=== PATIENT | male | born 1990 | race Caucasian/White ===

== ENCOUNTER 2023-08-26 09:00 | Outpatient (RCR) | payer OTHER, SELFPAY ==
--- NOTE | 2023-04-18 17:20 | PT.OIE ---
Current Diagnoses Pain in unspecified knee (04/18/23) Visit Care Team Role Provider Type THADDEUS Garcia Attending Provider Non-Staff Family Provider Primary Care Provider Referring Provider Specialty: Nursing Address: [facility], Fax: Email: Physical Therapy Initial Evaluation PT-OP-A Visit Information Start: 04/17/23 18:16 Freq: Status: Active Protocol: Document 04/18/23 08:14 NM (Rec: 04/18/23 09:44 NM [id number]) Out-Patient Physical Therapy Visit Information Visit Information Visit Type Initial Evaluation Visit Note 12 visits after eval Visit Start Time 08:15 Visit Stop Time 09:00 Visit Number 1 Evaluation Information Evaluation Date 04/18/23 PT-OP-B Current Condition Start: 04/17/23 18:16 Freq: Status: Active Protocol: Document 04/18/23 08:14 NM (Rec: 04/18/23 09:44 NM [id number]) Current Condition History of Current Condition Onset Date 2 years Current Complaints knee pain History of Current Condition Pt presents with B knee pain. Pt also has B wrist pain, R hip, and low back pain; reports pain not consistent. Pt doesn't have a specific known onset or mechanism of injury for knee pain, but believes that he was performing strenous workouts in the past which likely contributed (e.g. heavy weight lifting including squats, deadlift). Reports has not improved over time. Currently, limiting activity due to discomfort. No reports of instability, locking, clicking . No hx of knee injuries, surgeries. No hx hip, ankle, or back injuries. Family hx of RA (mother, onset 40's); no known inflammatory disease. Pain does not feel like it's moving around in knee. Reports that he is able to push through pain without difficulty, but states that it's annoying. Prior Treatments and Tests No imaging, previous PT Prior Functional Status Baseline Function- ADL's Independent Baseline Function- Mobility Independent Baseline Function- Recreation/Hobbies Exercise/weight lifting 5x/wk (combo leg, arm, back days), running as exercise prn Current Functional Impairments (Reported) Functional Limitations- Recreation/ currently limiting physical Hobbies activity unless necessary for work PT-OP-C Subjective Start: 04/17/23 18:16 Freq: Status: Active Protocol: Document 04/18/23 08:14 NM (Rec: 04/18/23 09:44 NM [id number]) OP-PT Subjective Patient Comments Patient Comments see hx above knee Patient Questionnaires Lower Extremity Functional Scale LEFS Score 80 OP-PT Pain Assessment Location R knee Pain Location Details superior, inferior patella Intensity 3 Scale Used Numeric (0 - 10) Description Aching,Dull Frequency Intermittent Variations/Patterns occurs at rest, during exercise Pain Aggravating Factors Activity,Lifting Other Pain Aggravating Factors Movement; lifting (all LE exercise- knee extensions, kiswahili squats), run Pain Alleviating Factors Cold Other Pain Alleviating Factors stinging nettle tea L knee Pain Location Details superior, inferior to patella, medial knee near patella Intensity 3 Scale Used Numeric (0 - 10) Description Aching,Dull,With Movement Frequency Intermittent Variations/Patterns occurs at rest, during exercise Pain Aggravating Factors Activity,Lifting Other Pain Aggravating Factors Movement; lifting (all LE exercise- knee extensions, kiswahili squats), run Pain Alleviating Factors Cold Other Pain Alleviating Factors stinging nettle tea PT-OP-D Balance Start: 04/17/23 18:16 Freq: Status: Active Protocol: Document 04/18/23 08:14 NM (Rec: 04/18/23 09:44 NM [id number]) Balance Tests Single Limb Standing Single Limb- Right 10 sec, increased sway, no pain Single Limb- Left 10 sec, increased sway, no pain Tandem Tandem Standing 5 sec EC, 20 sec EO before LOB PT-OP-E Functional Tests Start: 04/17/23 18:16 Freq: Status: Active Protocol: Document 04/18/23 08:14 NM (Rec: 04/18/23 09:44 NM [id number]) Functional Tests Squat Test Score 10 Comments up and down pain, valgus, dec DF, Single Leg Squat Test Score 1 ea Comment deep pistol; valgus B, dec DF Other Eccentric step down Name of Test 4 step Comment B knee valgus, pronation, trendelenburg Hop Name of Test double leg hop; single leg hop Score pain with landing double hop; single leg hop pain with ascend/landing Comment lands with valgus on all attempts, pronation at ankle, hip drop PT-OP-F Manual Assessment Start: 04/17/23 18:16 Freq: Status: Active Protocol: Document 04/18/23 08:14 NM (Rec: 04/18/23 09:44 NM [id number]) Manual Assessments Soft Tissue Assessment Soft Tissue Mobility Assessment Decreased hamstring length bilaterally; not formally measured Joint Mobility Assessment Joint Mobility Assessment No B knee instability, no pain with tibial IR/ER. Decreased B hip AROM and PROM. Slight lateral patellar tracking with short and long sitting knee ext, decreased superior translation in sitting. B knee crepitus with repeated knee flex/ext PT-OP-G Mobility & Gait Start: 04/17/23 18:16 Freq: Status: Active Protocol: Document 04/18/23 08:14 NM (Rec: 04/18/23 09:44 NM [id number]) OP Gait Assessment Gait Gait Assistance Required: Independent Distance (Feet) 200 Assistive Devices Assistive Device None Comments Gait Comments Narrow stance. Increased pronation with gait, B foot ER in stance and during swing. Early toe off. Stair Climbing Evaluation Evaluation Level of Assist On Stairs Independent Devices Stair Climbing Assistive Devices None Technique/Endurance Stair Climbing Direction Ascend and Descend Stair Climbing Technique Step Over Step Number of Steps Climbed 4 Stair Climbing Set # Repetitions (reps) 1 Comments Stair Climbing Comments Anterior knee pain with descent, knee valgus and foot pronation bilaterally PT-OP-J Posture/Palpation/Skin Start: 04/17/23 18:16 Freq: Status: Active Protocol: Document 04/18/23 08:14 NM (Rec: 04/18/23 09:44 NM [id number]) Posture Evaluation Position Standing Evaluation View posterior, lateral Head/C-Spine Posture Forward Head T-Spine Posture Increased Kyphosis L-Spine Posture Increased Lordosis Shoulder Posture (L) Rounded,(R) Rounded Scapula Posture (L) Protracted,(R) Protracted Arm Posture (L) Internally Rotated,(R) Internally Rotated Pelvis Posture Anteriorly Tilted Weight Distribution Balanced Hip Posture (L) Externally Rotated,(R) Externally Rotated Knee Posture (L) Genu Valgus,(R) Genu Valgus Patellar Posture (L) Superior,(R) Superior,(L) Laterally Tilted,(R) Laterally Tilted Ankle/Foot Posture (L) Pronated,(R) Pronated Palpation Assessment Location R knee Palpation Location patella, fibula, joint line, tibia, medial and lateral condyles Palpation Findings Tenderness Palpation Details Tenderness along superomedial patella, worse after resisted extension; minimally tender to palpation. No other tenderness noted along patella , joint lines, tibia, femoral condyles. hips not tender to palpation L knee Palpation Location patella, fibula, joint line, tibia, medial and lateral condyles Palpation Findings Tenderness Palpation Details Tenderness along superomedial patella, worse after resisted extension; minimally tender to palpation. No other tenderness noted along patella , joint lines, tibia, femoral condyles. hips not tender to palpation Skin Assessment Other Assessments Skin Assessment Comments No swelling noted in B knees PT-OP-K Range of Motion Start: 04/17/23 18:16 Freq: Status: Active Protocol: Document 04/18/23 08:14 NM (Rec: 04/18/23 09:44 NM [id number]) Hip Goniometric Range of Motion Hip right Flexion w/Knee Flexed 115 Extension 10 Abduction 20 Internal Rotation 17 External Rotation 30 Comments Pain with AROM hip IR Left Flexion w/Knee Flexed 115 Extension 10 Abduction 20 Internal Rotation 15 External Rotation 30 Hip ROM Limitations Hip ROM Limitations Soft Tissue Tightness Comments hip internal rotation Knee Goniometric Range of Motion Knee Right Flexion Active (degrees) 145 Flexion Passive (degrees) 147 Extension Active (degrees) 0 Hyper-Extension Active 4 Comments No pain with active flex/ext translation Left Flexion Active (degrees) 140 Flexion Passive (degrees) 145 Extension Active (degrees) 0 Hyper-Extension Active 5 Comments No pain with active flex/ext translation Ankle and Foot Goniometric Range of Motion Ankle and Foot Right Testing Position Sitting Dorsiflexion with Knee Flexed 10 Plantarflexion 40 Left Testing Position Sitting Dorsiflexion with Knee Flexed 10 Plantarflexion 50 PT-OP-L Special Tests Start: 04/17/23 18:16 Freq: Status: Active Protocol: Document 04/18/23 08:14 NM (Rec: 04/18/23 09:44 NM [id number]) Special Tests Hip Special Tests scour Test Results - Comments bilaterally Labrum Test Results - Comments anterior and posterior labral tests; bilaterally SITA Test Results - Comments decreased mobility but not painful; bilaterally FADIR Test Results - Comments bilaterally Knee Special Tests Patellar Grind Test Test Results + Marlin Test Test Results - Comments bilaterally Posterior Sag Test Results - Comments bilaterally Posterior Draw Test Results - Comments bilaterally George Test Results - Comments bilaterally Anterior Draw Test Results - Comments bilaterally Varus Test Results - Comments 0 and 30 deg; bilaterally Valgus Test Results - Comments 0 and 30 deg; bilaterally PT-OP-M Strength Start: 04/17/23 18:16 Freq: Status: Active Protocol: Document 04/18/23 08:14 NM (Rec: 04/18/23 09:44 NM [id number]) Hip Strength Hip Manual Muscle Testing Right Flexion (L2) 4- Good- Extension (S1) 4- Good- Abduction 4- Good- Adduction 4 Good External Rotation 4 Good Internal Rotation 4 Good Left Flexion (L2) 4- Good- Extension (S1) 4- Good- Abduction 4- Good- Adduction 4 Good External Rotation 4 Good Internal Rotation 4 Good Knee Strength Knee Manual Muscle Testing Right Flexion (S2) 4+ Good+ Extension (L3) 4+ Good+ Comments Pain with resisted extension Left Flexion (S2) 4+ Good+ Extension (L3) 4+ Good+ Comments Pain with resisted extension Ankle/Foot Strength Ankle and Foot Manual Muscle Testing Right Dorsiflexion (L4) 4+ Good+ Plantarflexion (S1) 4+ Good+ Comments Plantarflexion not tested with heel raises Left Dorsiflexion (L4) 4+ Good+ Plantarflexion (S1) 4+ Good+ Comments Plantarflexion not tested with heel raises PT-OP-Q Treatments Start: 04/17/23 18:16 Freq: Status: Active Protocol: Document 04/18/23 08:14 NM (Rec: 04/18/23 09:44 NM [id number]) Self-Care/Home Management Treatment Education Patient Education Body Mechanics,Joint Protection,Pain Management, Posture,Safety Other Education 8 minutes: Educated on modalities (e.g. ice or heat) for pain relief. Educated on exam findings, POC, attendance policy. PT and pt discussed body mechanics during lifting, squatting, stairs, gait. Pt demonstrating increased knee valgus. Recommended activity modifications to current workouts. Due to family hx of inflammatory disease and pt reports of jumping pain between joints, PT and pt discussed recommendation for additional blood work and work up from PCP to check inflammatory markers. PT-OP-T Assessment and Plan Start: 04/17/23 18:16 Freq: Status: Active Protocol: Document 04/18/23 08:14 NM (Rec: 04/18/23 09:44 NM [id number]) Physical Therapy Assessment Rehab Potential Rehabilitation Potential Good Evaluation Complexity Number of Personal Factors/Comorbidities 1-2 Number of Body Systems Impaired 1-2 Clinical Presentation at Evaluation Stable Impairments Impairments Activity Tolerance,Balance, Coordination,Functional Activities,Functional Mobility ,Gait,Integument,Pain,Posture, ROM,Sensation,Soft Tissue Mobility,Strength Goals Four Impairment strength Impairment B hip flex, ext, abd 4-/5 MMT Short Term Goal (STG) Pt will increase B hip flex, ext, and abd MMT to at least 4 /5 in order to demonstrate improved strength required for squats, stairs, and other functional activities STG Duration 5 weeks [facility] Goal (LTG) Pt will increase B hip flex, ext, and abd MMT to at least 4 +/5 in order to demonstrate improved strength required for squats, stairs, and other functional activities LTG Duration 10 weeks Three Impairment HEP Impairment not performing HEP or daily exercise program Short Term Goal (STG) Pt will report compliance with HEP at least 3x/wk in order to demonstrate return to activity and to maximize gains made during PT sessions STG Duration 5 weeks [facility] Goal (LTG) Pt will report at least 50% return to prior level of workouts 3x/wk in order to demonstrate return to activity , improved pain management, and maintenance program for independent exercise. LTG Duration 10 weeks Two Impairment function Impairment 10 B squats painful with excess knee valgus and pronation Short Term Goal (STG) Pt will perform at least 10 bilateral squats without pain or compensation in order to demonstrate improved quad control and glute activation for functional activities. STG Duration 5 weeks [facility] Goal (LTG) Pt will be able to perform at least 10 single leg squats without pain or compensation in order to demonstrate improved quad control and glute activation for functional activities. 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 male presenting with bilateral knee pain with insidious onset beginning approximately 2 years ago. Pt is in the [employer] and has active lifestyle, although currently has been limiting activity due to pain. Pt has history of heavy weight lifting and believes that this contributes to his pain. He is able to participate in all work and ADLs/IADLs without limitation, but reports increased knee pain with activity. Pt's pain is primarily in the anterior knee near patellar tendon, quad tendon, and near superomedial patella. Pain is worse with resisted knee extension, stairs, running, squatting, and jumping. Pt demos excessive bilateral knee valgus, contralateral hip drop, and increased foot pronation with all activities. Has increased translation of tibia over foot in addition to excessive trunk flexion during squats and demonstrates signs of hypermobility. Pt is functionally strong, but has limitations in B hip and knee MMT scores, particularly hip flexion, extension, and abduction. Pt reports most pain with resisted extension, particularly if loaded. He also has lateral patellar tracking and decreased superior translation of patella during knee AROM. Negative for B knee ligament instability tests. Positive for patellar grind test. Pt's symptoms are consistent with PFPS with quad tendon irritation as well; will refer back for imaging or additional work up depending on pt progression. Recommend additional screening for inflammatory markers due to pt family hx and reports of increasing incidents of pain at other joints throughout body without VELIA. PT educated pt on exam findings, POC, attendance policy; pt verbalizes understanding. Pt would benefit from skilled PT for body mechanics retraining, progressive BEL strengthening , and education regarding activity in order to return to PLOF. Physical Therapy Plan Frequency and Duration Frequency of Treatment 1-2x/wk Duration of treatment (weeks) 10 Plan of Care Start Date 04/18/23 Plan of Care End Date 06/28/23 Therapeutic Interventions Therapeutic Interventions Balance Training,Coordination Training,Gait Training,Home Exercise Program,Joint Mobilizations,Manual Therapy, Neuromuscular Re-education, Orthotic/Prosthetic Management ,Patient/Caregiver Education, Self-Care/Home Management,Soft Tissue Mobilization,Taping, Therapeutic Activities, Therapeutic Exercises Modalities Biofeedback,Cold Pack/Ice Massage,Electric Stimulation, Hot Packs,Traction- Mechanical ,Ultrasound,Vasopneumatic Devices Next Visit Focus/Plan Next Note Type Treatment Note Next Visit Plan quad isometrics, hip strengthening, body mechanics training
--- NOTE | 2023-04-22 16:33 | PT.OTN ---
Current Diagnoses Pain in unspecified knee (04/22/23) Other abnormalities of gait and mobility (04/22/23) Weakness (04/22/23) Physical Therapy Treatment Note PT-OP-A Visit Information Start: 04/17/23 18:16 Freq: Status: Active Protocol: Document 04/22/23 09:05 NM (Rec: 04/22/23 09:47 NM [id number]) Out-Patient Physical Therapy Visit Information Visit Information Visit Type Treatment Note Visit Start Time 09:05 Visit Stop Time 09:45 Visit Number 04/09 Evaluation Information Evaluation Date 04/18/23 PT-OP-B Current Condition Start: 04/17/23 18:16 Freq: Status: Active Protocol: Document 04/18/23 08:14 NM (Rec: 04/18/23 09:44 NM [id number]) Current Condition History of Current Condition Onset Date 2 years Current Complaints knee pain History of Current Condition Pt presents with B knee pain. Pt also has B wrist pain, R hip, and low back pain; reports pain not consistent. Pt doesn't have a specific known onset or mechanism of injury for knee pain, but believes that he was performing strenous workouts in the past which likely contributed (e.g. heavy weight lifting including squats, deadlift). Reports has not improved over time. Currently, limiting activity due to discomfort. No reports of instability, locking, clicking . No hx of knee injuries, surgeries. No hx hip, ankle, or back injuries. Family hx of RA (mother, onset 40's); no known inflammatory disease. Pain does not feel like it's moving around in knee. Reports that he is able to push through pain without difficulty, but states that it's annoying. Prior Treatments and Tests No imaging, previous PT Prior Functional Status Baseline Function- ADL's Independent Baseline Function- Mobility Independent Baseline Function- Recreation/Hobbies Exercise/weight lifting 5x/wk (combo leg, arm, back days), running as exercise prn Current Functional Impairments (Reported) Functional Limitations- Recreation/ currently limiting physical Hobbies activity unless necessary for work PT-OP-C Subjective Start: 04/17/23 18:16 Freq: Status: Active Protocol: Document 04/22/23 09:05 NM (Rec: 04/22/23 09:47 NM [id number]) OP-PT Subjective Patient Comments Patient Comments Pt report no change since IE. He states he is continuing to limit his activity due to pain . He is building a barn, reports no knee pain with that activity. PT-OP-D Balance Start: 04/17/23 18:16 Freq: Status: Active Protocol: Document 04/18/23 08:14 NM (Rec: 04/18/23 09:44 NM [id number]) Balance Tests Single Limb Standing Single Limb- Right 10 sec, increased sway, no pain Single Limb- Left 10 sec, increased sway, no pain Tandem Tandem Standing 5 sec EC, 20 sec EO before LOB PT-OP-E Functional Tests Start: 04/17/23 18:16 Freq: Status: Active Protocol: Document 04/18/23 08:14 NM (Rec: 04/18/23 09:44 NM [id number]) Functional Tests Squat Test Score 10 Comments up and down pain, valgus, dec DF, Single Leg Squat Test Score 1 ea Comment deep pistol; valgus B, dec DF Other Eccentric step down Name of Test 4 step Comment B knee valgus, pronation, trendelenburg Hop Name of Test double leg hop; single leg hop Score pain with landing double hop; single leg hop pain with ascend/landing Comment lands with valgus on all attempts, pronation at ankle, hip drop PT-OP-F Manual Assessment Start: 04/17/23 18:16 Freq: Status: Active Protocol: Document 04/18/23 08:14 NM (Rec: 04/18/23 09:44 NM [id number]) Manual Assessments Soft Tissue Assessment Soft Tissue Mobility Assessment Decreased hamstring length bilaterally; not formally measured Joint Mobility Assessment Joint Mobility Assessment No B knee instability, no pain with tibial IR/ER. Decreased B hip AROM and PROM. Slight lateral patellar tracking with short and long sitting knee ext, decreased superior translation in sitting. B knee crepitus with repeated knee flex/ext PT-OP-G Mobility & Gait Start: 04/17/23 18:16 Freq: Status: Active Protocol: Document 04/18/23 08:14 NM (Rec: 04/18/23 09:44 NM [id number]) OP Gait Assessment Gait Gait Assistance Required: Independent Distance (Feet) 200 Assistive Devices Assistive Device None Comments Gait Comments Narrow stance. Increased pronation with gait, B foot ER in stance and during swing. Early toe off. Stair Climbing Evaluation Evaluation Level of Assist On Stairs Independent Devices Stair Climbing Assistive Devices None Technique/Endurance Stair Climbing Direction Ascend and Descend Stair Climbing Technique Step Over Step Number of Steps Climbed 4 Stair Climbing Set # Repetitions (reps) 1 Comments Stair Climbing Comments Anterior knee pain with descent, knee valgus and foot pronation bilaterally PT-OP-J Posture/Palpation/Skin Start: 04/17/23 18:16 Freq: Status: Active Protocol: Document 04/18/23 08:14 NM (Rec: 04/18/23 09:44 NM [id number]) Posture Evaluation Position Standing Evaluation View posterior, lateral Head/C-Spine Posture Forward Head T-Spine Posture Increased Kyphosis L-Spine Posture Increased Lordosis Shoulder Posture (L) Rounded,(R) Rounded Scapula Posture (L) Protracted,(R) Protracted Arm Posture (L) Internally Rotated,(R) Internally Rotated Pelvis Posture Anteriorly Tilted Weight Distribution Balanced Hip Posture (L) Externally Rotated,(R) Externally Rotated Knee Posture (L) Genu Valgus,(R) Genu Valgus Patellar Posture (L) Superior,(R) Superior,(L) Laterally Tilted,(R) Laterally Tilted Ankle/Foot Posture (L) Pronated,(R) Pronated Palpation Assessment Location R knee Palpation Location patella, fibula, joint line, tibia, medial and lateral condyles Palpation Findings Tenderness Palpation Details Tenderness along superomedial patella, worse after resisted extension; minimally tender to palpation. No other tenderness noted along patella , joint lines, tibia, femoral condyles. hips not tender to palpation L knee Palpation Location patella, fibula, joint line, tibia, medial and lateral condyles Palpation Findings Tenderness Palpation Details Tenderness along superomedial patella, worse after resisted extension; minimally tender to palpation. No other tenderness noted along patella , joint lines, tibia, femoral condyles. hips not tender to palpation Skin Assessment Other Assessments Skin Assessment Comments No swelling noted in B knees PT-OP-K Range of Motion Start: 04/17/23 18:16 Freq: Status: Active Protocol: Document 04/18/23 08:14 NM (Rec: 04/18/23 09:44 NM [id number]) Hip Goniometric Range of Motion Hip right Flexion w/Knee Flexed 115 Extension 10 Abduction 20 Internal Rotation 17 External Rotation 30 Comments Pain with AROM hip IR Left Flexion w/Knee Flexed 115 Extension 10 Abduction 20 Internal Rotation 15 External Rotation 30 Hip ROM Limitations Hip ROM Limitations Soft Tissue Tightness Comments hip internal rotation Knee Goniometric Range of Motion Knee Right Flexion Active (degrees) 145 Flexion Passive (degrees) 147 Extension Active (degrees) 0 Hyper-Extension Active 4 Comments No pain with active flex/ext translation Left Flexion Active (degrees) 140 Flexion Passive (degrees) 145 Extension Active (degrees) 0 Hyper-Extension Active 5 Comments No pain with active flex/ext translation Ankle and Foot Goniometric Range of Motion Ankle and Foot Right Testing Position Sitting Dorsiflexion with Knee Flexed 10 Plantarflexion 40 Left Testing Position Sitting Dorsiflexion with Knee Flexed 10 Plantarflexion 50 PT-OP-L Special Tests Start: 04/17/23 18:16 Freq: Status: Active Protocol: Document 04/18/23 08:14 NM (Rec: 04/18/23 09:44 NM [id number]) Special Tests Hip Special Tests scour Test Results - Comments bilaterally Labrum Test Results - Comments anterior and posterior labral tests; bilaterally SITA Test Results - Comments decreased mobility but not painful; bilaterally FADIR Test Results - Comments bilaterally Knee Special Tests Patellar Grind Test Test Results + Marlin Test Test Results - Comments bilaterally Posterior Sag Test Results - Comments bilaterally Posterior Draw Test Results - Comments bilaterally George Test Results - Comments bilaterally Anterior Draw Test Results - Comments bilaterally Varus Test Results - Comments 0 and 30 deg; bilaterally Valgus Test Results - Comments 0 and 30 deg; bilaterally PT-OP-M Strength Start: 04/17/23 18:16 Freq: Status: Active Protocol: Document 04/18/23 08:14 NM (Rec: 04/18/23 09:44 NM [id number]) Hip Strength Hip Manual Muscle Testing Right Flexion (L2) 4- Good- Extension (S1) 4- Good- Abduction 4- Good- Adduction 4 Good External Rotation 4 Good Internal Rotation 4 Good Left Flexion (L2) 4- Good- Extension (S1) 4- Good- Abduction 4- Good- Adduction 4 Good External Rotation 4 Good Internal Rotation 4 Good Knee Strength Knee Manual Muscle Testing Right Flexion (S2) 4+ Good+ Extension (L3) 4+ Good+ Comments Pain with resisted extension Left Flexion (S2) 4+ Good+ Extension (L3) 4+ Good+ Comments Pain with resisted extension Ankle/Foot Strength Ankle and Foot Manual Muscle Testing Right Dorsiflexion (L4) 4+ Good+ Plantarflexion (S1) 4+ Good+ Comments Plantarflexion not tested with heel raises Left Dorsiflexion (L4) 4+ Good+ Plantarflexion (S1) 4+ Good+ Comments Plantarflexion not tested with heel raises PT-OP-Q Treatments Start: 04/17/23 18:16 Freq: Status: Active Protocol: Document 04/22/23 09:05 NM (Rec: 04/22/23 09:47 NM [id number]) Cardio Equipment Bicycle (Upright) Duration (Minutes) 4 Resistance 4 Seat Position 5 Other reports feels muscles but states not knee pain Therapeutic Exercises Supine Exercises single leg bridge Supine Exercise Name added to [facility] (progressed from B bridge) Side bilateral Resistance AROM Equipment Used WB on heels (toes elevated) Reps/Minutes 2x8 Comments reports no knee pain; cued level pelvis Standing Exercises wall squats Standing Exercise Name trialed Side bilateral Resistance lvl 3 tb around thighs Equipment Used wall, more glute activation, limit knees over toes Reps/Minutes 3x45, depth btwn 60-90 deg Comments cued pain free depth, no >90 deg; glute activation, no knee >toe standing clams Standing Exercise Name added to [facility] Side bilateral Resistance lvl 3 tb around thighs Equipment Used foot on wall, isometric, slight squat on stance LE Reps/Minutes 2x30 ea Comments cued for form, hip hinge; reports no knee pain side steps Standing Exercise Name added to HEP Side bilateral Resistance lvl 3 tb around toes Equipment Used squat position for increased glute activation Reps/Minutes 2x20 ft Comments cued neutral toes, foot clearance, no knee valgus dorsiflexion mobilization Side bilateral Resistance AROM Equipment Used 16 step; PT mobilizing at talus Reps/Minutes 5x5 Comments cued heel on step, not flex knee to point of pain; no pain reported Therapeutic Activity Therapeutic Activity hip hinge Name for body mechanics training Reps/Minutes 2x5 ea Comments In standing in front of mirror for verbal cues. Prior to side steps/squats. Chair behind pt, knee slight flexion but not moving into squat. Demos improved form with reps Squats Name for body mechanics training, 60 deg knee flexion, lvl 3 band around thighs Reps/Minutes 3x5 Comments To mesh chair with foam on top , with mirror in front of pt for visual cues. PT verbally cueing pt for weight shift toward center of foot rather than on heel, hip hinge toward chair for increased glute activation, equal WB due to tendency to rotate at hips with increased depth. Band added around thighs to limit B knee valgus Manual Therapy Treatment Joint Mobilizations L knee Joint patellar Direction Med/lat, Sup/inf, med tilts Grade II Body Position Supine Reps/Duration 1x20 ea Comments For improved patellar mobility , pain reduction. Demos prn crepitus with mobilization but reports not painful. Monitored for pain, none reported. Decreased gliding superiorly, medial tilts. Tendency for slight lateral tracking R knee Joint patellar Direction med/lat, sup/inf, med tilts Grade II Body Position Supine Reps/Duration 1x20 ea Comments For improved patellar mobility , pain reduction. Demos prn crepitus with mobilization but reports not painful. Monitored for pain, none reported. Decreased gliding superiorly, medial tilts. Tendency for slight lateral tracking Self-Care/Home Management Treatment Education Patient Education Body Mechanics,Home Exercise Program,Joint Protection,Pain Management Other Education Educated on body mechanics to limit knee over toe for pain reduction now, emphasize increased glute activation with hip hinge/squat, limit squat depth >90 deg due to pain; modalities for pain management prn. HEP: standing clam, side steps with band at foot, wall squat with band, single leg bridge. Bike for cardio at home/work, modify activity for no running at this time PT-OP-T Assessment and Plan Start: 04/17/23 18:16 Freq: Status: Active Protocol: Document 04/22/23 09:05 NM (Rec: 04/22/23 09:47 NM [id number]) Physical Therapy Assessment Goals Four Impairment strength Impairment B hip flex, ext, abd 4-/5 MMT Short Term Goal (STG) Pt will increase B hip flex, ext, and abd MMT to at least 4 /5 in order to demonstrate improved strength required for squats, stairs, and other functional activities STG Duration 5 weeks [employer] Goal (LTG) Pt will increase B hip flex, ext, and abd MMT to at least 4 +/5 in order to demonstrate improved strength required for squats, stairs, and other functional activities LTG Duration 10 weeks Three Impairment HEP Impairment not performing HEP or daily exercise program Short Term Goal (STG) Pt will report compliance with HEP at least 3x/wk in order to demonstrate return to activity and to maximize gains made during PT sessions STG Duration 5 weeks [employer] Goal (LTG) Pt will report at least 50% return to prior level of workouts 3x/wk in order to demonstrate return to activity , improved pain management, and maintenance program for independent exercise. LTG Duration 10 weeks Two Impairment function Impairment 10 B squats painful with excess knee valgus and pronation Short Term Goal (STG) Pt will perform at least 10 bilateral squats without pain or compensation in order to demonstrate improved quad control and glute activation for functional activities. STG Duration 5 weeks Skilled Nursing Goal (LTG) Pt will be able to perform at least 10 single leg squats without pain or compensation in order to demonstrate improved quad control and glute activation for functional activities. LTG Duration 10 weeks One Impairment function Short Term Goal (STG) Pt will perform at least 10 eccentric step downs without compensation and reports of <3 /10 B knee pain in order to demonstrate improved hip strength and quad control STG Duration 5 weeks [employer] Goal (LTG) Pt will be able to perform at least 12 stairs without reports of increased pain in order to demonstrate improved hip strength and quad control LTG Duration 10 weeks Assessment Summary Assessment Pt tolerated treatment well without increased B knee pain. Initiated glute and hip abduction strengthening. Pt challenged with standing clam isometrics, but with good squat form and activity tolerance during side steps. PT cued pt for form, hip hinge and theraband at ankle to increase glute activation and limit quad activity. Limited knee flexion AROM during squat to >90 deg to limit possible knee pain, improve mechanics. Trialed standing dorsiflexion mobilization as part of squat retraining, improve ankle mobility. Initiated body mechanics training to offload knee during squat, increase glute activation during exercise. Pt challenged with bilateral squats to chair due to tendency for knee valgus. PT verbally cued pt, used mirror for increased feedback which improved pt form. Will continue to address in future sessions. During manual treatment, trialed grade II patellar mobilizations for pain reduction. Pt with crepitus of B knees but reports not painful with mobilization; demos decreased patellar mobility superiorly and with medial tilts. Pt would benefit from progressive hip abductor/glute strengthening, midrange quad isometrics, and body mechanics training in order to return to PLOF, decrease pain symptoms with activity. Physical Therapy Plan Frequency and Duration Frequency of Treatment 1-2x/wk Duration of treatment (weeks) 10 Plan of Care Start Date 04/18/23 Plan of Care End Date 06/28/23 Therapeutic Interventions Therapeutic Interventions Balance Training,Coordination Training,Gait Training,Home Exercise Program,Joint Mobilizations,Manual Therapy, Neuromuscular Re-education, Orthotic/Prosthetic Management ,Patient/Caregiver Education, Self-Care/Home Management,Soft Tissue Mobilization,Taping, Therapeutic Activities, Therapeutic Exercises Modalities Biofeedback,Cold Pack/Ice Massage,Electric Stimulation, Hot Packs,Traction- Mechanical ,Ultrasound,Vasopneumatic Devices Next Visit Focus/Plan Next Note Type Treatment Note Next Visit Plan LAQ/quad isometrics in midrange (progress as tolerated)- should be pain free. Progress hip abd/glute strengthening (trial SL hip abd if not do well with steps/ clams). Roll out TFL/glute ( ITB) and strengthen. Progress squat with good mechanics and eventually progress to leg press. quad isometrics, hip strengthening, body mechanics training Manual prn: STM, patellar mobilizations
--- NOTE | 2023-04-25 09:40 | PT.OTN ---
Current Diagnoses Pain in unspecified knee (04/25/23) Other abnormalities of gait and mobility (04/25/23) Weakness (04/25/23) Physical Therapy Treatment Note PT-OP-A Visit Information Start: 04/17/23 18:16 Freq: Status: Active Protocol: Document 04/25/23 08:56 SP (Rec: 04/25/23 09:48 SP [id number]) Out-Patient Physical Therapy Visit Information Visit Information Visit Type Treatment Note Visit Start Time 08:58 Visit Stop Time 09:40 Visit Number 3 Number of TEAM [employer] Visits 1 Evaluation Information Evaluation Date 04/18/23 PT-OP-B Current Condition Start: 04/17/23 18:16 Freq: Status: Active Protocol: Document 04/18/23 08:14 NM (Rec: 04/18/23 09:44 NM [id number]) Current Condition History of Current Condition Onset Date 2 years Current Complaints knee pain History of Current Condition Pt presents with B knee pain. Pt also has B wrist pain, R hip, and low back pain; reports pain not consistent. Pt doesn't have a specific known onset or mechanism of injury for knee pain, but believes that he was performing strenous workouts in the past which likely contributed (e.g. heavy weight lifting including squats, deadlift). Reports has not improved over time. Currently, limiting activity due to discomfort. No reports of instability, locking, clicking . No hx of knee injuries, surgeries. No hx hip, ankle, or back injuries. Family hx of RA (mother, onset 40's); no known inflammatory disease. Pain does not feel like it's moving around in knee. Reports that he is able to push through pain without difficulty, but states that it's annoying. Prior Treatments and Tests No imaging, previous PT Prior Functional Status Baseline Function- ADL's Independent Baseline Function- Mobility Independent Baseline Function- Recreation/Hobbies Exercise/weight lifting 5x/wk (combo leg, arm, back days), running as exercise prn Current Functional Impairments (Reported) Functional Limitations- Recreation/ currently limiting physical Hobbies activity unless necessary for work PT-OP-C Subjective Start: 04/17/23 18:16 Freq: Status: Active Protocol: Document 04/25/23 08:56 SP (Rec: 04/25/23 09:48 SP [id number]) OP-PT Subjective Patient Comments Patient Comments Pt reports still having 3/10 pain lateral R knee and throughout last tx but not so bad prevents him from do needed tasks. PT-OP-D Balance Start: 04/17/23 18:16 Freq: Status: Active Protocol: Document 04/18/23 08:14 NM (Rec: 04/18/23 09:44 NM [id number]) Balance Tests Single Limb Standing Single Limb- Right 10 sec, increased sway, no pain Single Limb- Left 10 sec, increased sway, no pain Tandem Tandem Standing 5 sec EC, 20 sec EO before LOB PT-OP-E Functional Tests Start: 04/17/23 18:16 Freq: Status: Active Protocol: Document 04/18/23 08:14 NM (Rec: 04/18/23 09:44 NM [id number]) Functional Tests Squat Test Score 10 Comments up and down pain, valgus, dec DF, Single Leg Squat Test Score 1 ea Comment deep pistol; valgus B, dec DF Other Eccentric step down Name of Test 4 step Comment B knee valgus, pronation, trendelenburg Hop Name of Test double leg hop; single leg hop Score pain with landing double hop; single leg hop pain with ascend/landing Comment lands with valgus on all attempts, pronation at ankle, hip drop PT-OP-F Manual Assessment Start: 04/17/23 18:16 Freq: Status: Active Protocol: Document 04/18/23 08:14 NM (Rec: 04/18/23 09:44 NM [id number]) Manual Assessments Soft Tissue Assessment Soft Tissue Mobility Assessment Decreased hamstring length bilaterally; not formally measured Joint Mobility Assessment Joint Mobility Assessment No B knee instability, no pain with tibial IR/ER. Decreased B hip AROM and PROM. Slight lateral patellar tracking with short and long sitting knee ext, decreased superior translation in sitting. B knee crepitus with repeated knee flex/ext PT-OP-G Mobility & Gait Start: 04/17/23 18:16 Freq: Status: Active Protocol: Document 04/18/23 08:14 NM (Rec: 04/18/23 09:44 NM [id number]) OP Gait Assessment Gait Gait Assistance Required: Independent Distance (Feet) 200 Assistive Devices Assistive Device None Comments Gait Comments Narrow stance. Increased pronation with gait, B foot ER in stance and during swing. Early toe off. Stair Climbing Evaluation Evaluation Level of Assist On Stairs Independent Devices Stair Climbing Assistive Devices None Technique/Endurance Stair Climbing Direction Ascend and Descend Stair Climbing Technique Step Over Step Number of Steps Climbed 4 Stair Climbing Set # Repetitions (reps) 1 Comments Stair Climbing Comments Anterior knee pain with descent, knee valgus and foot pronation bilaterally PT-OP-J Posture/Palpation/Skin Start: 04/17/23 18:16 Freq: Status: Active Protocol: Document 04/18/23 08:14 NM (Rec: 04/18/23 09:44 NM [id number]) Posture Evaluation Position Standing Evaluation View posterior, lateral Head/C-Spine Posture Forward Head T-Spine Posture Increased Kyphosis L-Spine Posture Increased Lordosis Shoulder Posture (L) Rounded,(R) Rounded Scapula Posture (L) Protracted,(R) Protracted Arm Posture (L) Internally Rotated,(R) Internally Rotated Pelvis Posture Anteriorly Tilted Weight Distribution Balanced Hip Posture (L) Externally Rotated,(R) Externally Rotated Knee Posture (L) Genu Valgus,(R) Genu Valgus Patellar Posture (L) Superior,(R) Superior,(L) Laterally Tilted,(R) Laterally Tilted Ankle/Foot Posture (L) Pronated,(R) Pronated Palpation Assessment Location R knee Palpation Location patella, fibula, joint line, tibia, medial and lateral condyles Palpation Findings Tenderness Palpation Details Tenderness along superomedial patella, worse after resisted extension; minimally tender to palpation. No other tenderness noted along patella , joint lines, tibia, femoral condyles. hips not tender to palpation L knee Palpation Location patella, fibula, joint line, tibia, medial and lateral condyles Palpation Findings Tenderness Palpation Details Tenderness along superomedial patella, worse after resisted extension; minimally tender to palpation. No other tenderness noted along patella , joint lines, tibia, femoral condyles. hips not tender to palpation Skin Assessment Other Assessments Skin Assessment Comments No swelling noted in B knees PT-OP-K Range of Motion Start: 04/17/23 18:16 Freq: Status: Active Protocol: Document 04/18/23 08:14 NM (Rec: 04/18/23 09:44 NM [id number]) Hip Goniometric Range of Motion Hip right Flexion w/Knee Flexed 115 Extension 10 Abduction 20 Internal Rotation 17 External Rotation 30 Comments Pain with AROM hip IR Left Flexion w/Knee Flexed 115 Extension 10 Abduction 20 Internal Rotation 15 External Rotation 30 Hip ROM Limitations Hip ROM Limitations Soft Tissue Tightness Comments hip internal rotation Knee Goniometric Range of Motion Knee Right Flexion Active (degrees) 145 Flexion Passive (degrees) 147 Extension Active (degrees) 0 Hyper-Extension Active 4 Comments No pain with active flex/ext translation Left Flexion Active (degrees) 140 Flexion Passive (degrees) 145 Extension Active (degrees) 0 Hyper-Extension Active 5 Comments No pain with active flex/ext translation Ankle and Foot Goniometric Range of Motion Ankle and Foot Right Testing Position Sitting Dorsiflexion with Knee Flexed 10 Plantarflexion 40 Left Testing Position Sitting Dorsiflexion with Knee Flexed 10 Plantarflexion 50 PT-OP-L Special Tests Start: 04/17/23 18:16 Freq: Status: Active Protocol: Document 04/18/23 08:14 NM (Rec: 04/18/23 09:44 NM [id number]) Special Tests Hip Special Tests scour Test Results - Comments bilaterally Labrum Test Results - Comments anterior and posterior labral tests; bilaterally SITA Test Results - Comments decreased mobility but not painful; bilaterally FADIR Test Results - Comments bilaterally Knee Special Tests Patellar Grind Test Test Results + Marlin Test Test Results - Comments bilaterally Posterior Sag Test Results - Comments bilaterally Posterior Draw Test Results - Comments bilaterally George Test Results - Comments bilaterally Anterior Draw Test Results - Comments bilaterally Varus Test Results - Comments 0 and 30 deg; bilaterally Valgus Test Results - Comments 0 and 30 deg; bilaterally PT-OP-M Strength Start: 04/17/23 18:16 Freq: Status: Active Protocol: Document 04/18/23 08:14 NM (Rec: 04/18/23 09:44 NM [id number]) Hip Strength Hip Manual Muscle Testing Right Flexion (L2) 4- Good- Extension (S1) 4- Good- Abduction 4- Good- Adduction 4 Good External Rotation 4 Good Internal Rotation 4 Good Left Flexion (L2) 4- Good- Extension (S1) 4- Good- Abduction 4- Good- Adduction 4 Good External Rotation 4 Good Internal Rotation 4 Good Knee Strength Knee Manual Muscle Testing Right Flexion (S2) 4+ Good+ Extension (L3) 4+ Good+ Comments Pain with resisted extension Left Flexion (S2) 4+ Good+ Extension (L3) 4+ Good+ Comments Pain with resisted extension Ankle/Foot Strength Ankle and Foot Manual Muscle Testing Right Dorsiflexion (L4) 4+ Good+ Plantarflexion (S1) 4+ Good+ Comments Plantarflexion not tested with heel raises Left Dorsiflexion (L4) 4+ Good+ Plantarflexion (S1) 4+ Good+ Comments Plantarflexion not tested with heel raises PT-OP-Q Treatments Start: 04/17/23 18:16 Freq: Status: Active Protocol: Document 04/25/23 08:56 SP (Rec: 04/25/23 09:48 SP [id number]) Cardio Equipment Bicycle (Upright) Duration (Minutes) 4 Resistance 4 Seat Position 5 Other reports feels muscles but states not knee pain Therapeutic Exercises Supine Exercises single leg bridge Supine Exercise Name reviewed HEP Side bilateral Resistance AROM Equipment Used WB on heels (toes elevated) Reps/Minutes 2x15 Comments reports no knee pain; improved pelvis level Sitting Exercises LAQ Sitting Exercise Name isometric: add next tx Standing Exercises SL RDL Standing Exercise Name add future stationary lunges Standing Exercise Name trialed- recheck for HEP next tx Side bilateral Equipment Used used mirror for self mechanics and form Reps/Minutes x15 each LE Comments cued PHILIP and ankle SL sliders Standing Exercise Name trialed- recheck for HEP next tx Side bilateral Resistance AROM (add TB if able/tolerate) Equipment Used slider Reps/Minutes 4 directions x5 sets Comments cued stance LE with/behind knee, slower pacing can come back from wall squats Standing Exercise Name added to HEP Side bilateral Resistance lvl 3 tb around thighs Equipment Used wall, more glute activation, limit knees over toes Reps/Minutes 45, 53, 60, depth btwn 60- 90 deg Comments cued pain free depth, no >90 deg; glute activation, no knee >toe standing clams Standing Exercise Name reviewed HEP Side bilateral Resistance lvl 3 tb around thighs Equipment Used foot on wall, isometric, slight squat on stance LE Reps/Minutes 2x30 ea Comments cued for form, hip hinge; reports no knee pain side steps Standing Exercise Name reviewed HEP: lateral, fwd/bwd Side bilateral Resistance lvl 3 tb at ankles Equipment Used squat position for increased glute activation Reps/Minutes 2x30 ft each direction Comments cued neutral toes, little bigger than normal stepping dorsiflexion mobilization Side bilateral Resistance AROM Equipment Used 16>8 step; G TB anterior ankle/under opp foot arch-self mob Reps/Minutes 5x5 Comments cued heel on step, not flex knee to point of pain; no pain reported Other Exercises stretching Other Exercise Name add next tx: ITB, quad, HS, Pirif, TFL, hip flexor Self STMs Other Exercise Name Next add: quad, HS, ITB, add, calf Side right Equipment Used ball, rolling pin, foam roller Comments discussed not performed Therapeutic Activity Therapeutic Activity Squats Name for body mechanics training, 60 deg knee flexion, lvl 3 band around thighs Reps/Minutes 3x5 Comments cued wt shift L midline, air squat. PT-OP-T Assessment and Plan Start: 04/17/23 18:16 Freq: Status: Active Protocol: Document 04/25/23 08:56 SP (Rec: 04/25/23 09:48 SP [id number]) Physical Therapy Assessment Goals Four Impairment strength Impairment B hip flex, ext, abd 4-/5 MMT Short Term Goal (STG) Pt will increase B hip flex, ext, and abd MMT to at least 4 /5 in order to demonstrate improved strength required for squats, stairs, and other functional activities STG Duration 5 weeks Long-Term Goal (LTG) Pt will increase B hip flex, ext, and abd MMT to at least 4 +/5 in order to demonstrate improved strength required for squats, stairs, and other functional activities LTG Duration 10 weeks Three Impairment HEP Impairment not performing HEP or daily exercise program Short Term Goal (STG) Pt will report compliance with HEP at least 3x/wk in order to demonstrate return to activity and to maximize gains made during PT sessions STG Duration 5 weeks [employer] Goal (LTG) Pt will report at least 50% return to prior level of workouts 3x/wk in order to demonstrate return to activity , improved pain management, and maintenance program for independent exercise. LTG Duration 10 weeks Two Impairment function Impairment 10 B squats painful with excess knee valgus and pronation Short Term Goal (STG) Pt will perform at least 10 bilateral squats without pain or compensation in order to demonstrate improved quad control and glute activation for functional activities. STG Duration 5 weeks Long-Term Goal (LTG) Pt will be able to perform at least 10 single leg squats without pain or compensation in order to demonstrate improved quad control and glute activation for functional activities. LTG Duration 10 weeks One Impairment function Short Term Goal (STG) Pt will perform at least 10 eccentric step downs without compensation and reports of <3 /10 B knee pain in order to demonstrate improved hip strength and quad control STG Duration 5 weeks [employer] Estate [employer] Goal (LTG) Pt will be able to perform at least 12 stairs without reports of increased pain in order to demonstrate improved hip strength and quad control LTG Duration 10 weeks Assessment Summary Assessment Pt tolerated tx well. No reports of pain throughout tx. Tolerated increase distance/ reps stand ex. Good glut and hip abd engagement tiring. Cues as needed for knee/ankle alignment. Good self ankle mob with TB support this tx for carryover home if needed. no adverse to progress SL activities, check response next tx for allowance progression SL. Physical Therapy Plan Frequency and Duration Frequency of Treatment 1-2x/wk Duration of treatment (weeks) 10 Plan of Care Start Date 04/18/23 Plan of Care End Date 06/28/23 Therapeutic Interventions Therapeutic Interventions Balance Training,Coordination Training,Gait Training,Home Exercise Program,Joint Mobilizations,Manual Therapy, Neuromuscular Re-education, Orthotic/Prosthetic Management ,Patient/Caregiver Education, Self-Care/Home Management,Soft Tissue Mobilization,Taping, Therapeutic Activities, Therapeutic Exercises Modalities Biofeedback,Cold Pack/Ice Massage,Electric Stimulation, Hot Packs,Traction- Mechanical ,Ultrasound,Vasopneumatic Devices Next Visit Focus/Plan Next Note Type Treatment Note Next Visit Plan Next tx: LAQ/quad isometrics in midrange (progress as tolerated)- should be pain free. progress RDL if able. Progress hip abd/glute strengthening (trial SL hip abd if not do well with steps/ clams). Roll out TFL/glute ( ITB) and strengthen. Progress squat with good mechanics and eventually progress to leg press. quad isometrics, hip strengthening, body mechanics training Manual prn: STM, patellar mobilizations
--- NOTE | 2023-05-01 12:30 | PT.OTN ---
Current Diagnoses Pain in unspecified knee (05/01/23) Other abnormalities of gait and mobility (05/01/23) Weakness (05/01/23) Physical Therapy Treatment Note PT-OP-A Visit Information Start: 04/17/23 18:16 Freq: Status: Active Protocol: Document 05/01/23 08:01 AB (Rec: 05/01/23 09:28 AB [id number]) Out-Patient Physical Therapy Visit Information Visit Information Visit Type Treatment Note Visit Note Visit [email or web address] Access Code: [email or web address] Visit Start Time 08:27 Visit Stop Time 08:59 Visit Number 06/07 Number of DISPLAY SPECIALIST Visits 2 Evaluation Information Evaluation Date 04/18/23 PT-OP-B Current Condition Start: 04/17/23 18:16 Freq: Status: Active Protocol: Document 04/18/23 08:14 NM (Rec: 04/18/23 09:44 NM [id number]) Current Condition History of Current Condition Onset Date 2 years Current Complaints knee pain History of Current Condition Pt presents with B knee pain. Pt also has B wrist pain, R hip, and low back pain; reports pain not consistent. Pt doesn't have a specific known onset or mechanism of injury for knee pain, but believes that he was performing strenous workouts in the past which likely contributed (e.g. heavy weight lifting including squats, deadlift). Reports has not improved over time. Currently, limiting activity due to discomfort. No reports of instability, locking, clicking . No hx of knee injuries, surgeries. No hx hip, ankle, or back injuries. Family hx of RA (mother, onset 40's); no known inflammatory disease. Pain does not feel like it's moving around in knee. Reports that he is able to push through pain without difficulty, but states that it's annoying. Prior Treatments and Tests No imaging, previous PT Prior Functional Status Baseline Function- ADL's Independent Baseline Function- Mobility Independent Baseline Function- Recreation/Hobbies Exercise/weight lifting 5x/wk (combo leg, arm, back days), running as exercise prn Current Functional Impairments (Reported) Functional Limitations- Recreation/ currently limiting physical Hobbies activity unless necessary for work PT-OP-C Subjective Start: 04/17/23 18:16 Freq: Status: Active Protocol: Document 05/01/23 08:01 AB (Rec: 05/01/23 09:28 AB [id number]) OP-PT Subjective Patient Comments Patient Comments Patient reports the knees are the same, reports able to perform the exercise 4X a week . PT-OP-D Balance Start: 04/17/23 18:16 Freq: Status: Active Protocol: Document 04/18/23 08:14 NM (Rec: 04/18/23 09:44 NM [id number]) Balance Tests Single Limb Standing Single Limb- Right 10 sec, increased sway, no pain Single Limb- Left 10 sec, increased sway, no pain Tandem Tandem Standing 5 sec EC, 20 sec EO before LOB PT-OP-E Functional Tests Start: 04/17/23 18:16 Freq: Status: Active Protocol: Document 04/18/23 08:14 NM (Rec: 04/18/23 09:44 NM [id number]) Functional Tests Squat Test Score 10 Comments up and down pain, valgus, dec DF, Single Leg Squat Test Score 1 ea Comment deep pistol; valgus B, dec DF Other Eccentric step down Name of Test 4 step Comment B knee valgus, pronation, trendelenburg Hop Name of Test double leg hop; single leg hop Score pain with landing double hop; single leg hop pain with ascend/landing Comment lands with valgus on all attempts, pronation at ankle, hip drop PT-OP-F Manual Assessment Start: 04/17/23 18:16 Freq: Status: Active Protocol: Document 04/18/23 08:14 NM (Rec: 04/18/23 09:44 NM [id number]) Manual Assessments Soft Tissue Assessment Soft Tissue Mobility Assessment Decreased hamstring length bilaterally; not formally measured Joint Mobility Assessment Joint Mobility Assessment No B knee instability, no pain with tibial IR/ER. Decreased B hip AROM and PROM. Slight lateral patellar tracking with short and long sitting knee ext, decreased superior translation in sitting. B knee crepitus with repeated knee flex/ext PT-OP-G Mobility & Gait Start: 04/17/23 18:16 Freq: Status: Active Protocol: Document 04/18/23 08:14 NM (Rec: 04/18/23 09:44 NM [id number]) OP Gait Assessment Gait Gait Assistance Required: Independent Distance (Feet) 200 Assistive Devices Assistive Device None Comments Gait Comments Narrow stance. Increased pronation with gait, B foot ER in stance and during swing. Early toe off. Stair Climbing Evaluation Evaluation Level of Assist On Stairs Independent Devices Stair Climbing Assistive Devices None Technique/Endurance Stair Climbing Direction Ascend and Descend Stair Climbing Technique Step Over Step Number of Steps Climbed 4 Stair Climbing Set # Repetitions (reps) 1 Comments Stair Climbing Comments Anterior knee pain with descent, knee valgus and foot pronation bilaterally PT-OP-J Posture/Palpation/Skin Start: 04/17/23 18:16 Freq: Status: Active Protocol: Document 04/18/23 08:14 NM (Rec: 04/18/23 09:44 NM [id number]) Posture Evaluation Position Standing Evaluation View posterior, lateral Head/C-Spine Posture Forward Head T-Spine Posture Increased Kyphosis L-Spine Posture Increased Lordosis Shoulder Posture (L) Rounded,(R) Rounded Scapula Posture (L) Protracted,(R) Protracted Arm Posture (L) Internally Rotated,(R) Internally Rotated Pelvis Posture Anteriorly Tilted Weight Distribution Balanced Hip Posture (L) Externally Rotated,(R) Externally Rotated Knee Posture (L) Genu Valgus,(R) Genu Valgus Patellar Posture (L) Superior,(R) Superior,(L) Laterally Tilted,(R) Laterally Tilted Ankle/Foot Posture (L) Pronated,(R) Pronated Palpation Assessment Location R knee Palpation Location patella, fibula, joint line, tibia, medial and lateral condyles Palpation Findings Tenderness Palpation Details Tenderness along superomedial patella, worse after resisted extension; minimally tender to palpation. No other tenderness noted along patella , joint lines, tibia, femoral condyles. hips not tender to palpation L knee Palpation Location patella, fibula, joint line, tibia, medial and lateral condyles Palpation Findings Tenderness Palpation Details Tenderness along superomedial patella, worse after resisted extension; minimally tender to palpation. No other tenderness noted along patella , joint lines, tibia, femoral condyles. hips not tender to palpation Skin Assessment Other Assessments Skin Assessment Comments No swelling noted in B knees PT-OP-K Range of Motion Start: 04/17/23 18:16 Freq: Status: Active Protocol: Document 04/18/23 08:14 NM (Rec: 04/18/23 09:44 NM [id number]) Hip Goniometric Range of Motion Hip right Flexion w/Knee Flexed 115 Extension 10 Abduction 20 Internal Rotation 17 External Rotation 30 Comments Pain with AROM hip IR Left Flexion w/Knee Flexed 115 Extension 10 Abduction 20 Internal Rotation 15 External Rotation 30 Hip ROM Limitations Hip ROM Limitations Soft Tissue Tightness Comments hip internal rotation Knee Goniometric Range of Motion Knee Right Flexion Active (degrees) 145 Flexion Passive (degrees) 147 Extension Active (degrees) 0 Hyper-Extension Active 4 Comments No pain with active flex/ext translation Left Flexion Active (degrees) 140 Flexion Passive (degrees) 145 Extension Active (degrees) 0 Hyper-Extension Active 5 Comments No pain with active flex/ext translation Ankle and Foot Goniometric Range of Motion Ankle and Foot Right Testing Position Sitting Dorsiflexion with Knee Flexed 10 Plantarflexion 40 Left Testing Position Sitting Dorsiflexion with Knee Flexed 10 Plantarflexion 50 PT-OP-L Special Tests Start: 04/17/23 18:16 Freq: Status: Active Protocol: Document 04/18/23 08:14 NM (Rec: 04/18/23 09:44 NM [id number]) Special Tests Hip Special Tests scour Test Results - Comments bilaterally Labrum Test Results - Comments anterior and posterior labral tests; bilaterally SITA Test Results - Comments decreased mobility but not painful; bilaterally FADIR Test Results - Comments bilaterally Knee Special Tests Patellar Grind Test Test Results + Marlin Test Test Results - Comments bilaterally Posterior Sag Test Results - Comments bilaterally Posterior Draw Test Results - Comments bilaterally George Test Results - Comments bilaterally Anterior Draw Test Results - Comments bilaterally Varus Test Results - Comments 0 and 30 deg; bilaterally Valgus Test Results - Comments 0 and 30 deg; bilaterally PT-OP-M Strength Start: 04/17/23 18:16 Freq: Status: Active Protocol: Document 04/18/23 08:14 NM (Rec: 04/18/23 09:44 NM [id number]) Hip Strength Hip Manual Muscle Testing Right Flexion (L2) 4- Good- Extension (S1) 4- Good- Abduction 4- Good- Adduction 4 Good External Rotation 4 Good Internal Rotation 4 Good Left Flexion (L2) 4- Good- Extension (S1) 4- Good- Abduction 4- Good- Adduction 4 Good External Rotation 4 Good Internal Rotation 4 Good Knee Strength Knee Manual Muscle Testing Right Flexion (S2) 4+ Good+ Extension (L3) 4+ Good+ Comments Pain with resisted extension Left Flexion (S2) 4+ Good+ Extension (L3) 4+ Good+ Comments Pain with resisted extension Ankle/Foot Strength Ankle and Foot Manual Muscle Testing Right Dorsiflexion (L4) 4+ Good+ Plantarflexion (S1) 4+ Good+ Comments Plantarflexion not tested with heel raises Left Dorsiflexion (L4) 4+ Good+ Plantarflexion (S1) 4+ Good+ Comments Plantarflexion not tested with heel raises PT-OP-Q Treatments Start: 04/17/23 18:16 Freq: Status: Active Protocol: Document 05/01/23 08:01 AB (Rec: 05/01/23 09:28 AB [id number]) Therapeutic Exercises Sidelying Exercises hip abuction Side bilateral Equipment Used teal level 2 band on second set Reps/Minutes 2X15 Sitting Exercises seated hip abduction with band Equipment Used light green level 3 band Reps/Minutes one minute hold X 1 AROM DF Side bilateral Reps/Minutes one minute post calf stretches Comments Verbal cues Standing Exercises calf stretches on step Side bilateral Reps/Minutes 60 seconds with knees straight 60 seconds with knees bent standing clams Standing Exercise Name reviewed HEP Side bilateral Resistance lvl 3 tb around thighs Equipment Used foot on wall, isometric, slight squat on stance LE Reps/Minutes X10 each LE Comments cued for form, reports no knee pain Therapeutic Activity Therapeutic Activity descending and ascending stairs Name reciprocal pattern without rails Reps/Minutes 4 steps X 2 post training X 4 steps to assess Comments Verbal and visual cues for descending stairs with a less quad dominant pattern Manual Therapy Treatment Soft Tissue Mobilization peripatellar area bilateral knees Mobilization Type Cross-Friction,Rolling Intensity/Depth Moderate Body Position Hooklying Comments Monitored for pain Joint Mobilizations L knee Joint patellar Direction Med/lat, Sup/inf, CW CCW Grade III Body Position Supine Reps/Duration 1x15 ea Comments Bob for pain R knee Joint patellar Direction med/lat, sup/inf, CW and CCW Grade III Body Position Supine Reps/Duration 1x15 ea Comments Bob for pain PT-OP-T Assessment and Plan Start: 04/17/23 18:16 Freq: Status: Active Protocol: Document 05/01/23 08:01 AB (Rec: 05/01/23 09:28 AB [id number]) Physical Therapy Assessment Goals Four Impairment strength Impairment B hip flex, ext, abd 4-/5 MMT Short Term Goal (STG) Pt will increase B hip flex, ext, and abd MMT to at least 4 /5 in order to demonstrate improved strength required for squats, stairs, and other functional activities STG Duration 5 weeks Bilingual Medical Assistant Goal (LTG) Pt will increase B hip flex, ext, and abd MMT to at least 4 +/5 in order to demonstrate improved strength required for squats, stairs, and other functional activities LTG Duration 10 weeks Three Impairment HEP Impairment not performing HEP or daily exercise program Short Term Goal (STG) Pt will report compliance with HEP at least 3x/wk in order to demonstrate return to activity and to maximize gains made during PT sessions STG Duration 5 weeks [facility] Goal (LTG) Pt will report at least 50% return to prior level of workouts 3x/wk in order to demonstrate return to activity , improved pain management, and maintenance program for independent exercise. LTG Duration 10 weeks Two Impairment function Impairment 10 B squats painful with excess knee valgus and pronation Short Term Goal (STG) Pt will perform at least 10 bilateral squats without pain or compensation in order to demonstrate improved quad control and glute activation for functional activities. STG Duration 5 weeks Bilingual Medical Assistant Goal (LTG) Pt will be able to perform at least 10 single leg squats without pain or compensation in order to demonstrate improved quad control and glute activation for functional activities. LTG Duration 10 weeks One Impairment function Short Term Goal (STG) Pt will perform at least 10 eccentric step downs without compensation and reports of <3 /10 B knee pain in order to demonstrate improved hip strength and quad control STG Duration 5 weeks [facility] Goal (LTG) Pt will be able to perform at least 12 stairs without reports of increased pain in order to demonstrate improved hip strength and quad control LTG Duration 10 weeks Assessment Summary Assessment Michael was able to descend stairs using a reciprocal pattern without rails with a less quad dominant pattern and reports of decreased knee pain. Physical Therapy Plan Frequency and Duration Frequency of Treatment 1-2x/wk Duration of treatment (weeks) 10 Plan of Care Start Date 04/18/23 Plan of Care End Date 06/28/23 Next Visit Focus/Plan Next Note Type Treatment Note Next Visit Plan Next tx: LAQ/quad isometrics in midrange (progress as tolerated)- should be pain free. progress RDL if able. Progress hip abd/glute strengthening (trial SL hip abd if not do well with steps/ clams). Roll out TFL/glute ( ITB) and strengthen. Progress squat with good mechanics and eventually progress to leg press. quad isometrics, hip strengthening, body mechanics training Manual prn: STM, patellar mobilizations, Possibly taping if cleared by PT.
--- NOTE | 2023-05-03 11:56 | PT.OTN ---
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 Pt also has B wrist pain, R hip, and low back pain; reports pain not consistent. Pt doesn't have a specific known onset or mechanism of injury for knee pain, but believes that he was performing strenous workouts in the past which likely contributed (e.g. heavy weight lifting including squats, deadlift). Reports has not improved over time. Currently, limiting activity due to discomfort. No reports of instability, locking, clicking . No hx of knee injuries, surgeries. No hx hip, ankle, or back injuries. Family hx of RA (mother, onset 40's); no known inflammatory disease. Pain does not feel like it's moving around in knee. Reports that he is able to push through pain without difficulty, but states that it's annoying. Prior Treatments and Tests No imaging, previous PT Prior Functional Status Baseline Function- ADL's Independent Baseline Function- Mobility Independent Baseline Function- Recreation/Hobbies Exercise/weight lifting 5x/wk (combo leg, arm, back days), running as exercise prn Current Functional Impairments (Reported) Functional Limitations- Recreation/ currently limiting physical Hobbies activity unless necessary for work PT-OP-C Subjective Start: 04/17/23 18:16 Freq: Status: Active Protocol: Document 05/03/23 08:02 AB (Rec: 05/03/23 09:01 AB [id number]) OP-PT Subjective Patient Comments Patient Comments Patient reports knees are hurting a little more, unable to ascertain cause. PT-OP-D Balance Start: 04/17/23 18:16 Freq: Status: Active Protocol: Document 04/18/23 08:14 NM (Rec: 04/18/23 09:44 NM [id number]) Balance Tests Single Limb Standing Single Limb- Right 10 sec, increased sway, no pain Single Limb- Left 10 sec, increased sway, no pain Tandem Tandem Standing 5 sec EC, 20 sec EO before LOB PT-OP-E Functional Tests Start: 04/17/23 18:16 Freq: Status: Active Protocol: Document 04/18/23 08:14 NM (Rec: 04/18/23 09:44 NM [id number]) Functional Tests Squat Test Score 10 Comments up and down pain, valgus, dec DF, Single Leg Squat Test Score 1 ea Comment deep pistol; valgus B, dec DF Other Eccentric step down Name of Test 4 step Comment B knee valgus, pronation, trendelenburg Hop Name of Test double leg hop; single leg hop Score pain with landing double hop; single leg hop pain with ascend/landing Comment lands with valgus on all attempts, pronation at ankle, hip drop PT-OP-F Manual Assessment Start: 04/17/23 18:16 Freq: Status: Active Protocol: Document 04/18/23 08:14 NM (Rec: 04/18/23 09:44 NM [id number]) Manual Assessments Soft Tissue Assessment Soft Tissue Mobility Assessment Decreased hamstring length bilaterally; not formally measured Joint Mobility Assessment Joint Mobility Assessment No B knee instability, no pain with tibial IR/ER. Decreased B hip AROM and PROM. Slight lateral patellar tracking with short and long sitting knee ext, decreased superior translation in sitting. B knee crepitus with repeated knee flex/ext PT-OP-G Mobility & Gait Start: 04/17/23 18:16 Freq: Status: Active Protocol: Document 04/18/23 08:14 NM (Rec: 04/18/23 09:44 NM [id number]) OP Gait Assessment Gait Gait Assistance Required: Independent Distance (Feet) 200 Assistive Devices Assistive Device None Comments Gait Comments Narrow stance. Increased pronation with gait, B foot ER in stance and during swing. Early toe off. Stair Climbing Evaluation Evaluation Level of Assist On Stairs Independent Devices Stair Climbing Assistive Devices None Technique/Endurance Stair Climbing Direction Ascend and Descend Stair Climbing Technique Step Over Step Number of Steps Climbed 4 Stair Climbing Set # Repetitions (reps) 1 Comments Stair Climbing Comments Anterior knee pain with descent, knee valgus and foot pronation bilaterally PT-OP-J Posture/Palpation/Skin Start: 04/17/23 18:16 Freq: Status: Active Protocol: Document 04/18/23 08:14 NM (Rec: 04/18/23 09:44 NM [id number]) Posture Evaluation Position Standing Evaluation View posterior, lateral Head/C-Spine Posture Forward Head T-Spine Posture Increased Kyphosis L-Spine Posture Increased Lordosis Shoulder Posture (L) Rounded,(R) Rounded Scapula Posture (L) Protracted,(R) Protracted Arm Posture (L) Internally Rotated,(R) Internally Rotated Pelvis Posture Anteriorly Tilted Weight Distribution Balanced Hip Posture (L) Externally Rotated,(R) Externally Rotated Knee Posture (L) Genu Valgus,(R) Genu Valgus Patellar Posture (L) Superior,(R) Superior,(L) Laterally Tilted,(R) Laterally Tilted Ankle/Foot Posture (L) Pronated,(R) Pronated Palpation Assessment Location R knee Palpation Location patella, fibula, joint line, tibia, medial and lateral condyles Palpation Findings Tenderness Palpation Details Tenderness along superomedial patella, worse after resisted extension; minimally tender to palpation. No other tenderness noted along patella , joint lines, tibia, femoral condyles. hips not tender to palpation L knee Palpation Location patella, fibula, joint line, tibia, medial and lateral condyles Palpation Findings Tenderness Palpation Details Tenderness along superomedial patella, worse after resisted extension; minimally tender to palpation. No other tenderness noted along patella , joint lines, tibia, femoral condyles. hips not tender to palpation Skin Assessment Other Assessments Skin Assessment Comments No swelling noted in B knees PT-OP-K Range of Motion Start: 04/17/23 18:16 Freq: Status: Active Protocol: Document 04/18/23 08:14 NM (Rec: 04/18/23 09:44 NM [id number]) Hip Goniometric Range of Motion Hip right Flexion w/Knee Flexed 115 Extension 10 Abduction 20 Internal Rotation 17 External Rotation 30 Comments Pain with AROM hip IR Left Flexion w/Knee Flexed 115 Extension 10 Abduction 20 Internal Rotation 15 External Rotation 30 Hip ROM Limitations Hip ROM Limitations Soft Tissue Tightness Comments hip internal rotation Knee Goniometric Range of Motion Knee Right Flexion Active (degrees) 145 Flexion Passive (degrees) 147 Extension Active (degrees) 0 Hyper-Extension Active 4 Comments No pain with active flex/ext translation Left Flexion Active (degrees) 140 Flexion Passive (degrees) 145 Extension Active (degrees) 0 Hyper-Extension Active 5 Comments No pain with active flex/ext translation Ankle and Foot Goniometric Range of Motion Ankle and Foot Right Testing Position Sitting Dorsiflexion with Knee Flexed 10 Plantarflexion 40 Left Testing Position Sitting Dorsiflexion with Knee Flexed 10 Plantarflexion 50 PT-OP-L Special Tests Start: 04/17/23 18:16 Freq: Status: Active Protocol: Document 04/18/23 08:14 NM (Rec: 04/18/23 09:44 NM [id number]) Special Tests Hip Special Tests scour Test Results - Comments bilaterally Labrum Test Results - Comments anterior and posterior labral tests; bilaterally SITA Test Results - Comments decreased mobility but not painful; bilaterally FADIR Test Results - Comments bilaterally Knee Special Tests Patellar Grind Test Test Results + Marlin Test Test Results - Comments bilaterally Posterior Sag Test Results - Comments bilaterally Posterior Draw Test Results - Comments bilaterally George Test Results - Comments bilaterally Anterior Draw Test Results - Comments bilaterally Varus Test Results - Comments 0 and 30 deg; bilaterally Valgus Test Results - Comments 0 and 30 deg; bilaterally PT-OP-M Strength Start: 04/17/23 18:16 Freq: Status: Active Protocol: Document 04/18/23 08:14 NM (Rec: 04/18/23 09:44 NM [id number]) Hip Strength Hip Manual Muscle Testing Right Flexion (L2) 4- Good- Extension (S1) 4- Good- Abduction 4- Good- Adduction 4 Good External Rotation 4 Good Internal Rotation 4 Good Left Flexion (L2) 4- Good- Extension (S1) 4- Good- Abduction 4- Good- Adduction 4 Good External Rotation 4 Good Internal Rotation 4 Good Knee Strength Knee Manual Muscle Testing Right Flexion (S2) 4+ Good+ Extension (L3) 4+ Good+ Comments Pain with resisted extension Left Flexion (S2) 4+ Good+ Extension (L3) 4+ Good+ Comments Pain with resisted extension Ankle/Foot Strength Ankle and Foot Manual Muscle Testing Right Dorsiflexion (L4) 4+ Good+ Plantarflexion (S1) 4+ Good+ Comments Plantarflexion not tested with heel raises Left Dorsiflexion (L4) 4+ Good+ Plantarflexion (S1) 4+ Good+ Comments Plantarflexion not tested with heel raises PT-OP-Q Treatments Start: 04/17/23 18:16 Freq: Status: Active Protocol: Document 05/03/23 08:02 AB (Rec: 05/03/23 09:01 [id number]) Therapeutic Exercises Standing Exercises glute med isometric Standing Exercise Name standing at wall Reps/Minutes one minute X 1 each LE Comments verbal and visual cues calf stretches on step Side bilateral Reps/Minutes 60 sec bent and 60 sec straight X 2 SL RDL Side bilateral Reps/Minutes x10 Comments verbal and visual cues wall squats Resistance lvl 3 tb around thighs Reps/Minutes 2/x one minute then X10 without hold ball behind back Comments cued pain free depth, no >90 deg; glute activation, no knee >toe Manual Therapy Treatment Soft Tissue Mobilization peripatellar area bilateral knees Mobilization Type Cross-Friction,Rolling Intensity/Depth Moderate Body Position Hooklying Comments Monitored for pain Joint Mobilizations L knee Joint patellar Direction Med/lat, Sup/inf, CW CCW Grade III Body Position Supine Reps/Duration 1x15 ea Comments Bob for pain R knee Joint patellar Direction med/lat, sup/inf, CW and CCW Grade III Body Position Supine Reps/Duration 1x15 ea Comments Bob for pain Taping bilateral knees Body Location Leukotape and cover roll Treatment Focus Unload fat pat, and increase tracking medially Type of Tape Lekotape and cover roll Skin Inspection WNL Comments Reports less knee pain ascending and descending stairs post taping. Patient ed to remove tape in 3-5 days or immediately if skin irritation occurs. PT-OP-T Assessment and Plan Start: 04/17/23 18:16 Freq: Status: Active Protocol: Document 05/03/23 08:02 AB (Rec: 05/03/23 09:01 [id number]) Physical Therapy Assessment Goals Four Impairment strength Impairment B hip flex, ext, abd 4-/5 MMT Short Term Goal (STG) Pt will increase B hip flex, ext, and abd MMT to at least 4 /5 in order to demonstrate improved strength required for squats, stairs, and other functional activities STG Duration 5 weeks Account Developer Goal (LTG) Pt will increase B hip flex, ext, and abd MMT to at least 4 +/5 in order to demonstrate improved strength required for squats, stairs, and other functional activities LTG Duration 10 weeks Three Impairment HEP Impairment not performing HEP or daily exercise program Short Term Goal (STG) Pt will report compliance with HEP at least 3x/wk in order to demonstrate return to activity and to maximize gains made during PT sessions STG Duration 5 weeks Care Home Goal (LTG) Pt will report at least 50% return to prior level of workouts 3x/wk in order to demonstrate return to activity , improved pain management, and maintenance program for independent exercise. LTG Duration 10 weeks Two Impairment function Impairment 10 B squats painful with excess knee valgus and pronation Short Term Goal (STG) Pt will perform at least 10 bilateral squats without pain or compensation in order to demonstrate improved quad control and glute activation for functional activities. STG Duration 5 weeks Account Developer Goal (LTG) Pt will be able to perform at least 10 single leg squats without pain or compensation in order to demonstrate improved quad control and glute activation for functional activities. LTG Duration 10 weeks One Impairment function Short Term Goal (STG) Pt will perform at least 10 eccentric step downs without compensation and reports of <3 /10 B knee pain in order to demonstrate improved hip strength and quad control STG Duration 5 weeks Account Developer Goal (LTG) Pt will be able to perform at least 12 stairs without reports of increased pain in order to demonstrate improved hip strength and quad control LTG Duration 10 weeks Assessment Summary Assessment Michael reports an increase in soreness end of session bilateral knees. Physical Therapy Plan Frequency and Duration Frequency of Treatment 1-2x/wk Duration of treatment (weeks) 10 Plan of Care Start Date 04/18/23 Plan of Care End Date 06/28/23 Next Visit Focus/Plan Next Note Type Treatment Note Next Visit Plan wall squats with ball vs squat with band to HEP, lift and SL lift review.Next tx: LAQ/quad isometrics in midrange (progress as tolerated)- should be pain free. Progress hip abd/glute strengthening/assess sparkle to standing glute med isomet ( trial SL hip abd if not do well with steps/clams). Roll out TFL/glute (ITB) and strengthen. Progress squat with good mechanics and eventually progress to leg press. quad isometrics, hip strengthening, body mechanics training/ lift vs single leg deady lift and lunge Manual prn: STM, patellar mobilizations,
--- NOTE | 2023-05-20 15:57 | PT.OTN ---
Current Diagnoses Pain in unspecified knee (05/20/23) Other abnormalities of gait and mobility (05/20/23) Weakness (05/20/23) Physical Therapy Treatment Note PT-OP-A Visit Information Start: 04/17/23 18:16 Freq: Status: Active Protocol: Document 05/20/23 12:48 AB (Rec: 05/20/23 15:56 AB [id number]) Out-Patient Physical Therapy Visit Information Visit Information Visit Type Treatment Note Visit Note Access Code: [email or web address] Visit Start Time 13:54 Visit Stop Time 14:30 Visit Number 6/ Number of PELLETIZER Visits 4 Evaluation Information Evaluation Date 04/18/23 PT-OP-B Current Condition Start: 04/17/23 18:16 Freq: Status: Active Protocol: Document 04/18/23 08:14 NM (Rec: 04/18/23 09:44 NM [id number]) Current Condition History of Current Condition Onset Date 2 years Current Complaints knee pain History of Current Condition Pt presents with B knee pain. Pt also has B wrist pain, R hip, and low back pain; reports pain not consistent. Pt doesn't have a specific known onset or mechanism of injury for knee pain, but believes that he was performing strenous workouts in the past which likely contributed (e.g. heavy weight lifting including squats, deadlift). Reports has not improved over time. Currently, limiting activity due to discomfort. No reports of instability, locking, clicking . No hx of knee injuries, surgeries. No hx hip, ankle, or back injuries. Family hx of RA (mother, onset 40's); no known inflammatory disease. Pain does not feel like it's moving around in knee. Reports that he is able to push through pain without difficulty, but states that it's annoying. Prior Treatments and Tests No imaging, previous PT Prior Functional Status Baseline Function- ADL's Independent Baseline Function- Mobility Independent Baseline Function- Recreation/Hobbies Exercise/weight lifting 5x/wk (combo leg, arm, back days), running as exercise prn Current Functional Impairments (Reported) Functional Limitations- Recreation/ currently limiting physical Hobbies activity unless necessary for work PT-OP-C Subjective Start: 04/17/23 18:16 Freq: Status: Active Protocol: Document 05/20/23 12:48 AB (Rec: 05/20/23 15:56 AB [id number]) OP-PT Subjective Patient Comments Patient Comments Patient reports the tape helped, but the pulling on hair increased pain when trying to sleep and he had to pull it off. Patient reports the knee is the same. Patient reports he did the exercises good first week then got sick, has been back to exercises 2 day. PT-OP-D Balance Start: 04/17/23 18:16 Freq: Status: Active Protocol: Document 04/18/23 08:14 NM (Rec: 04/18/23 09:44 NM [id number]) Balance Tests Single Limb Standing Single Limb- Right 10 sec, increased sway, no pain Single Limb- Left 10 sec, increased sway, no pain Tandem Tandem Standing 5 sec EC, 20 sec EO before LOB PT-OP-E Functional Tests Start: 04/17/23 18:16 Freq: Status: Active Protocol: Document 04/18/23 08:14 NM (Rec: 04/18/23 09:44 NM [id number]) Functional Tests Squat Test Score 10 Comments up and down pain, valgus, dec DF, Single Leg Squat Test Score 1 ea Comment deep pistol; valgus B, dec DF Other Eccentric step down Name of Test 4 step Comment B knee valgus, pronation, trendelenburg Hop Name of Test double leg hop; single leg hop Score pain with landing double hop; single leg hop pain with ascend/landing Comment lands with valgus on all attempts, pronation at ankle, hip drop PT-OP-F Manual Assessment Start: 04/17/23 18:16 Freq: Status: Active Protocol: Document 04/18/23 08:14 NM (Rec: 04/18/23 09:44 NM [id number]) Manual Assessments Soft Tissue Assessment Soft Tissue Mobility Assessment Decreased hamstring length bilaterally; not formally measured Joint Mobility Assessment Joint Mobility Assessment No B knee instability, no pain with tibial IR/ER. Decreased B hip AROM and PROM. Slight lateral patellar tracking with short and long sitting knee ext, decreased superior translation in sitting. B knee crepitus with repeated knee flex/ext PT-OP-G Mobility & Gait Start: 04/17/23 18:16 Freq: Status: Active Protocol: Document 04/18/23 08:14 NM (Rec: 04/18/23 09:44 NM [id number]) OP Gait Assessment Gait Gait Assistance Required: Independent Distance (Feet) 200 Assistive Devices Assistive Device None Comments Gait Comments Narrow stance. Increased pronation with gait, B foot ER in stance and during swing. Early toe off. Stair Climbing Evaluation Evaluation Level of Assist On Stairs Independent Devices Stair Climbing Assistive Devices None Technique/Endurance Stair Climbing Direction Ascend and Descend Stair Climbing Technique Step Over Step Number of Steps Climbed 4 Stair Climbing Set # Repetitions (reps) 1 Comments Stair Climbing Comments Anterior knee pain with descent, knee valgus and foot pronation bilaterally PT-OP-J Posture/Palpation/Skin Start: 04/17/23 18:16 Freq: Status: Active Protocol: Document 04/18/23 08:14 NM (Rec: 04/18/23 09:44 NM [id number]) Posture Evaluation Position Standing Evaluation View posterior, lateral Head/C-Spine Posture Forward Head T-Spine Posture Increased Kyphosis L-Spine Posture Increased Lordosis Shoulder Posture (L) Rounded,(R) Rounded Scapula Posture (L) Protracted,(R) Protracted Arm Posture (L) Internally Rotated,(R) Internally Rotated Pelvis Posture Anteriorly Tilted Weight Distribution Balanced Hip Posture (L) Externally Rotated,(R) Externally Rotated Knee Posture (L) Genu Valgus,(R) Genu Valgus Patellar Posture (L) Superior,(R) Superior,(L) Laterally Tilted,(R) Laterally Tilted Ankle/Foot Posture (L) Pronated,(R) Pronated Palpation Assessment Location R knee Palpation Location patella, fibula, joint line, tibia, medial and lateral condyles Palpation Findings Tenderness Palpation Details Tenderness along superomedial patella, worse after resisted extension; minimally tender to palpation. No other tenderness noted along patella , joint lines, tibia, femoral condyles. hips not tender to palpation L knee Palpation Location patella, fibula, joint line, tibia, medial and lateral condyles Palpation Findings Tenderness Palpation Details Tenderness along superomedial patella, worse after resisted extension; minimally tender to palpation. No other tenderness noted along patella , joint lines, tibia, femoral condyles. hips not tender to palpation Skin Assessment Other Assessments Skin Assessment Comments No swelling noted in B knees PT-OP-K Range of Motion Start: 04/17/23 18:16 Freq: Status: Active Protocol: Document 04/18/23 08:14 NM (Rec: 04/18/23 09:44 NM [id number]) Hip Goniometric Range of Motion Hip right Flexion w/Knee Flexed 115 Extension 10 Abduction 20 Internal Rotation 17 External Rotation 30 Comments Pain with AROM hip IR Left Flexion w/Knee Flexed 115 Extension 10 Abduction 20 Internal Rotation 15 External Rotation 30 Hip ROM Limitations Hip ROM Limitations Soft Tissue Tightness Comments hip internal rotation Knee Goniometric Range of Motion Knee Right Flexion Active (degrees) 145 Flexion Passive (degrees) 147 Extension Active (degrees) 0 Hyper-Extension Active 4 Comments No pain with active flex/ext translation Left Flexion Active (degrees) 140 Flexion Passive (degrees) 145 Extension Active (degrees) 0 Hyper-Extension Active 5 Comments No pain with active flex/ext translation Ankle and Foot Goniometric Range of Motion Ankle and Foot Right Testing Position Sitting Dorsiflexion with Knee Flexed 10 Plantarflexion 40 Left Testing Position Sitting Dorsiflexion with Knee Flexed 10 Plantarflexion 50 PT-OP-L Special Tests Start: 04/17/23 18:16 Freq: Status: Active Protocol: Document 04/18/23 08:14 NM (Rec: 04/18/23 09:44 NM [id number]) Special Tests Hip Special Tests scour Test Results - Comments bilaterally Labrum Test Results - Comments anterior and posterior labral tests; bilaterally SITA Test Results - Comments decreased mobility but not painful; bilaterally FADIR Test Results - Comments bilaterally Knee Special Tests Patellar Grind Test Test Results + Marlin Test Test Results - Comments bilaterally Posterior Sag Test Results - Comments bilaterally Posterior Draw Test Results - Comments bilaterally George Test Results - Comments bilaterally Anterior Draw Test Results - Comments bilaterally Varus Test Results - Comments 0 and 30 deg; bilaterally Valgus Test Results - Comments 0 and 30 deg; bilaterally PT-OP-M Strength Start: 04/17/23 18:16 Freq: Status: Active Protocol: Document 04/18/23 08:14 NM (Rec: 04/18/23 09:44 NM [id number]) Hip Strength Hip Manual Muscle Testing Right Flexion (L2) 4- Good- Extension (S1) 4- Good- Abduction 4- Good- Adduction 4 Good External Rotation 4 Good Internal Rotation 4 Good Left Flexion (L2) 4- Good- Extension (S1) 4- Good- Abduction 4- Good- Adduction 4 Good External Rotation 4 Good Internal Rotation 4 Good Knee Strength Knee Manual Muscle Testing Right Flexion (S2) 4+ Good+ Extension (L3) 4+ Good+ Comments Pain with resisted extension Left Flexion (S2) 4+ Good+ Extension (L3) 4+ Good+ Comments Pain with resisted extension Ankle/Foot Strength Ankle and Foot Manual Muscle Testing Right Dorsiflexion (L4) 4+ Good+ Plantarflexion (S1) 4+ Good+ Comments Plantarflexion not tested with heel raises Left Dorsiflexion (L4) 4+ Good+ Plantarflexion (S1) 4+ Good+ Comments Plantarflexion not tested with heel raises PT-OP-Q Treatments Start: 04/17/23 18:16 Freq: Status: Active Protocol: Document 05/20/23 12:48 AB (Rec: 05/20/23 15:56 AB [id number]) Therapeutic Exercises Standing Exercises lunge Reps/Minutes 5X5 Comments Verbal and visual cues for hip hinge, monitored for pain lift Standing Exercise Name without weight with weight with band Equipment Used X10 with lev 3 band under feet , X10 without weight X 10 with 10 lb Comments Initiated to floor, but then limited to 12inch from floor for reps/for form single leg lift Standing Exercise Name to chair height and to floor Reps/Minutes X15 to chair w/o weight X 10 with 5 lb to chair and to floor glute med isometric Standing Exercise Name standing at wall Reps/Minutes one minute X 1 each LE Comments verbal and visual cues Manual Therapy Treatment Soft Tissue Mobilization peripatellar area bilateral knees Body Location peripatellar and quad bilateral knees Mobilization Type Cross-Friction,Rolling Intensity/Depth Moderate Body Position Hooklying Comments Monitored for pain Joint Mobilizations L knee Joint patellar Direction Med/lat, Sup/inf, CW CCW Grade III Body Position Supine Reps/Duration 1x8 ea Comments Bob for pain R knee Joint patellar Direction med/lat, sup/inf, CW and CCW Grade III Body Position Supine Reps/Duration 1x8 ea Comments Bob for pain PT-OP-T Assessment and Plan Start: 04/17/23 18:16 Freq: Status: Active Protocol: Document 05/20/23 12:48 AB (Rec: 05/20/23 15:56 AB [id number]) Physical Therapy Assessment Goals Four Impairment strength Impairment B hip flex, ext, abd 4-/5 MMT Short Term Goal (STG) Pt will increase B hip flex, ext, and abd MMT to at least 4 /5 in order to demonstrate improved strength required for squats, stairs, and other functional activities STG Duration 5 weeks Blunger Goal (LTG) Pt will increase B hip flex, ext, and abd MMT to at least 4 +/5 in order to demonstrate improved strength required for squats, stairs, and other functional activities LTG Duration 10 weeks Three Impairment HEP Impairment not performing HEP or daily exercise program Short Term Goal (STG) Pt will report compliance with HEP at least 3x/wk in order to demonstrate return to activity and to maximize gains made during PT sessions STG Duration 5 weeks Blunger Goal (LTG) Pt will report at least 50% return to prior level of workouts 3x/wk in order to demonstrate return to activity , improved pain management, and maintenance program for independent exercise. LTG Duration 10 weeks Two Impairment function Impairment 10 B squats painful with excess knee valgus and pronation Short Term Goal (STG) Pt will perform at least 10 bilateral squats without pain or compensation in order to demonstrate improved quad control and glute activation for functional activities. STG Duration 5 weeks Mcfp Goal (LTG) Pt will be able to perform at least 10 single leg squats without pain or compensation in order to demonstrate improved quad control and glute activation for functional activities. LTG Duration 10 weeks One Impairment function Short Term Goal (STG) Pt will perform at least 10 eccentric step downs without compensation and reports of <3 /10 B knee pain in order to demonstrate improved hip strength and quad control STG Duration 5 weeks Blunger Goal (LTG) Pt will be able to perform at least 12 stairs without reports of increased pain in order to demonstrate improved hip strength and quad control LTG Duration 10 weeks Assessment Summary Assessment Michael reports no increased pain with lunges and was able to perform lunges, with good hip hinge and lift with good hip hinge to ~12 inches from the floor. Functional mobility continues to be limited by pain, and patient will benefit from progression of strengthening exercises. Session limited due to patient arriving late Physical Therapy Plan Frequency and Duration Frequency of Treatment 1-2x/wk Duration of treatment (weeks) 10 Plan of Care Start Date 04/18/23 Plan of Care End Date 06/28/23 Next Visit Focus/Plan Next Note Type Treatment Note Next Visit Plan wall squats with ball vs squat with band to HEP, Next tx: LAQ/quad isometrics in midrange (progress as tolerated)- should be pain free. Progress hip abd/glute strengthening/(trial/review SL hip abd if not do well with steps/clams). Roll out TFL/ glute (ITB) and strengthen. Progress squat with good mechanics and eventually progress to leg press. Possibly trial of mini step up 2 or 4 inch step without pain , quad isometrics, hip strengthening, Manual prn: STM, patellar mobilizations,
--- NOTE | 2023-05-22 11:15 | PT.OTN ---
Current Diagnoses Pain in unspecified knee (05/22/23) Other abnormalities of gait and mobility (05/22/23) Weakness (05/22/23) Physical Therapy Treatment Note PT-OP-A Visit Information Start: 04/17/23 18:16 Freq: Status: Active Protocol: Document 05/22/23 08:18 NM (Rec: 05/22/23 09:05 NM [id number]) Out-Patient Physical Therapy Visit Information Visit Information Visit Type Progress Note Visit Start Time 08:18 Visit Stop Time 09:00 Visit Number 7 PT-OP-B Current Condition Start: 04/17/23 18:16 Freq: Status: Active Protocol: Document 04/18/23 08:14 NM (Rec: 04/18/23 09:44 NM [id number]) Current Condition History of Current Condition Onset Date 2 years Current Complaints knee pain History of Current Condition Pt presents with B knee pain. Pt also has B wrist pain, R hip, and low back pain; reports pain not consistent. Pt doesn't have a specific known onset or mechanism of injury for knee pain, but believes that he was performing strenous workouts in the past which likely contributed (e.g. heavy weight lifting including squats, deadlift). Reports has not improved over time. Currently, limiting activity due to discomfort. No reports of instability, locking, clicking . No hx of knee injuries, surgeries. No hx hip, ankle, or back injuries. Family hx of RA (mother, onset 40's); no known inflammatory disease. Pain does not feel like it's moving around in knee. Reports that he is able to push through pain without difficulty, but states that it's annoying. Prior Treatments and Tests No imaging, previous PT Prior Functional Status Baseline Function- ADL's Independent Baseline Function- Mobility Independent Baseline Function- Recreation/Hobbies Exercise/weight lifting 5x/wk (combo leg, arm, back days), running as exercise prn Current Functional Impairments (Reported) Functional Limitations- Recreation/ currently limiting physical Hobbies activity unless necessary for work PT-OP-C Subjective Start: 04/17/23 18:16 Freq: Status: Active Protocol: Document 05/22/23 08:18 NM (Rec: 05/22/23 09:05 NM [id number]) OP-PT Subjective Patient Comments Patient Comments Pt reports no change in pain symptoms, 2/10 in B knees. He states that he continues to have pain squats, stairs. No pain with walking or standing. PT-OP-D Balance Start: 04/17/23 18:16 Freq: Status: Active Protocol: Document 04/18/23 08:14 NM (Rec: 04/18/23 09:44 NM [id number]) Balance Tests Single Limb Standing Single Limb- Right 10 sec, increased sway, no pain Single Limb- Left 10 sec, increased sway, no pain Tandem Tandem Standing 5 sec EC, 20 sec EO before LOB PT-OP-E Functional Tests Start: 04/17/23 18:16 Freq: Status: Active Protocol: Document 04/18/23 08:14 NM (Rec: 04/18/23 09:44 NM [id number]) Functional Tests Squat Test Score 10 Comments up and down pain, valgus, dec DF, Single Leg Squat Test Score 1 ea Comment deep pistol; valgus B, dec DF Other Eccentric step down Name of Test 4 step Comment B knee valgus, pronation, trendelenburg Hop Name of Test double leg hop; single leg hop Score pain with landing double hop; single leg hop pain with ascend/landing Comment lands with valgus on all attempts, pronation at ankle, hip drop PT-OP-F Manual Assessment Start: 04/17/23 18:16 Freq: Status: Active Protocol: Document 04/18/23 08:14 NM (Rec: 04/18/23 09:44 NM [id number]) Manual Assessments Soft Tissue Assessment Soft Tissue Mobility Assessment Decreased hamstring length bilaterally; not formally measured Joint Mobility Assessment Joint Mobility Assessment No B knee instability, no pain with tibial IR/ER. Decreased B hip AROM and PROM. Slight lateral patellar tracking with short and long sitting knee ext, decreased superior translation in sitting. B knee crepitus with repeated knee flex/ext PT-OP-G Mobility & Gait Start: 04/17/23 18:16 Freq: Status: Active Protocol: Document 04/18/23 08:14 NM (Rec: 04/18/23 09:44 NM [id number]) OP Gait Assessment Gait Gait Assistance Required: Independent Distance (Feet) 200 Assistive Devices Assistive Device None Comments Gait Comments Narrow stance. Increased pronation with gait, B foot ER in stance and during swing. Early toe off. Stair Climbing Evaluation Evaluation Level of Assist On Stairs Independent Devices Stair Climbing Assistive Devices None Technique/Endurance Stair Climbing Direction Ascend and Descend Stair Climbing Technique Step Over Step Number of Steps Climbed 4 Stair Climbing Set # Repetitions (reps) 1 Comments Stair Climbing Comments Anterior knee pain with descent, knee valgus and foot pronation bilaterally PT-OP-J Posture/Palpation/Skin Start: 04/17/23 18:16 Freq: Status: Active Protocol: Document 04/18/23 08:14 NM (Rec: 04/18/23 09:44 NM [id number]) Posture Evaluation Position Standing Evaluation View posterior, lateral Head/C-Spine Posture Forward Head T-Spine Posture Increased Kyphosis L-Spine Posture Increased Lordosis Shoulder Posture (L) Rounded,(R) Rounded Scapula Posture (L) Protracted,(R) Protracted Arm Posture (L) Internally Rotated,(R) Internally Rotated Pelvis Posture Anteriorly Tilted Weight Distribution Balanced Hip Posture (L) Externally Rotated,(R) Externally Rotated Knee Posture (L) Genu Valgus,(R) Genu Valgus Patellar Posture (L) Superior,(R) Superior,(L) Laterally Tilted,(R) Laterally Tilted Ankle/Foot Posture (L) Pronated,(R) Pronated Palpation Assessment Location R knee Palpation Location patella, fibula, joint line, tibia, medial and lateral condyles Palpation Findings Tenderness Palpation Details Tenderness along superomedial patella, worse after resisted extension; minimally tender to palpation. No other tenderness noted along patella , joint lines, tibia, femoral condyles. hips not tender to palpation L knee Palpation Location patella, fibula, joint line, tibia, medial and lateral condyles Palpation Findings Tenderness Palpation Details Tenderness along superomedial patella, worse after resisted extension; minimally tender to palpation. No other tenderness noted along patella , joint lines, tibia, femoral condyles. hips not tender to palpation Skin Assessment Other Assessments Skin Assessment Comments No swelling noted in B knees PT-OP-K Range of Motion Start: 04/17/23 18:16 Freq: Status: Active Protocol: Document 05/22/23 08:18 NM (Rec: 05/22/23 09:05 NM [id number]) Knee Goniometric Range of Motion Knee Right Flexion Active (degrees) 145 Flexion Passive (degrees) 147 Extension Active (degrees) 0 Hyper-Extension Active 4 Comments No pain with active flex/ext translation Left Flexion Active (degrees) 140 Flexion Passive (degrees) 145 Extension Active (degrees) 0 Hyper-Extension Active 5 Comments No pain with active flex/ext translation PT-OP-L Special Tests Start: 04/17/23 18:16 Freq: Status: Active Protocol: Document 04/18/23 08:14 NM (Rec: 04/18/23 09:44 NM [id number]) Special Tests Hip Special Tests scour Test Results - Comments bilaterally Labrum Test Results - Comments anterior and posterior labral tests; bilaterally SITA Test Results - Comments decreased mobility but not painful; bilaterally FADIR Test Results - Comments bilaterally Knee Special Tests Patellar Grind Test Test Results + Marlin Test Test Results - Comments bilaterally Posterior Sag Test Results - Comments bilaterally Posterior Draw Test Results - Comments bilaterally George Test Results - Comments bilaterally Anterior Draw Test Results - Comments bilaterally Varus Test Results - Comments 0 and 30 deg; bilaterally Valgus Test Results - Comments 0 and 30 deg; bilaterally PT-OP-M Strength Start: 04/17/23 18:16 Freq: Status: Active Protocol: Document 05/22/23 08:18 NM (Rec: 05/22/23 09:05 NM [id number]) Hip Strength Hip Manual Muscle Testing Right Flexion (L2) 4- Good- Extension (S1) 4- Good- Abduction 4- Good- Adduction 4 Good External Rotation 4 Good Internal Rotation 4 Good Comments 05/22/23: 4/5 hip flex, 4+/5 for ext/abd Left Flexion (L2) 4- Good- Extension (S1) 4- Good- Abduction 4- Good- Adduction 4 Good External Rotation 4 Good Internal Rotation 4 Good Comments 05/22/23: 4/5 hip flex/abd, 4+/ 5 ext Knee Strength Knee Manual Muscle Testing Right Flexion (S2) 4+ Good+ Extension (L3) 4+ Good+ Comments Pain with resisted extension 05/22/23: 4+/5 MMT, no pain Left Flexion (S2) 4+ Good+ Extension (L3) 4+ Good+ Comments Pain with resisted extension 05/22/23: no pain, 4+/5 PT-OP-Q Treatments Start: 04/17/23 18:16 Freq: Status: Active Protocol: Document 05/22/23 08:18 NM (Rec: 05/22/23 09:05 NM [id number]) Therapeutic Exercises Standing Exercises hip 3 way Standing Exercise Name flex/abd/ext Side bilateral Resistance lvl 3 tb around ankles Reps/Minutes 1x5 ea Comments cued hip hinge glute med isometric Standing Exercise Name standing at wall Reps/Minutes 1x30 ea Comments cued hip hinge for greater glute activation wall squats Standing Exercise Name squats to plinth Side bilateral Reps/Minutes 1x5, 1x10 Comments cued hip hinge, knees remain over ankle dorsiflexion mobilization Side bilateral Resistance AROM Equipment Used 2nd step Reps/Minutes 10x5 Comments pain free Manual Therapy Treatment Taping bilateral knees Body Location Leukotape and cover roll Treatment Focus Unload fat pat, and increase tracking medially Type of Tape Lekotape and cover roll Skin Inspection WNL Comments Reports less knee pain with eccentric step down post taping. Patient ed to remove tape in 3-5 days or immediately if skin irritation occurs. Self-Care/Home Management Treatment Education Patient Education Body Mechanics,Home Exercise Program,Joint Protection,Pain Management Other Education HEP: hip 3 way 5 minutes: Educated on PFPS with model, importance of using glutes to offload knees to limit pain during exercise. PT-OP-T Assessment and Plan Start: 04/17/23 18:16 Freq: Status: Active Protocol: Document 05/22/23 08:18 NM (Rec: 05/22/23 09:05 NM [id number]) Physical Therapy Assessment Goals Four Impairment strength Impairment B hip flex, ext, abd 4-/5 MMT Short Term Goal (STG) Pt will increase B hip flex, ext, and abd MMT to at least 4 /5 in order to demonstrate improved strength required for squats, stairs, and other functional activities 05/22/23: STG Duration 5 weeks [facility] Goal (LTG) Pt will increase B hip flex, ext, and abd MMT to at least 4 +/5 in order to demonstrate improved strength required for squats, stairs, and other functional activities LTG Duration 10 weeks Three Impairment HEP Impairment not performing HEP or daily exercise program Short Term Goal (STG) Pt will report compliance with HEP at least 3x/wk in order to demonstrate return to activity and to maximize gains made during PT sessions 05/22/23: 4-5x/wk STG Duration 5 weeks [facility] Goal (LTG) Pt will report at least 50% return to prior level of workouts 3x/wk in order to demonstrate return to activity , improved pain management, and maintenance program for independent exercise. LTG Duration 10 weeks Two Impairment function Impairment 10 B squats painful with excess knee valgus and pronation Short Term Goal (STG) Pt will perform at least 10 bilateral squats without pain or compensation in order to demonstrate improved quad control and glute activation for functional activities. 05/22/23: 10 bilateral squats w /o pain or compensation using hip hinge STG Duration 5 weeks [facility] [employer] Goal (LTG) Pt will be able to perform at least 10 single leg squats without pain or compensation in order to demonstrate improved quad control and glute activation for functional activities. LTG Duration 10 weeks One Impairment function Short Term Goal (STG) Pt will perform at least 10 eccentric step downs without compensation and reports of <3 /10 B knee pain in order to demonstrate improved hip strength and quad control 05/22/23: able to perform 10 step downs eccentric from 6 step with pain 1/10 L knee, 2/ 10 R knee before taping, 1/10 R knee with taping and 0/10 L knee with taping STG Duration 5 weeks [facility] Goal (LTG) Pt will be able to perform at least 12 stairs without reports of increased pain in order to demonstrate improved hip strength and quad control LTG Duration 10 weeks Progress Towards Goals Progress Towards Goals Progressing Toward Goals Assessment Summary Assessment Pt continues to require cueing for hip hinge to promote increased glute activation rather than peforming activities with quad dominant pattern. Trialed eccentric step downs from both 4 and 6 steps. Demos improved knee stability without valgus, but exhibits glute med weakness with opposite hip drop. Pt has decreased pain symptoms in anterior knee with squats and eccentric steps downs post taping and when cued for greater hip hinge and level pelvis to maximize glutes. Improved depth with squat, less anterior knee movement with cueing to maintain PHILIP at midfoot. Pt has been seen x6 visits since IE in March 2023 for B knee pain. Although pt reports no change in pain symptoms since IE, he does report that he is able to perform ADLs/IADLs and exercise with less difficulty. Pt demos improvements in body mechanics during squats, stairs, and gait; he no longer demonstrates valgus compensation, but he continues to demo a quad dominant pattern resulting in anterior knee pain. Pt would benefit from skilled PT in order to decrease pain symptoms, improve activity tolerance, and for further body mechanics training for return to independent exercise. Physical Therapy Plan Frequency and Duration Frequency of Treatment 1-2x/wk Duration of treatment (weeks) 10 Plan of Care Start Date 04/18/23 Plan of Care End Date 06/28/23 Therapeutic Interventions Therapeutic Interventions Balance Training,Coordination Training,Gait Training,Home Exercise Program,Joint Mobilizations,Manual Therapy, Neuromuscular Re-education, Orthotic/Prosthetic Management ,Patient/Caregiver Education, Self-Care/Home Management,Soft Tissue Mobilization,Taping, Therapeutic Activities, Therapeutic Exercises Modalities Biofeedback,Cold Pack/Ice Massage,Electric Stimulation, Hot Packs,Traction- Mechanical ,Ultrasound,Vasopneumatic Devices Next Visit Focus/Plan Next Note Type Treatment Note Next Visit Plan Next session: lateral touch downs, hip 3 way, eccentric step downs, tape prn, address glutes wall squats with ball vs squat with band to HEP, Next tx: LAQ/quad isometrics in midrange (progress as tolerated)- should be pain free. Progress hip abd/glute strengthening/(trial/review SL hip abd if not do well with steps/clams). Roll out TFL/ glute (ITB) and strengthen. Progress squat with good mechanics and eventually progress to leg press. Possibly trial of mini step up 2 or 4 inch step without pain , quad isometrics, hip strengthening, Manual prn: STM, patellar mobilizations,
--- NOTE | 2023-06-03 12:44 | PT.OTN ---
Current Diagnoses Pain in unspecified knee (06/03/23) Other abnormalities of gait and mobility (06/03/23) Weakness (06/03/23) Physical Therapy Treatment Note PT-OP-A Visit Information Start: 04/17/23 18:16 Freq: Status: Active Protocol: Document 06/03/23 08:17 NM (Rec: 06/03/23 09:00 NM [id number]) Out-Patient Physical Therapy Visit Information Visit Information Visit Type Treatment Note Visit Start Time 08:17 Visit Stop Time 09:00 Visit Number 8 PT-OP-B Current Condition Start: 04/17/23 18:16 Freq: Status: Active Protocol: Document 04/18/23 08:14 NM (Rec: 04/18/23 09:44 NM [id number]) Current Condition History of Current Condition Onset Date 2 years Current Complaints knee pain History of Current Condition Pt presents with B knee pain. Pt also has B wrist pain, R hip, and low back pain; reports pain not consistent. Pt doesn't have a specific known onset or mechanism of injury for knee pain, but believes that he was performing strenous workouts in the past which likely contributed (e.g. heavy weight lifting including squats, deadlift). Reports has not improved over time. Currently, limiting activity due to discomfort. No reports of instability, locking, clicking . No hx of knee injuries, surgeries. No hx hip, ankle, or back injuries. Family hx of RA (mother, onset 40's); no known inflammatory disease. Pain does not feel like it's moving around in knee. Reports that he is able to push through pain without difficulty, but states that it's annoying. Prior Treatments and Tests No imaging, previous PT Prior Functional Status Baseline Function- ADL's Independent Baseline Function- Mobility Independent Baseline Function- Recreation/Hobbies Exercise/weight lifting 5x/wk (combo leg, arm, back days), running as exercise prn Current Functional Impairments (Reported) Functional Limitations- Recreation/ currently limiting physical Hobbies activity unless necessary for work PT-OP-C Subjective Start: 04/17/23 18:16 Freq: Status: Active Protocol: Document 06/03/23 08:17 NM (Rec: 06/03/23 09:00 NM [id number]) OP-PT Subjective Patient Comments Patient Comments Pt reports that pain levels have improved overall. Currently 2/10 B knees with activity, none at rest. 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 PT-OP-D Balance Start: 04/17/23 18:16 Freq: Status: Active Protocol: Document 04/18/23 08:14 NM (Rec: 04/18/23 09:44 NM [id number]) Balance Tests Single Limb Standing Single Limb- Right 10 sec, increased sway, no pain Single Limb- Left 10 sec, increased sway, no pain Tandem Tandem Standing 5 sec EC, 20 sec EO before LOB PT-OP-E Functional Tests Start: 04/17/23 18:16 Freq: Status: Active Protocol: Document 04/18/23 08:14 NM (Rec: 04/18/23 09:44 NM [id number]) Functional Tests Squat Test Score 10 Comments up and down pain, valgus, dec DF, Single Leg Squat Test Score 1 ea Comment deep pistol; valgus B, dec DF Other Eccentric step down Name of Test 4 step Comment B knee valgus, pronation, trendelenburg Hop Name of Test double leg hop; single leg hop Score pain with landing double hop; single leg hop pain with ascend/landing Comment lands with valgus on all attempts, pronation at ankle, hip drop PT-OP-F Manual Assessment Start: 04/17/23 18:16 Freq: Status: Active Protocol: Document 04/18/23 08:14 NM (Rec: 04/18/23 09:44 NM [id number]) Manual Assessments Soft Tissue Assessment Soft Tissue Mobility Assessment Decreased hamstring length bilaterally; not formally measured Joint Mobility Assessment Joint Mobility Assessment No B knee instability, no pain with tibial IR/ER. Decreased B hip AROM and PROM. Slight lateral patellar tracking with short and long sitting knee ext, decreased superior translation in sitting. B knee crepitus with repeated knee flex/ext PT-OP-G Mobility & Gait Start: 04/17/23 18:16 Freq: Status: Active Protocol: Document 04/18/23 08:14 NM (Rec: 04/18/23 09:44 NM [id number]) OP Gait Assessment Gait Gait Assistance Required: Independent Distance (Feet) 200 Assistive Devices Assistive Device None Comments Gait Comments Narrow stance. Increased pronation with gait, B foot ER in stance and during swing. Early toe off. Stair Climbing Evaluation Evaluation Level of Assist On Stairs Independent Devices Stair Climbing Assistive Devices None Technique/Endurance Stair Climbing Direction Ascend and Descend Stair Climbing Technique Step Over Step Number of Steps Climbed 4 Stair Climbing Set # Repetitions (reps) 1 Comments Stair Climbing Comments Anterior knee pain with descent, knee valgus and foot pronation bilaterally PT-OP-J Posture/Palpation/Skin Start: 04/17/23 18:16 Freq: Status: Active Protocol: Document 04/18/23 08:14 NM (Rec: 04/18/23 09:44 NM [id number]) Posture Evaluation Position Standing Evaluation View posterior, lateral Head/C-Spine Posture Forward Head T-Spine Posture Increased Kyphosis L-Spine Posture Increased Lordosis Shoulder Posture (L) Rounded,(R) Rounded Scapula Posture (L) Protracted,(R) Protracted Arm Posture (L) Internally Rotated,(R) Internally Rotated Pelvis Posture Anteriorly Tilted Weight Distribution Balanced Hip Posture (L) Externally Rotated,(R) Externally Rotated Knee Posture (L) Genu Valgus,(R) Genu Valgus Patellar Posture (L) Superior,(R) Superior,(L) Laterally Tilted,(R) Laterally Tilted Ankle/Foot Posture (L) Pronated,(R) Pronated Palpation Assessment Location R knee Palpation Location patella, fibula, joint line, tibia, medial and lateral condyles Palpation Findings Tenderness Palpation Details Tenderness along superomedial patella, worse after resisted extension; minimally tender to palpation. No other tenderness noted along patella , joint lines, tibia, femoral condyles. hips not tender to palpation L knee Palpation Location patella, fibula, joint line, tibia, medial and lateral condyles Palpation Findings Tenderness Palpation Details Tenderness along superomedial patella, worse after resisted extension; minimally tender to palpation. No other tenderness noted along patella , joint lines, tibia, femoral condyles. hips not tender to palpation Skin Assessment Other Assessments Skin Assessment Comments No swelling noted in B knees PT-OP-K Range of Motion Start: 04/17/23 18:16 Freq: Status: Active Protocol: Document 05/22/23 08:18 NM (Rec: 05/22/23 09:05 NM [id number]) Knee Goniometric Range of Motion Knee Right Flexion Active (degrees) 145 Flexion Passive (degrees) 147 Extension Active (degrees) 0 Hyper-Extension Active 4 Comments No pain with active flex/ext translation Left Flexion Active (degrees) 140 Flexion Passive (degrees) 145 Extension Active (degrees) 0 Hyper-Extension Active 5 Comments No pain with active flex/ext translation PT-OP-L Special Tests Start: 04/17/23 18:16 Freq: Status: Active Protocol: Document 04/18/23 08:14 NM (Rec: 04/18/23 09:44 NM [id number]) Special Tests Hip Special Tests scour Test Results - Comments bilaterally Labrum Test Results - Comments anterior and posterior labral tests; bilaterally SITA Test Results - Comments decreased mobility but not painful; bilaterally FADIR Test Results - Comments bilaterally Knee Special Tests Patellar Grind Test Test Results + Marlin Test Test Results - Comments bilaterally Posterior Sag Test Results - Comments bilaterally Posterior Draw Test Results - Comments bilaterally George Test Results - Comments bilaterally Anterior Draw Test Results - Comments bilaterally Varus Test Results - Comments 0 and 30 deg; bilaterally Valgus Test Results - Comments 0 and 30 deg; bilaterally PT-OP-M Strength Start: 04/17/23 18:16 Freq: Status: Active Protocol: Document 05/22/23 08:18 NM (Rec: 05/22/23 09:05 NM [id number]) Hip Strength Hip Manual Muscle Testing Right Flexion (L2) 4- Good- Extension (S1) 4- Good- Abduction 4- Good- Adduction 4 Good External Rotation 4 Good Internal Rotation 4 Good Comments 05/22/23: 4/5 hip flex, 4+/5 for ext/abd Left Flexion (L2) 4- Good- Extension (S1) 4- Good- Abduction 4- Good- Adduction 4 Good External Rotation 4 Good Internal Rotation 4 Good Comments 05/22/23: 4/5 hip flex/abd, 4+/ 5 ext Knee Strength Knee Manual Muscle Testing Right Flexion (S2) 4+ Good+ Extension (L3) 4+ Good+ Comments Pain with resisted extension 05/22/23: 4+/5 MMT, no pain Left Flexion (S2) 4+ Good+ Extension (L3) 4+ Good+ Comments Pain with resisted extension 05/22/23: no pain, 4+/5 PT-OP-Q Treatments Start: 04/17/23 18:16 Freq: Status: Active Protocol: Document 06/03/23 08:17 NM (Rec: 06/03/23 09:00 NM [id number]) Therapeutic Exercises Standing Exercises eccentric step down Side bilateral Equipment Used 4 step Reps/Minutes 1x8 ea Comments demos crepitus; cued level pelvis, no knee valgus lateral touch down Standing Exercise Name 4 step Side bilateral Equipment Used demos crepitus, reports non- painful Reps/Minutes 2x10 Comments for glute med; cued hip hinge, minimize knee over toe, level pelvis squats Standing Exercise Name goblet Side bilateral Resistance 10# db Reps/Minutes 2x15 Comments pain free; cued limit depth if pain occurs, hip 3 way Standing Exercise Name flex/abd/ext Side bilateral Resistance lvl 3 tb around ankles Reps/Minutes 2x8 ea Comments improved hip hinge, pain free single leg lift Standing Exercise Name to 12 step Side bilateral Resistance 8# db in opp hand Reps/Minutes 2x15 Comments cued hip hinge, pain free on knees Other Exercises stretching Other Exercise Name HS (bottoms up), hip flexor Side bilateral Equipment Used HS stretch to 8 box, mat on floor Reps/Minutes 1. 2x20 breath holds, 2. 1x60 Comments pain free, cued for ppt during hip flexor stretch Manual Therapy Treatment Soft Tissue Mobilization peripatellar area bilateral knees Body Location peripatellar, HS, quad bilateral knees, B LCL/MCL Mobilization Type Cross-Friction,Instrument Assisted,Rolling Intensity/Depth Moderate Body Position Hooklying Comments Monitored for pain. Increased HS tightness, no tenderness. Performed prior to stretching Joint Mobilizations L knee Joint patellar Direction Med/lat, Sup/inf, CW CCW Grade III Body Position Supine Reps/Duration 1x15 ea Comments Monitored for pain, improved patellar mobility and no crepitus R knee Joint patellar Direction med/lat, sup/inf, CW and CCW Grade III Body Position Supine Reps/Duration 1x15 ea Comments Monitored for pain, Improved patellar mobility and no crepitus Self-Care/Home Management Treatment Education Patient Education Home Exercise Program Other Education HEP: single leg RDL, goblet squat PT-OP-T Assessment and Plan Start: 04/17/23 18:16 Freq: Status: Active Protocol: Document 06/03/23 08:17 NM (Rec: 06/03/23 09:00 NM [id number]) Physical Therapy Assessment Goals Four Impairment strength Impairment B hip flex, ext, abd 4-/5 MMT Short Term Goal (STG) Pt will increase B hip flex, ext, and abd MMT to at least 4 /5 in order to demonstrate improved strength required for squats, stairs, and other functional activities 05/22/23: STG Duration 5 weeks [facility] Goal (LTG) Pt will increase B hip flex, ext, and abd MMT to at least 4 +/5 in order to demonstrate improved strength required for squats, stairs, and other functional activities LTG Duration 10 weeks Three Impairment HEP Impairment not performing HEP or daily exercise program Short Term Goal (STG) Pt will report compliance with HEP at least 3x/wk in order to demonstrate return to activity and to maximize gains made during PT sessions 05/22/23: 4-5x/wk STG Duration 5 weeks [facility] Goal (LTG) Pt will report at least 50% return to prior level of workouts 3x/wk in order to demonstrate return to activity , improved pain management, and maintenance program for independent exercise. LTG Duration 10 weeks Two Impairment function Impairment 10 B squats painful with excess knee valgus and pronation Short Term Goal (STG) Pt will perform at least 10 bilateral squats without pain or compensation in order to demonstrate improved quad control and glute activation for functional activities. 05/22/23: 10 bilateral squats w /o pain or compensation using hip hinge STG Duration 5 weeks [facility] Goal (LTG) Pt will be able to perform at least 10 single leg squats without pain or compensation in order to demonstrate improved quad control and glute activation for functional activities. LTG Duration 10 weeks One Impairment function Short Term Goal (STG) Pt will perform at least 10 eccentric step downs without compensation and reports of <3 /10 B knee pain in order to demonstrate improved hip strength and quad control 05/22/23: able to perform 10 step downs eccentric from 6 step with pain 1/10 L knee, 2/ 10 R knee before taping, 1/10 R knee with taping and 0/10 L knee with taping STG Duration 5 weeks [facility] Goal (LTG) Pt will be able to perform at least 12 stairs without reports of increased pain in order to demonstrate improved hip strength and quad control LTG Duration 10 weeks Assessment Summary Assessment Pt presents with improvement in pain symptoms prior to session and during activity; however still 2/10 bilaterally post session. Continued with glute strengthening to create stability and hips/knees. Initiated lateral step down for increased glute medius activation. Pt cued for level pelvis and hip hinge. Demos greater stability of L knee than R knee with single leg activities. Trialed eccentric step downs from 4 step; pt demos non-painful crepitus, cued for slower squat to promote improved knee mechanics. Pt able to perform goblet squats without knee pain or discomfort at increased depth with good hip hinge. PT reminded pt to follow up with PCP regarding auth as will be expiring soon. Pt would benefit from skilled PT for B hip/knee strengthening and stabilization training in order to reduce pain symptoms and improve activity tolerance . Physical Therapy Plan Frequency and Duration Frequency of Treatment 1-2x/wk Duration of treatment (weeks) 10 Plan of Care Start Date 04/18/23 Plan of Care End Date 06/28/23 Therapeutic Interventions Therapeutic Interventions Balance Training,Coordination Training,Gait Training,Home Exercise Program,Joint Mobilizations,Manual Therapy, Neuromuscular Re-education, Orthotic/Prosthetic Management ,Patient/Caregiver Education, Self-Care/Home Management,Soft Tissue Mobilization,Taping, Therapeutic Activities, Therapeutic Exercises Modalities Biofeedback,Cold Pack/Ice Massage,Electric Stimulation, Hot Packs,Traction- Mechanical ,Ultrasound,Vasopneumatic Devices Next Visit Focus/Plan Next Note Type Treatment Note Next Visit Plan Next session: review lateral touch down 6, trial leg press , bosu squat vs split squat, eccentric step down 4 with slower form, tape prn Remind about auth wall squats with ball vs squat with band to HEP, Next tx: LAQ/quad isometrics in midrange (progress as tolerated)- should be pain free. Progress hip abd/glute strengthening/(trial/review SL hip abd if not do well with steps/clams). Roll out TFL/ glute (ITB) and strengthen. Progress squat with good mechanics and eventually progress to leg press. Possibly trial of mini step up 2 or 4 inch step without pain , quad isometrics, hip strengthening, Manual prn: STM, patellar mobilizations,
--- NOTE | 2023-06-06 09:01 | PT.OTN ---
Current Diagnoses Pain in unspecified knee (06/06/23) Other abnormalities of gait and mobility (06/06/23) Weakness (06/06/23) Physical Therapy Treatment Note PT-OP-A Visit Information Start: 04/17/23 18:16 Freq: Status: Active Protocol: Document 06/06/23 08:16 NM (Rec: 06/06/23 09:01 NM [id number]) Out-Patient Physical Therapy Visit Information Visit Information Visit Type Treatment Note Visit Start Time 08:16 Visit Stop Time 09:00 Visit Number 9 PT-OP-B Current Condition Start: 04/17/23 18:16 Freq: Status: Active Protocol: Document 04/18/23 08:14 NM (Rec: 04/18/23 09:44 NM [id number]) Current Condition History of Current Condition Onset Date 2 years Current Complaints knee pain History of Current Condition Pt presents with B knee pain. Pt also has B wrist pain, R hip, and low back pain; reports pain not consistent. Pt doesn't have a specific known onset or mechanism of injury for knee pain, but believes that he was performing strenous workouts in the past which likely contributed (e.g. heavy weight lifting including squats, deadlift). Reports has not improved over time. Currently, limiting activity due to discomfort. No reports of instability, locking, clicking . No hx of knee injuries, surgeries. No hx hip, ankle, or back injuries. Family hx of RA (mother, onset 40's); no known inflammatory disease. Pain does not feel like it's moving around in knee. Reports that he is able to push through pain without difficulty, but states that it's annoying. Prior Treatments and Tests No imaging, previous PT Prior Functional Status Baseline Function- ADL's Independent Baseline Function- Mobility Independent Baseline Function- Recreation/Hobbies Exercise/weight lifting 5x/wk (combo leg, arm, back days), running as exercise prn Current Functional Impairments (Reported) Functional Limitations- Recreation/ currently limiting physical Hobbies activity unless necessary for work PT-OP-C Subjective Start: 04/17/23 18:16 Freq: Status: Active Protocol: Document 06/06/23 08:16 NM (Rec: 06/06/23 09:01 NM [id number]) OP-PT Subjective Patient Comments Patient Comments Pt reports that he was sore after last session (hips), reports no pain with walking. Pain with stairs, running, hiking 2/10 anterior knee PT-OP-D Balance Start: 04/17/23 18:16 Freq: Status: Active Protocol: Document 04/18/23 08:14 NM (Rec: 04/18/23 09:44 NM [id number]) Balance Tests Single Limb Standing Single Limb- Right 10 sec, increased sway, no pain Single Limb- Left 10 sec, increased sway, no pain Tandem Tandem Standing 5 sec EC, 20 sec EO before LOB PT-OP-E Functional Tests Start: 04/17/23 18:16 Freq: Status: Active Protocol: Document 04/18/23 08:14 NM (Rec: 04/18/23 09:44 NM [id number]) Functional Tests Squat Test Score 10 Comments up and down pain, valgus, dec DF, Single Leg Squat Test Score 1 ea Comment deep pistol; valgus B, dec DF Other Eccentric step down Name of Test 4 step Comment B knee valgus, pronation, trendelenburg Hop Name of Test double leg hop; single leg hop Score pain with landing double hop; single leg hop pain with ascend/landing Comment lands with valgus on all attempts, pronation at ankle, hip drop PT-OP-F Manual Assessment Start: 04/17/23 18:16 Freq: Status: Active Protocol: Document 04/18/23 08:14 NM (Rec: 04/18/23 09:44 NM [id number]) Manual Assessments Soft Tissue Assessment Soft Tissue Mobility Assessment Decreased hamstring length bilaterally; not formally measured Joint Mobility Assessment Joint Mobility Assessment No B knee instability, no pain with tibial IR/ER. Decreased B hip AROM and PROM. Slight lateral patellar tracking with short and long sitting knee ext, decreased superior translation in sitting. B knee crepitus with repeated knee flex/ext PT-OP-G Mobility & Gait Start: 04/17/23 18:16 Freq: Status: Active Protocol: Document 04/18/23 08:14 NM (Rec: 04/18/23 09:44 NM [id number]) OP Gait Assessment Gait Gait Assistance Required: Independent Distance (Feet) 200 Assistive Devices Assistive Device None Comments Gait Comments Narrow stance. Increased pronation with gait, B foot ER in stance and during swing. Early toe off. Stair Climbing Evaluation Evaluation Level of Assist On Stairs Independent Devices Stair Climbing Assistive Devices None Technique/Endurance Stair Climbing Direction Ascend and Descend Stair Climbing Technique Step Over Step Number of Steps Climbed 4 Stair Climbing Set # Repetitions (reps) 1 Comments Stair Climbing Comments Anterior knee pain with descent, knee valgus and foot pronation bilaterally PT-OP-J Posture/Palpation/Skin Start: 04/17/23 18:16 Freq: Status: Active Protocol: Document 04/18/23 08:14 NM (Rec: 04/18/23 09:44 NM [id number]) Posture Evaluation Position Standing Evaluation View posterior, lateral Head/C-Spine Posture Forward Head T-Spine Posture Increased Kyphosis L-Spine Posture Increased Lordosis Shoulder Posture (L) Rounded,(R) Rounded Scapula Posture (L) Protracted,(R) Protracted Arm Posture (L) Internally Rotated,(R) Internally Rotated Pelvis Posture Anteriorly Tilted Weight Distribution Balanced Hip Posture (L) Externally Rotated,(R) Externally Rotated Knee Posture (L) Genu Valgus,(R) Genu Valgus Patellar Posture (L) Superior,(R) Superior,(L) Laterally Tilted,(R) Laterally Tilted Ankle/Foot Posture (L) Pronated,(R) Pronated Palpation Assessment Location R knee Palpation Location patella, fibula, joint line, tibia, medial and lateral condyles Palpation Findings Tenderness Palpation Details Tenderness along superomedial patella, worse after resisted extension; minimally tender to palpation. No other tenderness noted along patella , joint lines, tibia, femoral condyles. hips not tender to palpation L knee Palpation Location patella, fibula, joint line, tibia, medial and lateral condyles Palpation Findings Tenderness Palpation Details Tenderness along superomedial patella, worse after resisted extension; minimally tender to palpation. No other tenderness noted along patella , joint lines, tibia, femoral condyles. hips not tender to palpation Skin Assessment Other Assessments Skin Assessment Comments No swelling noted in B knees PT-OP-K Range of Motion Start: 04/17/23 18:16 Freq: Status: Active Protocol: Document 05/22/23 08:18 NM (Rec: 05/22/23 09:05 NM [id number]) Knee Goniometric Range of Motion Knee Right Flexion Active (degrees) 145 Flexion Passive (degrees) 147 Extension Active (degrees) 0 Hyper-Extension Active 4 Comments No pain with active flex/ext translation Left Flexion Active (degrees) 140 Flexion Passive (degrees) 145 Extension Active (degrees) 0 Hyper-Extension Active 5 Comments No pain with active flex/ext translation PT-OP-L Special Tests Start: 04/17/23 18:16 Freq: Status: Active Protocol: Document 04/18/23 08:14 NM (Rec: 04/18/23 09:44 NM [id number]) Special Tests Hip Special Tests scour Test Results - Comments bilaterally Labrum Test Results - Comments anterior and posterior labral tests; bilaterally SITA Test Results - Comments decreased mobility but not painful; bilaterally FADIR Test Results - Comments bilaterally Knee Special Tests Patellar Grind Test Test Results + Marlin Test Test Results - Comments bilaterally Posterior Sag Test Results - Comments bilaterally Posterior Draw Test Results - Comments bilaterally George Test Results - Comments bilaterally Anterior Draw Test Results - Comments bilaterally Varus Test Results - Comments 0 and 30 deg; bilaterally Valgus Test Results - Comments 0 and 30 deg; bilaterally PT-OP-M Strength Start: 04/17/23 18:16 Freq: Status: Active Protocol: Document 05/22/23 08:18 NM (Rec: 05/22/23 09:05 NM [id number]) Hip Strength Hip Manual Muscle Testing Right Flexion (L2) 4- Good- Extension (S1) 4- Good- Abduction 4- Good- Adduction 4 Good External Rotation 4 Good Internal Rotation 4 Good Comments 05/22/23: 4/5 hip flex, 4+/5 for ext/abd Left Flexion (L2) 4- Good- Extension (S1) 4- Good- Abduction 4- Good- Adduction 4 Good External Rotation 4 Good Internal Rotation 4 Good Comments 05/22/23: 4/5 hip flex/abd, 4+/ 5 ext Knee Strength Knee Manual Muscle Testing Right Flexion (S2) 4+ Good+ Extension (L3) 4+ Good+ Comments Pain with resisted extension 05/22/23: 4+/5 MMT, no pain Left Flexion (S2) 4+ Good+ Extension (L3) 4+ Good+ Comments Pain with resisted extension 05/22/23: no pain, 4+/5 PT-OP-Q Treatments Start: 04/17/23 18:16 Freq: Status: Active Protocol: Document 06/06/23 08:16 NM (Rec: 06/06/23 09:01 NM [id number]) Therapeutic Exercises Standing Exercises lateral touch down Standing Exercise Name 4 step Side bilateral Equipment Used demos crepitus, reports non- painful Reps/Minutes 2x12 Comments for glute med; cued hip hinge, minimize knee over toe, level pelvis squats Standing Exercise Name trialed in PT: split squats Side bilateral Resistance AROM Reps/Minutes 3x10 Comments 0/10 pain, cued upright posture, no knee valgus single leg lift Standing Exercise Name to 12 step>8 step Side bilateral Resistance 8# db in opp hand> 10# db Reps/Minutes 2x15 Comments cued hip hinge, pain free on knees SL sliders Standing Exercise Name Y drill with sliders (12, 5, 7 o'clock) Side bilateral Resistance lvl 3 tb around ankles Reps/Minutes 1x12 Comments cued to maintain knee over midfoot Manual Therapy Treatment Soft Tissue Mobilization peripatellar area bilateral knees Body Location peripatellar, HS, quad Mobilization Type Cross-Friction,Instrument Assisted,Rolling Intensity/Depth Moderate Body Position prone,supine Comments cross friction of supra/ infrapatellar tendons/quad tendon. Increased quad tightness Joint Mobilizations L knee Joint patellar Direction Med/lat, Sup/inf, CW CCW Grade III Body Position Supine Reps/Duration 1x15 ea Comments Monitored for pain, improved patellar mobility and no crepitus R knee Joint patellar Direction med/lat, sup/inf, CW and CCW Grade III Body Position Supine Reps/Duration 1x15 ea Comments Monitored for pain, Improved patellar mobility and no crepitus Neuro Re-Education Treatment Balance Activities BOSU squat Details blue side up Surface unstable Reps/Duration 1x20 Comments pain free, easy single leg stance Details foam pad Reps/Duration 1x60 ea Comments TKE, pain free, demos increased ankle sway after 30 single leg ball toss Details performed bilaterally Surface stable Equipment trampoline, red ball Comments 1. fwd, 2x10 2. lateral, 2x10 Good knee stability, increased ankle sway on L side PT-OP-T Assessment and Plan Start: 04/17/23 18:16 Freq: Status: Active Protocol: Document 06/06/23 08:16 NM (Rec: 06/06/23 09:01 NM [id number]) Physical Therapy Assessment Goals Four Impairment strength Impairment B hip flex, ext, abd 4-/5 MMT Short Term Goal (STG) Pt will increase B hip flex, ext, and abd MMT to at least 4 /5 in order to demonstrate improved strength required for squats, stairs, and other functional activities 05/22/23: STG Duration 5 weeks MET [facility] Goal (LTG) Pt will increase B hip flex, ext, and abd MMT to at least 4 +/5 in order to demonstrate improved strength required for squats, stairs, and other functional activities LTG Duration 10 weeks Three Impairment HEP Impairment not performing HEP or daily exercise program Short Term Goal (STG) Pt will report compliance with HEP at least 3x/wk in order to demonstrate return to activity and to maximize gains made during PT sessions 05/22/23: 4-5x/wk STG Duration 5 weeks MET [facility] Goal (LTG) Pt will report at least 50% return to prior level of workouts 3x/wk in order to demonstrate return to activity , improved pain management, and maintenance program for independent exercise. LTG Duration 10 weeks Two Impairment function Impairment 10 B squats painful with excess knee valgus and pronation Short Term Goal (STG) Pt will perform at least 10 bilateral squats without pain or compensation in order to demonstrate improved quad control and glute activation for functional activities. 05/22/23: 10 bilateral squats w /o pain or compensation using hip hinge STG Duration 5 weeks MET [employer]er Goal (LTG) Pt will be able to perform at least 10 single leg squats without pain or compensation in order to demonstrate improved quad control and glute activation for functional activities. LTG Duration 10 weeks One Impairment function Short Term Goal (STG) Pt will perform at least 10 eccentric step downs without compensation and reports of <3 /10 B knee pain in order to demonstrate improved hip strength and quad control 05/22/23: able to perform 10 step downs eccentric from 6 step with pain 1/10 L knee, 2/ 10 R knee before taping, 1/10 R knee with taping and 0/10 L knee with taping STG Duration 5 weeks MET [employer] Goal (LTG) Pt will be able to perform at least 12 stairs without reports of increased pain in order to demonstrate improved hip strength and quad control LTG Duration 10 weeks Assessment Summary Assessment Continued with glute strengthening. PT has 1/10 pain with lateral step downs, but demos improvements in pelvic stability and glute strength. Initiated split squats and Y drill with a slider for quad/glute strengthening. Pt continues to have 1/10 B anterior knee pain, but reports no increase in symptoms during activities. PT provided verbal and tactile cues for pt to maintain knee centered over midfoot to prevent forward translation over toe and to limit knee valgus. Initiated more single leg stability activities to improve balance and challenge knee stability. Ankle stability more challenged on LLE. Pt would benefit from skilled PT for progressive BLE strengthening, body mechanics training, and single leg stability training in order to decrease pain symptoms, improve activity tolerance, and increase QOL. Physical Therapy Plan Frequency and Duration Frequency of Treatment 1-2x/wk Duration of treatment (weeks) 10 Plan of Care Start Date 04/18/23 Plan of Care End Date 06/28/23 Therapeutic Interventions Therapeutic Interventions Balance Training,Coordination Training,Gait Training,Home Exercise Program,Joint Mobilizations,Manual Therapy, Neuromuscular Re-education, Orthotic/Prosthetic Management ,Patient/Caregiver Education, Self-Care/Home Management,Soft Tissue Mobilization,Taping, Therapeutic Activities, Therapeutic Exercises Modalities Biofeedback,Cold Pack/Ice Massage,Electric Stimulation, Hot Packs,Traction- Mechanical ,Ultrasound,Vasopneumatic Devices Next Visit Focus/Plan Next Note Type Treatment Note Next Visit Plan Transition into single leg stability, cont glute strengthening; trial leg press Next session: review lateral touch down 6, trial leg press , bosu squat vs split squat, eccentric step down 4 with slower form, tape prn Remind about auth Next tx: LAQ/quad isometrics in midrange (progress as tolerated)- should be pain free. Progress hip abd/glute strengthening/(trial/review SL hip abd if not do well with steps/clams). Roll out TFL/ glute (ITB) and strengthen. Progress squat with good mechanics and eventually progress to leg press. Possibly trial of mini step up 2 or 4 inch step without pain , quad isometrics, hip strengthening, Manual prn: STM, patellar mobilizations, PN in 2 visits
--- NOTE | 2023-06-11 08:26 | PT-OP ANOTE ---
Pt cancelled yesterday via text on [facility] [employer]. [employer] called and left voicemessage inquiring reason for cancel and hoping to help with progression in tx mindful of attendance for support return to PL of activity. Reminded next appt and if need cancel to leave reasoning if can.
--- NOTE | 2023-06-13 12:51 | PT.OTN ---
Current Diagnoses Pain in unspecified knee (06/13/23) Other abnormalities of gait and mobility (06/13/23) Weakness (06/13/23) Physical Therapy Treatment Note PT-OP-A Visit Information Start: 04/17/23 18:16 Freq: Status: Active Protocol: Document 06/13/23 08:20 NM (Rec: 06/13/23 09:03 NM [id number]) Out-Patient Physical Therapy Visit Information Visit Information Visit Type Treatment Note Visit Start Time 08:20 Visit Stop Time 09:00 Visit Number 10 PT-OP-B Current Condition Start: 04/17/23 18:16 Freq: Status: Active Protocol: Document 04/18/23 08:14 NM (Rec: 04/18/23 09:44 NM [id number]) Current Condition History of Current Condition Onset Date 2 years Current Complaints knee pain History of Current Condition Pt presents with B knee pain. Pt also has B wrist pain, R hip, and low back pain; reports pain not consistent. Pt doesn't have a specific known onset or mechanism of injury for knee pain, but believes that he was performing strenous workouts in the past which likely contributed (e.g. heavy weight lifting including squats, deadlift). Reports has not improved over time. Currently, limiting activity due to discomfort. No reports of instability, locking, clicking . No hx of knee injuries, surgeries. No hx hip, ankle, or back injuries. Family hx of RA (mother, onset 40's); no known inflammatory disease. Pain does not feel like it's moving around in knee. Reports that he is able to push through pain without difficulty, but states that it's annoying. Prior Treatments and Tests No imaging, previous PT Prior Functional Status Baseline Function- ADL's Independent Baseline Function- Mobility Independent Baseline Function- Recreation/Hobbies Exercise/weight lifting 5x/wk (combo leg, arm, back days), running as exercise prn Current Functional Impairments (Reported) Functional Limitations- Recreation/ currently limiting physical Hobbies activity unless necessary for work PT-OP-C Subjective Start: 04/17/23 18:16 Freq: Status: Active Protocol: Document 06/13/23 08:20 NM (Rec: 06/13/23 09:03 NM [id number]) OP-PT Subjective Patient Comments Patient Comments Pt reports no change in symptoms. Pt reports he has not been compliant with HEP due to busy schedule PT-OP-D Balance Start: 04/17/23 18:16 Freq: Status: Active Protocol: Document 04/18/23 08:14 NM (Rec: 04/18/23 09:44 NM [id number]) Balance Tests Single Limb Standing Single Limb- Right 10 sec, increased sway, no pain Single Limb- Left 10 sec, increased sway, no pain Tandem Tandem Standing 5 sec EC, 20 sec EO before LOB PT-OP-E Functional Tests Start: 04/17/23 18:16 Freq: Status: Active Protocol: Document 04/18/23 08:14 NM (Rec: 04/18/23 09:44 NM [id number]) Functional Tests Squat Test Score 10 Comments up and down pain, valgus, dec DF, Single Leg Squat Test Score 1 ea Comment deep pistol; valgus B, dec DF Other Eccentric step down Name of Test 4 step Comment B knee valgus, pronation, trendelenburg Hop Name of Test double leg hop; single leg hop Score pain with landing double hop; single leg hop pain with ascend/landing Comment lands with valgus on all attempts, pronation at ankle, hip drop PT-OP-F Manual Assessment Start: 04/17/23 18:16 Freq: Status: Active Protocol: Document 04/18/23 08:14 NM (Rec: 04/18/23 09:44 NM [id number]) Manual Assessments Soft Tissue Assessment Soft Tissue Mobility Assessment Decreased hamstring length bilaterally; not formally measured Joint Mobility Assessment Joint Mobility Assessment No B knee instability, no pain with tibial IR/ER. Decreased B hip AROM and PROM. Slight lateral patellar tracking with short and long sitting knee ext, decreased superior translation in sitting. B knee crepitus with repeated knee flex/ext PT-OP-G Mobility & Gait Start: 04/17/23 18:16 Freq: Status: Active Protocol: Document 04/18/23 08:14 NM (Rec: 04/18/23 09:44 NM [id number]) OP Gait Assessment Gait Gait Assistance Required: Independent Distance (Feet) 200 Assistive Devices Assistive Device None Comments Gait Comments Narrow stance. Increased pronation with gait, B foot ER in stance and during swing. Early toe off. Stair Climbing Evaluation Evaluation Level of Assist On Stairs Independent Devices Stair Climbing Assistive Devices None Technique/Endurance Stair Climbing Direction Ascend and Descend Stair Climbing Technique Step Over Step Number of Steps Climbed 4 Stair Climbing Set # Repetitions (reps) 1 Comments Stair Climbing Comments Anterior knee pain with descent, knee valgus and foot pronation bilaterally PT-OP-J Posture/Palpation/Skin Start: 04/17/23 18:16 Freq: Status: Active Protocol: Document 04/18/23 08:14 NM (Rec: 04/18/23 09:44 NM [id number]) Posture Evaluation Position Standing Evaluation View posterior, lateral Head/C-Spine Posture Forward Head T-Spine Posture Increased Kyphosis L-Spine Posture Increased Lordosis Shoulder Posture (L) Rounded,(R) Rounded Scapula Posture (L) Protracted,(R) Protracted Arm Posture (L) Internally Rotated,(R) Internally Rotated Pelvis Posture Anteriorly Tilted Weight Distribution Balanced Hip Posture (L) Externally Rotated,(R) Externally Rotated Knee Posture (L) Genu Valgus,(R) Genu Valgus Patellar Posture (L) Superior,(R) Superior,(L) Laterally Tilted,(R) Laterally Tilted Ankle/Foot Posture (L) Pronated,(R) Pronated Palpation Assessment Location R knee Palpation Location patella, fibula, joint line, tibia, medial and lateral condyles Palpation Findings Tenderness Palpation Details Tenderness along superomedial patella, worse after resisted extension; minimally tender to palpation. No other tenderness noted along patella , joint lines, tibia, femoral condyles. hips not tender to palpation L knee Palpation Location patella, fibula, joint line, tibia, medial and lateral condyles Palpation Findings Tenderness Palpation Details Tenderness along superomedial patella, worse after resisted extension; minimally tender to palpation. No other tenderness noted along patella , joint lines, tibia, femoral condyles. hips not tender to palpation Skin Assessment Other Assessments Skin Assessment Comments No swelling noted in B knees PT-OP-K Range of Motion Start: 04/17/23 18:16 Freq: Status: Active Protocol: Document 05/22/23 08:18 NM (Rec: 05/22/23 09:05 NM [id number]) Knee Goniometric Range of Motion Knee Right Flexion Active (degrees) 145 Flexion Passive (degrees) 147 Extension Active (degrees) 0 Hyper-Extension Active 4 Comments No pain with active flex/ext translation Left Flexion Active (degrees) 140 Flexion Passive (degrees) 145 Extension Active (degrees) 0 Hyper-Extension Active 5 Comments No pain with active flex/ext translation PT-OP-L Special Tests Start: 04/17/23 18:16 Freq: Status: Active Protocol: Document 04/18/23 08:14 NM (Rec: 04/18/23 09:44 NM [id number]) Special Tests Hip Special Tests scour Test Results - Comments bilaterally Labrum Test Results - Comments anterior and posterior labral tests; bilaterally SITA Test Results - Comments decreased mobility but not painful; bilaterally FADIR Test Results - Comments bilaterally Knee Special Tests Patellar Grind Test Test Results + Marlin Test Test Results - Comments bilaterally Posterior Sag Test Results - Comments bilaterally Posterior Draw Test Results - Comments bilaterally George Test Results - Comments bilaterally Anterior Draw Test Results - Comments bilaterally Varus Test Results - Comments 0 and 30 deg; bilaterally Valgus Test Results - Comments 0 and 30 deg; bilaterally PT-OP-M Strength Start: 04/17/23 18:16 Freq: Status: Active Protocol: Document 05/22/23 08:18 NM (Rec: 05/22/23 09:05 NM [id number]) Hip Strength Hip Manual Muscle Testing Right Flexion (L2) 4- Good- Extension (S1) 4- Good- Abduction 4- Good- Adduction 4 Good External Rotation 4 Good Internal Rotation 4 Good Comments 05/22/23: 4/5 hip flex, 4+/5 for ext/abd Left Flexion (L2) 4- Good- Extension (S1) 4- Good- Abduction 4- Good- Adduction 4 Good External Rotation 4 Good Internal Rotation 4 Good Comments 05/22/23: 4/5 hip flex/abd, 4+/ 5 ext Knee Strength Knee Manual Muscle Testing Right Flexion (S2) 4+ Good+ Extension (L3) 4+ Good+ Comments Pain with resisted extension 05/22/23: 4+/5 MMT, no pain Left Flexion (S2) 4+ Good+ Extension (L3) 4+ Good+ Comments Pain with resisted extension 05/22/23: no pain, 4+/5 PT-OP-Q Treatments Start: 04/17/23 18:16 Freq: Status: Active Protocol: Document 06/13/23 08:20 NM (Rec: 06/13/23 09:03 NM [id number]) Gym Equipment Shuttle Recovery Unilateral squat Details pain free; cued knee align w/ ankle Resistance 100# (2 navy) Shuttle Recovery Platform Stable Reps/Time 2x10 B squat Details pain free after several reps; cued feet closer d/t knee valgus Resistance 100# (4 navy)>150# Shuttle Recovery Platform Stable Reps/Time 1x15, 1x15, 1x10 Therapeutic Exercises Standing Exercises lunge Standing Exercise Name lateral lunges Side bilateral Resistance lvl 3 band Equipment Used 2nd set w/ 10# tball Reps/Minutes 2x15 Comments cued more hip hinge, upright posture, knee behind toe; pain free Other Exercises stretching Other Exercise Name HS (bottoms up), hip flexor in 1/2 kneel Side bilateral Equipment Used HS stretch to 8 box, pillow under knee on floor Reps/Minutes 1. 2x30 breath holds, 2. 1x60 Comments pain free, cued for ppt during hip flexor stretch Manual Therapy Treatment Soft Tissue Mobilization peripatellar area bilateral knees Body Location peripatellar area, patellar tendon Mobilization Type Cross-Friction,Instrument Assisted,Rolling Intensity/Depth Moderate Body Position prone,supine Comments Cross friction of patellar tendons, slightly thickened L tendon compared to RLE. No pain or tenderness today Joint Mobilizations L knee Joint patellar Direction medial, sup/inf Grade III Body Position Supine Reps/Duration 1x15 ea Comments Monitored for pain, improved patellar mobility and no crepitus today R knee Joint patellar Direction medial, sup/inf Grade III Body Position Supine Reps/Duration 1x15 ea Comments Monitored for pain, Improved patellar mobility and no crepitus today Neuro Re-Education Treatment Balance Activities single leg RDL Details bilateral Surface foam paid Equipment 5# db in hand to 12 step Reps/Duration 2x12 Comments Pain free, improved stability with reps but challenged on R> L Increased ankle sway BOSU squat Details black side up Surface unstable Comments 1. stance, 1x60 2. squat, 1x10 3. pallof press w/ 5# db, 1x10 challenging, increased ankle sway, difficulty stabilizing but no LOB, pain free PT-OP-T Assessment and Plan Start: 04/17/23 18:16 Freq: Status: Active Protocol: Document 06/13/23 08:20 NM (Rec: 06/13/23 09:03 NM [id number]) Physical Therapy Assessment Goals Four Impairment strength Impairment B hip flex, ext, abd 4-/5 MMT Short Term Goal (STG) Pt will increase B hip flex, ext, and abd MMT to at least 4 /5 in order to demonstrate improved strength required for squats, stairs, and other functional activities 05/22/23: STG Duration 5 weeks [facility] Goal (LTG) Pt will increase B hip flex, ext, and abd MMT to at least 4 +/5 in order to demonstrate improved strength required for squats, stairs, and other functional activities LTG Duration 10 weeks Three Impairment HEP Impairment not performing HEP or daily exercise program Short Term Goal (STG) Pt will report compliance with HEP at least 3x/wk in order to demonstrate return to activity and to maximize gains made during PT sessions 05/22/23: 4-5x/wk STG Duration 5 weeks [facility] [employer] [employer] Goal (LTG) Pt will report at least 50% return to prior level of workouts 3x/wk in order to demonstrate return to activity , improved pain management, and maintenance program for independent exercise. LTG Duration 10 weeks Two Impairment function Impairment 10 B squats painful with excess knee valgus and pronation Short Term Goal (STG) Pt will perform at least 10 bilateral squats without pain or compensation in order to demonstrate improved quad control and glute activation for functional activities. 05/22/23: 10 bilateral squats w /o pain or compensation using hip hinge STG Duration 5 weeks [facility] Goal (LTG) Pt will be able to perform at least 10 single leg squats without pain or compensation in order to demonstrate improved quad control and glute activation for functional activities. LTG Duration 10 weeks One Impairment function Short Term Goal (STG) Pt will perform at least 10 eccentric step downs without compensation and reports of <3 /10 B knee pain in order to demonstrate improved hip strength and quad control 05/22/23: able to perform 10 step downs eccentric from 6 step with pain 1/10 L knee, 2/ 10 R knee before taping, 1/10 R knee with taping and 0/10 L knee with taping STG Duration 5 weeks [facility] Goal (LTG) Pt will be able to perform at least 12 stairs without reports of increased pain in order to demonstrate improved hip strength and quad control LTG Duration 10 weeks Assessment Summary Assessment Pt tolerated session well. He has improved B patellar mobility, less lateral tracking with quad setting during manual treatment, in addition to less tenderness of B patellar tendons. Initiated leg press to progressively load quads/glutes. Pt reports prn quad tendon discomfort, but states not painful. Trialed lateral lunges, pain free with cueing for more upright trunk posture and knee alignment behind toes. Challenged by dynamic balance activities, unstable surface with bosu. Pt demos increased ankle strategy, difficulty with maintaining stability w/o LOB. Pt would benefit from skilled PT for further single leg stability and progressive quad loading in order to improve activity tolerance and symptom management. Physical Therapy Plan Frequency and Duration Frequency of Treatment 1-2x/wk Duration of treatment (weeks) 10 Plan of Care Start Date 04/18/23 Plan of Care End Date 06/28/23 Therapeutic Interventions Therapeutic Interventions Balance Training,Coordination Training,Gait Training,Home Exercise Program,Joint Mobilizations,Manual Therapy, Neuromuscular Re-education, Orthotic/Prosthetic Management ,Patient/Caregiver Education, Self-Care/Home Management,Soft Tissue Mobilization,Taping, Therapeutic Activities, Therapeutic Exercises Modalities Biofeedback,Cold Pack/Ice Massage,Electric Stimulation, Hot Packs,Traction- Mechanical ,Ultrasound,Vasopneumatic Devices Next Visit Focus/Plan Next Note Type Progress Note Next Visit Plan 06/19: rear elevated bosu squat , leg press, slider Transition into single leg stability, cont glute strengthening; trial leg press Next session: review lateral touch down 6, trial leg press , bosu squat vs split squat, eccentric step down 4 with slower form, tape prn Remind about auth Next tx: LAQ/quad isometrics in midrange (progress as tolerated)- should be pain free. Progress hip abd/glute strengthening/(trial/review SL hip abd if not do well with steps/clams). Roll out TFL/ glute (ITB) and strengthen. Progress squat with good mechanics and eventually progress to leg press. Possibly trial of mini step up 2 or 4 inch step without pain , quad isometrics, hip strengthening, Manual prn: STM, patellar mobilizations, PN in 2 visits
--- NOTE | 2023-06-20 12:59 | PT.OTN ---
Current Diagnoses Pain in unspecified knee (06/20/23) Other abnormalities of gait and mobility (06/20/23) Weakness (06/20/23) Physical Therapy Treatment Note PT-OP-A Visit Information Start: 04/17/23 18:16 Freq: Status: Active Protocol: Document 06/20/23 08:20 NM (Rec: 06/20/23 09:05 NM [id number]) Out-Patient Physical Therapy Visit Information Visit Information Visit Type Progress Note Visit Start Time 08:20 Visit Stop Time 09:00 Visit Number 11 Evaluation Information Evaluation Date 04/18/23 PT-OP-B Current Condition Start: 04/17/23 18:16 Freq: Status: Active Protocol: Document 04/18/23 08:14 NM (Rec: 04/18/23 09:44 NM [id number]) Current Condition History of Current Condition Onset Date 2 years Current Complaints knee pain History of Current Condition Pt presents with B knee pain. Pt also has B wrist pain, R hip, and low back pain; reports pain not consistent. Pt doesn't have a specific known onset or mechanism of injury for knee pain, but believes that he was performing strenous workouts in the past which likely contributed (e.g. heavy weight lifting including squats, deadlift). Reports has not improved over time. Currently, limiting activity due to discomfort. No reports of instability, locking, clicking . No hx of knee injuries, surgeries. No hx hip, ankle, or back injuries. Family hx of RA (mother, onset 40's); no known inflammatory disease. Pain does not feel like it's moving around in knee. Reports that he is able to push through pain without difficulty, but states that it's annoying. Prior Treatments and Tests No imaging, previous PT Prior Functional Status Baseline Function- ADL's Independent Baseline Function- Mobility Independent Baseline Function- Recreation/Hobbies Exercise/weight lifting 5x/wk (combo leg, arm, back days), running as exercise prn Current Functional Impairments (Reported) Functional Limitations- Recreation/ currently limiting physical Hobbies activity unless necessary for work PT-OP-C Subjective Start: 04/17/23 18:16 Freq: Status: Active Protocol: Document 06/20/23 08:20 NM (Rec: 06/20/23 09:05 NM [id number]) OP-PT Subjective Patient Comments Patient Comments Pt reports that his knees feel more stable, less caving. He went hiking over weekend, states he could go hike most of way before feeling pain going up and down. He is still looking to get more stability in his B knees, reduce pain. He reports that his pain has improved by 30% in both knees. He continues to have pain with stairs, running, hiking, bending knees when working. PT-OP-D Balance Start: 04/17/23 18:16 Freq: Status: Active Protocol: Document 04/18/23 08:14 NM (Rec: 04/18/23 09:44 NM [id number]) Balance Tests Single Limb Standing Single Limb- Right 10 sec, increased sway, no pain Single Limb- Left 10 sec, increased sway, no pain Tandem Tandem Standing 5 sec EC, 20 sec EO before LOB PT-OP-E Functional Tests Start: 04/17/23 18:16 Freq: Status: Active Protocol: Document 04/18/23 08:14 NM (Rec: 04/18/23 09:44 NM [id number]) Functional Tests Squat Test Score 10 Comments up and down pain, valgus, dec DF, Single Leg Squat Test Score 1 ea Comment deep pistol; valgus B, dec DF Other Eccentric step down Name of Test 4 step Comment B knee valgus, pronation, trendelenburg Hop Name of Test double leg hop; single leg hop Score pain with landing double hop; single leg hop pain with ascend/landing Comment lands with valgus on all attempts, pronation at ankle, hip drop PT-OP-F Manual Assessment Start: 04/17/23 18:16 Freq: Status: Active Protocol: Document 04/18/23 08:14 NM (Rec: 04/18/23 09:44 NM [id number]) Manual Assessments Soft Tissue Assessment Soft Tissue Mobility Assessment Decreased hamstring length bilaterally; not formally measured Joint Mobility Assessment Joint Mobility Assessment No B knee instability, no pain with tibial IR/ER. Decreased B hip AROM and PROM. Slight lateral patellar tracking with short and long sitting knee ext, decreased superior translation in sitting. B knee crepitus with repeated knee flex/ext PT-OP-G Mobility & Gait Start: 04/17/23 18:16 Freq: Status: Active Protocol: Document 04/18/23 08:14 NM (Rec: 04/18/23 09:44 NM [id number]) OP Gait Assessment Gait Gait Assistance Required: Independent Distance (Feet) 200 Assistive Devices Assistive Device None Comments Gait Comments Narrow stance. Increased pronation with gait, B foot ER in stance and during swing. Early toe off. Stair Climbing Evaluation Evaluation Level of Assist On Stairs Independent Devices Stair Climbing Assistive Devices None Technique/Endurance Stair Climbing Direction Ascend and Descend Stair Climbing Technique Step Over Step Number of Steps Climbed 4 Stair Climbing Set # Repetitions (reps) 1 Comments Stair Climbing Comments Anterior knee pain with descent, knee valgus and foot pronation bilaterally PT-OP-J Posture/Palpation/Skin Start: 04/17/23 18:16 Freq: Status: Active Protocol: Document 04/18/23 08:14 NM (Rec: 04/18/23 09:44 NM [id number]) Posture Evaluation Position Standing Evaluation View posterior, lateral Head/C-Spine Posture Forward Head T-Spine Posture Increased Kyphosis L-Spine Posture Increased Lordosis Shoulder Posture (L) Rounded,(R) Rounded Scapula Posture (L) Protracted,(R) Protracted Arm Posture (L) Internally Rotated,(R) Internally Rotated Pelvis Posture Anteriorly Tilted Weight Distribution Balanced Hip Posture (L) Externally Rotated,(R) Externally Rotated Knee Posture (L) Genu Valgus,(R) Genu Valgus Patellar Posture (L) Superior,(R) Superior,(L) Laterally Tilted,(R) Laterally Tilted Ankle/Foot Posture (L) Pronated,(R) Pronated Palpation Assessment Location R knee Palpation Location patella, fibula, joint line, tibia, medial and lateral condyles Palpation Findings Tenderness Palpation Details Tenderness along superomedial patella, worse after resisted extension; minimally tender to palpation. No other tenderness noted along patella , joint lines, tibia, femoral condyles. hips not tender to palpation L knee Palpation Location patella, fibula, joint line, tibia, medial and lateral condyles Palpation Findings Tenderness Palpation Details Tenderness along superomedial patella, worse after resisted extension; minimally tender to palpation. No other tenderness noted along patella , joint lines, tibia, femoral condyles. hips not tender to palpation Skin Assessment Other Assessments Skin Assessment Comments No swelling noted in B knees PT-OP-K Range of Motion Start: 04/17/23 18:16 Freq: Status: Active Protocol: Document 06/20/23 08:20 NM (Rec: 06/20/23 09:05 NM [id number]) Knee Goniometric Range of Motion Knee Right Flexion Active (degrees) 145 Flexion Passive (degrees) 147 Extension Active (degrees) 0 Hyper-Extension Active 4 Comments No pain with active flex/ext translation Left Flexion Active (degrees) 140 Flexion Passive (degrees) 145 Extension Active (degrees) 0 Hyper-Extension Active 5 Comments No pain with active flex/ext translation PT-OP-L Special Tests Start: 04/17/23 18:16 Freq: Status: Active Protocol: Document 04/18/23 08:14 NM (Rec: 04/18/23 09:44 NM [id number]) Special Tests Hip Special Tests scour Test Results - Comments bilaterally Labrum Test Results - Comments anterior and posterior labral tests; bilaterally SITA Test Results - Comments decreased mobility but not painful; bilaterally FADIR Test Results - Comments bilaterally Knee Special Tests Patellar Grind Test Test Results + Marlin Test Test Results - Comments bilaterally Posterior Sag Test Results - Comments bilaterally Posterior Draw Test Results - Comments bilaterally George Test Results - Comments bilaterally Anterior Draw Test Results - Comments bilaterally Varus Test Results - Comments 0 and 30 deg; bilaterally Valgus Test Results - Comments 0 and 30 deg; bilaterally PT-OP-M Strength Start: 04/17/23 18:16 Freq: Status: Active Protocol: Document 06/20/23 08:20 NM (Rec: 06/20/23 09:05 NM [id number]) Hip Strength Hip Manual Muscle Testing Right Flexion (L2) 5 Normal Extension (S1) 4+ Good+ Abduction 4+ Good+ Adduction 5 Normal External Rotation 5 Normal Internal Rotation 5 Normal Comments IE: 4-/5 MMT flex/abd/ext, 4/5 for add/IR/ER 05/22/23: 4/5 hip flex, 4+/5 for ext/abd 06/20/23: 4+/5 for hip abd/ext, 5/5 for all others Left Flexion (L2) 5 Normal Extension (S1) 4+ Good+ Abduction 4+ Good+ Adduction 5 Normal External Rotation 5 Normal Internal Rotation 5 Normal Comments IE: 4-/5 flex/ext/abd, 4/5 for ER/IR/ADD 05/22/23: 4/5 hip flex/abd, 4+/ 5 ext 06/20/23: 4+/5 for hip abd/ext, 5/5 for all others Knee Strength Knee Manual Muscle Testing Right Flexion (S2) 4+ Good+ Extension (L3) 4+ Good+ Comments IE: 4+/5, Pain with resisted extension 05/22/23: 4+/5 MMT, no pain 06/20/23: 4+/5, no pain Left Flexion (S2) 4+ Good+ Extension (L3) 4+ Good+ Comments IE: 4+/5, Pain with resisted extension 05/22/23: no pain, 4+/5 06/20/23: 4+/5, no pain PT-OP-Q Treatments Start: 04/17/23 18:16 Freq: Status: Active Protocol: Document 06/20/23 08:20 NM (Rec: 06/20/23 09:05 NM [id number]) Therapeutic Exercises Standing Exercises single leg squat Standing Exercise Name 1. w/ 2 finger support on chair, 2. eccentric single leg chair taps Side bilateral Resistance 2. lvl 6 bands for eccentric UE support Equipment Used mesh chair Reps/Minutes 1. 1x10, 2. 2x8 to mesh chair (R more challenged) Comments mild R knee pain w/ ext on eccentrics, cued lvl hips, limit depth valgus eccentric step down Standing Exercise Name 1. 4 step down, 2. MAP stairs 6 step up/down for goal Side bilateral Resistance AROM Equipment Used no hand support Reps/Minutes 1. 2x8, 2. 1 set (14 stairs) w / pain 1/10 R knee Comments demo crepitus/grinding BLE, states 0.5/10 pain calf stretches on step Standing Exercise Name 1. Gastroc, 2. soleus Side bilateral Equipment Used staggered stance Reps/Minutes 1x60 ea Comments cued heel flat dorsiflexion mobilization Side bilateral Resistance AROM Equipment Used 24 step Reps/Minutes 10x5 Comments pain free, cued heel stays flat Neuro Re-Education Treatment Balance Activities BOSU squat Details black side up Surface unstable Comments 1. squat, 1x10 Cued ant weight shift, less PHILIP on heels, no knee valgus 2. ball toss in squat hold w/ chest pass, 2 minutes 3. ball toss w/ bounce pass in squat hold, 2 minutes Cued to maintain equal PHILIP, shift weight off heels for more anterior and even weight bearing Self-Care/Home Management Treatment Education Patient Education Home Exercise Program Other Education HEP: no handout issued because already on HEP, but verbally instructed pt to perform calf stretch more frequently during HEP PT-OP-T Assessment and Plan Start: 04/17/23 18:16 Freq: Status: Active Protocol: Document 06/20/23 08:20 NM (Rec: 06/20/23 09:05 NM [id number]) Physical Therapy Assessment Goals Four Impairment strength Impairment B hip flex, ext, abd 4-/5 MMT Short Term Goal (STG) Pt will increase B hip flex, ext, and abd MMT to at least 4 /5 in order to demonstrate improved strength required for squats, stairs, and other functional activities STG Duration 5 weeks [facility] Skilled Nursing Goal (LTG) Pt will increase B hip flex, ext, and abd MMT to at least 5 /5 in order to demonstrate improved strength required for squats, stairs, and other functional activities 06/20/23: MET: 4+/5 for hip abd /ext, 5/5 for hip flex/ER/IR LTG Duration 10 weeks MET, GOAL UPDATED Three Impairment HEP Impairment not performing HEP or daily exercise program Short Term Goal (STG) Pt will report compliance with HEP at least 3x/wk in order to demonstrate return to activity and to maximize gains made during PT sessions 05/22/23: 4-5x/wk STG Duration 5 weeks MET [facility] [employer] Tech Goal (LTG) Pt will report at least 50% return to prior level of workouts 3x/wk in order to demonstrate return to activity , improved pain management, and maintenance program for independent exercise. 06/20/23: working out 2x/wk, less than 50% but improved since IE LTG Duration 10 weeks PROGRESSING Two Impairment function Impairment 10 B squats painful with excess knee valgus and pronation Short Term Goal (STG) Pt will perform at least 10 bilateral squats without pain or compensation in order to demonstrate improved quad control and glute activation for functional activities. 05/22/23: 10 bilateral squats w /o pain or compensation using hip hinge STG Duration 5 weeks [facility] Nursing Goal (LTG) Pt will be able to perform at least 10 single leg squats without pain or compensation in order to demonstrate improved quad control and glute activation for functional activities. 06/20/23: able to perform 10 single leg squats with pain <1 /10, but demonstrates compensations with knee valgus melissa with increased depth, decreased ankle dorsiflexion, and excessive knee over toe with slight hip rotation (R side only) LTG Duration 10 weeks PROGRESSING, NOT MET One Impairment function Short Term Goal (STG) Pt will perform at least 10 eccentric step downs without compensation and reports of <3 /10 B knee pain in order to demonstrate improved hip strength and quad control 05/22/23: able to perform 10 step downs eccentric from 6 step with pain 1/10 L knee, 2/ 10 R knee before taping, 1/10 R knee with taping and 0/10 L knee with taping STG Duration 5 weeks MET Cat Scan Tech Goal (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 He reports R knee pain only with increased depth on single leg squats and mild anterior knee pain with eccentric step downs /descending stairs. Pt cued during step downs and stairs with tactile and verbal cues to maintain knee alignment behind toes, more weight toward heels. Pt limited by heel cord length, which contribute to excessive anterior knee translation. Continued with knee stabilty exercises on unstable surface. Pt requires moderate cues to shift PHILIP forward and to limit knee valgus while on unstable surface. Physical Therapy Plan Frequency and Duration Frequency of Treatment 1-2x/wk Duration of treatment (weeks) 12 Plan of Care Start Date 06/20/23 Plan of Care End Date 09/13/23 Therapeutic Interventions Therapeutic Interventions Balance Training,Coordination Training,Gait Training,Home Exercise Program,Joint Mobilizations,Manual Therapy, Neuromuscular Re-education, Orthotic/Prosthetic Management ,Patient/Caregiver Education, Self-Care/Home Management,Soft Tissue Mobilization,Taping, Therapeutic Activities, Therapeutic Exercises Modalities Biofeedback,Cold Pack/Ice Massage,Electric Stimulation, Hot Packs,Traction- Mechanical ,Ultrasound,Vasopneumatic Devices Next Visit Focus/Plan Next Note Type Treatment Note Next Visit Plan Next session: review 4-6 eccentrics step down, rear elevated bosu squat, leg press , slider, single leg on unstable surface Transition into single leg stability, cont glute strengthening; trial leg press Next session: review lateral touch down 6, trial leg press , bosu squat vs split squat, eccentric step down 4 with slower form, tape prn Remind about auth Next tx: LAQ/quad isometrics in midrange (progress as tolerated)- should be pain free. Progress hip abd/glute strengthening/(trial/review SL hip abd if not do well with steps/clams). Roll out TFL/ glute (ITB) and strengthen. Progress squat with good mechanics and eventually progress to leg press. Possibly trial of mini step up 2 or 4 inch step without pain , quad isometrics, hip strengthening, Manual prn: STM, patellar mobilizations, PN in 2 visits
--- NOTE | 2023-06-20 13:00 | PT.OPPOC ---
Physical, Occupational & Speech Therapy At [facility] Current Diagnoses Pain in unspecified knee (06/20/23) Other abnormalities of gait and mobility (06/20/23) Weakness (06/20/23) Visit Care Team Role Provider Type THADDEUS Garcia Attending Provider Non-Staff Family Provider Primary Care Provider Referring Provider Specialty: Nursing Address: [facility], Email: Plan Of Care PT-OP-T Assessment and Plan Start: 04/17/23 18:16 Freq: Status: Active Protocol: Document 06/20/23 08:20 NM (Rec: 06/20/23 09:05 NM [id number]) Physical Therapy Assessment Goals Four Impairment strength Impairment B hip flex, ext, abd 4-/5 MMT Short Term Goal (STG) Pt will increase B hip flex, ext, and abd MMT to at least 4 /5 in order to demonstrate improved strength required for squats, stairs, and other functional activities STG Duration 5 weeks MET Nursing Home Goal (LTG) Pt will increase B hip flex, ext, and abd MMT to at least 5 /5 in order to demonstrate improved strength required for squats, stairs, and other functional activities 06/20/23: MET: 4+/5 for hip abd /ext, 5/5 for hip flex/ER/IR LTG Duration 10 weeks MET, GOAL UPDATED Three Impairment HEP Impairment not performing HEP or daily exercise program Short Term Goal (STG) Pt will report compliance with HEP at least 3x/wk in order to demonstrate return to activity and to maximize gains made during PT sessions 05/22/23: 4-5x/wk STG Duration 5 weeks MET Nursing Home Goal (LTG) Pt will report at least 50% return to prior level of workouts 3x/wk in order to demonstrate return to activity , improved pain management, and maintenance program for independent exercise. 06/20/23: working out 2x/wk, less than 50% but improved since IE LTG Duration 10 weeks PROGRESSING Two Impairment function Impairment 10 B squats painful with excess knee valgus and pronation Short Term Goal (STG) Pt will perform at least 10 bilateral squats without pain or compensation in order to demonstrate improved quad control and glute activation for functional activities. 05/22/23: 10 bilateral squats w /o pain or compensation using hip hinge STG Duration 5 weeks MET Nursing Home Goal (LTG) Pt will be able to perform at least 10 single leg squats without pain or compensation in order to demonstrate improved quad control and glute activation for functional activities. 06/20/23: able to perform 10 single leg squats with pain <1 /10, but demonstrates compensations with knee valgus melissa with increased depth, decreased ankle dorsiflexion, and excessive knee over toe with slight hip rotation (R side only) LTG Duration 10 weeks PROGRESSING, NOT MET One Impairment function Short Term Goal (STG) Pt will perform at least 10 eccentric step downs without compensation and reports of <3 /10 B knee pain in order to demonstrate improved hip strength and quad control 05/22/23: able to perform 10 step downs eccentric from 6 step with pain 1/10 L knee, 2/ 10 R knee before taping, 1/10 R knee with taping and 0/10 L knee with taping STG Duration 5 weeks [facility] Nursing Home Goal (LTG) Pt will be able to perform at least 12 stairs without reports of increased pain in order to demonstrate improved hip strength and quad control 06/20/23: 14 stairs with 1/10 R knee pain; demos decreased hip strength, ankle mobility, no valgus; 4 eccentric step down LTG Duration 10 weeks PROGRESSING, NOT MET Assessment Summary Assessment Pt has been seen x10 times since beginning PT in March 2023. He reports 30% improvement in symptoms, but continues to have pain with hiking, stairs, and knee flexion. Pt reports less knee pain bilaterally. Pt would benefit from skilled PT for BLE strengthening, stabilization, and to improve pain symptoms through activity modification and body mechanics training. He is progressing toward goals; he continues to demonstrate compensations indicating decreased ankle mobility/hip strength with squats. He has full B knee motion. Hip and knee strength during testing has improved but is still decreased in extension and abduction. Pt has crepitus and frequent grinding with squats and knee flexion. He has been minimally compliant with HEP, but is very active. Due to continued knee pain with functional activities and compensations during stairs/ squats, pt would benefit from skilled PT in order to improve activity tolerance and symptom management. Physical Therapy Plan Frequency and Duration Frequency of Treatment 1-2x/wk Duration of treatment (weeks) 12 Plan of Care Start Date 06/20/23 Plan of Care End Date 09/13/23 Therapeutic Interventions Therapeutic Interventions Balance Training,Coordination Training,Gait Training,Home Exercise Program,Joint Mobilizations,Manual Therapy, Neuromuscular Re-education, Orthotic/Prosthetic Management ,Patient/Caregiver Education, Self-Care/Home Management,Soft Tissue Mobilization,Taping, Therapeutic Activities, Therapeutic Exercises Modalities Biofeedback,Cold Pack/Ice Massage,Electric Stimulation, Hot Packs,Traction- Mechanical ,Ultrasound,Vasopneumatic Devices Next Visit Focus/Plan Next Note Type Treatment Note Next Visit Plan Next session: review 4-6 eccentrics step down, rear elevated bosu squat, leg press , slider, single leg on unstable surface Transition into single leg stability, cont glute strengthening; trial leg press Next session: review lateral touch down 6, trial leg press , bosu squat vs split squat, eccentric step down 4 with slower form, tape prn Remind about auth Next tx: LAQ/quad isometrics in midrange (progress as tolerated)- should be pain free. Progress hip abd/glute strengthening/(trial/review SL hip abd if not do well with steps/clams). Roll out TFL/ glute (ITB) and strengthen. Progress squat with good mechanics and eventually progress to leg press. Possibly trial of mini step up 2 or 4 inch step without pain , quad isometrics, hip strengthening, Manual prn: STM, patellar mobilizations, Plan of Care Dates Plan of Care Start Date 06/20/23 Plan of Care End Date 09/13/23 Electronically Signed by: Emily Shen, PT 06/20/23 1300 If you are in agreement with this Plan of Care, please return a signed and dated copy. I have reviewed this Plan of Care and certify that the skilled therapy services above are required to meet the patient?s needs. Physician Signature Date Printed Name and Credentials Clinical Instructor Signature Printed Name and Credentials
--- NOTE | 2023-07-12 12:07 | PT.OTN ---
Current Diagnoses Pain in unspecified knee (07/12/23) Other abnormalities of gait and mobility (07/12/23) Weakness (07/12/23) Physical Therapy Treatment Note PT-OP-A Visit Information Start: 04/17/23 18:16 Freq: Status: Active Protocol: Document 07/12/23 11:19 NM (Rec: 07/12/23 12:06 NM [id number]) Out-Patient Physical Therapy Visit Information Visit Information Visit Type Treatment Note Visit Start Time 11:19 Visit Stop Time 12:00 Visit Number 13 PT-OP-B Current Condition Start: 04/17/23 18:16 Freq: Status: Active Protocol: Document 04/18/23 08:14 NM (Rec: 04/18/23 09:44 NM [id number]) Current Condition History of Current Condition Onset Date 2 years Current Complaints knee pain History of Current Condition Pt presents with B knee pain. Pt also has B wrist pain, R hip, and low back pain; reports pain not consistent. Pt doesn't have a specific known onset or mechanism of injury for knee pain, but believes that he was performing strenous workouts in the past which likely contributed (e.g. heavy weight lifting including squats, deadlift). Reports has not improved over time. Currently, limiting activity due to discomfort. No reports of instability, locking, clicking . No hx of knee injuries, surgeries. No hx hip, ankle, or back injuries. Family hx of RA (mother, onset 40's); no known inflammatory disease. Pain does not feel like it's moving around in knee. Reports that he is able to push through pain without difficulty, but states that it's annoying. Prior Treatments and Tests No imaging, previous PT Prior Functional Status Baseline Function- ADL's Independent Baseline Function- Mobility Independent Baseline Function- Recreation/Hobbies Exercise/weight lifting 5x/wk (combo leg, arm, back days), running as exercise prn Current Functional Impairments (Reported) Functional Limitations- Recreation/ currently limiting physical Hobbies activity unless necessary for work PT-OP-C Subjective Start: 04/17/23 18:16 Freq: Status: Active Protocol: Document 07/12/23 11:19 NM (Rec: 07/12/23 12:06 NM [id number]) OP-PT Subjective Patient Comments Patient Comments Pt reports that he still has nagging pain. However, he feels more stable and states knees do not hurt as much. He continues to report that he has pain with hiking and running. He ran 1.5 miles about 2 weeks ago and states that he had increased B knee pain that lasts about 2-3 days above and below patella. Overall, pt reports that his R knee is bothering him more than his L, states usually no L knee pain PT-OP-D Balance Start: 04/17/23 18:16 Freq: Status: Active Protocol: Document 04/18/23 08:14 NM (Rec: 04/18/23 09:44 NM [id number]) Balance Tests Single Limb Standing Single Limb- Right 10 sec, increased sway, no pain Single Limb- Left 10 sec, increased sway, no pain Tandem Tandem Standing 5 sec EC, 20 sec EO before LOB PT-OP-E Functional Tests Start: 04/17/23 18:16 Freq: Status: Active Protocol: Document 04/18/23 08:14 NM (Rec: 04/18/23 09:44 NM [id number]) Functional Tests Squat Test Score 10 Comments up and down pain, valgus, dec DF, Single Leg Squat Test Score 1 ea Comment deep pistol; valgus B, dec DF Other Eccentric step down Name of Test 4 step Comment B knee valgus, pronation, trendelenburg Hop Name of Test double leg hop; single leg hop Score pain with landing double hop; single leg hop pain with ascend/landing Comment lands with valgus on all attempts, pronation at ankle, hip drop PT-OP-F Manual Assessment Start: 04/17/23 18:16 Freq: Status: Active Protocol: Document 04/18/23 08:14 NM (Rec: 04/18/23 09:44 NM [id number]) Manual Assessments Soft Tissue Assessment Soft Tissue Mobility Assessment Decreased hamstring length bilaterally; not formally measured Joint Mobility Assessment Joint Mobility Assessment No B knee instability, no pain with tibial IR/ER. Decreased B hip AROM and PROM. Slight lateral patellar tracking with short and long sitting knee ext, decreased superior translation in sitting. B knee crepitus with repeated knee flex/ext PT-OP-G Mobility & Gait Start: 04/17/23 18:16 Freq: Status: Active Protocol: Document 04/18/23 08:14 NM (Rec: 04/18/23 09:44 NM [id number]) OP Gait Assessment Gait Gait Assistance Required: Independent Distance (Feet) 200 Assistive Devices Assistive Device None Comments Gait Comments Narrow stance. Increased pronation with gait, B foot ER in stance and during swing. Early toe off. Stair Climbing Evaluation Evaluation Level of Assist On Stairs Independent Devices Stair Climbing Assistive Devices None Technique/Endurance Stair Climbing Direction Ascend and Descend Stair Climbing Technique Step Over Step Number of Steps Climbed 4 Stair Climbing Set # Repetitions (reps) 1 Comments Stair Climbing Comments Anterior knee pain with descent, knee valgus and foot pronation bilaterally PT-OP-J Posture/Palpation/Skin Start: 04/17/23 18:16 Freq: Status: Active Protocol: Document 04/18/23 08:14 NM (Rec: 04/18/23 09:44 NM [id number]) Posture Evaluation Position Standing Evaluation View posterior, lateral Head/C-Spine Posture Forward Head T-Spine Posture Increased Kyphosis L-Spine Posture Increased Lordosis Shoulder Posture (L) Rounded,(R) Rounded Scapula Posture (L) Protracted,(R) Protracted Arm Posture (L) Internally Rotated,(R) Internally Rotated Pelvis Posture Anteriorly Tilted Weight Distribution Balanced Hip Posture (L) Externally Rotated,(R) Externally Rotated Knee Posture (L) Genu Valgus,(R) Genu Valgus Patellar Posture (L) Superior,(R) Superior,(L) Laterally Tilted,(R) Laterally Tilted Ankle/Foot Posture (L) Pronated,(R) Pronated Palpation Assessment Location R knee Palpation Location patella, fibula, joint line, tibia, medial and lateral condyles Palpation Findings Tenderness Palpation Details Tenderness along superomedial patella, worse after resisted extension; minimally tender to palpation. No other tenderness noted along patella , joint lines, tibia, femoral condyles. hips not tender to palpation L knee Palpation Location patella, fibula, joint line, tibia, medial and lateral condyles Palpation Findings Tenderness Palpation Details Tenderness along superomedial patella, worse after resisted extension; minimally tender to palpation. No other tenderness noted along patella , joint lines, tibia, femoral condyles. hips not tender to palpation Skin Assessment Other Assessments Skin Assessment Comments No swelling noted in B knees PT-OP-K Range of Motion Start: 04/17/23 18:16 Freq: Status: Active Protocol: Document 06/20/23 08:20 NM (Rec: 06/20/23 09:05 NM [id number]) Knee Goniometric Range of Motion Knee Right Flexion Active (degrees) 145 Flexion Passive (degrees) 147 Extension Active (degrees) 0 Hyper-Extension Active 4 Comments No pain with active flex/ext translation Left Flexion Active (degrees) 140 Flexion Passive (degrees) 145 Extension Active (degrees) 0 Hyper-Extension Active 5 Comments No pain with active flex/ext translation PT-OP-L Special Tests Start: 04/17/23 18:16 Freq: Status: Active Protocol: Document 04/18/23 08:14 NM (Rec: 04/18/23 09:44 NM [id number]) Special Tests Hip Special Tests scour Test Results - Comments bilaterally Labrum Test Results - Comments anterior and posterior labral tests; bilaterally SITA Test Results - Comments decreased mobility but not painful; bilaterally FADIR Test Results - Comments bilaterally Knee Special Tests Patellar Grind Test Test Results + Marlin Test Test Results - Comments bilaterally Posterior Sag Test Results - Comments bilaterally Posterior Draw Test Results - Comments bilaterally George Test Results - Comments bilaterally Anterior Draw Test Results - Comments bilaterally Varus Test Results - Comments 0 and 30 deg; bilaterally Valgus Test Results - Comments 0 and 30 deg; bilaterally PT-OP-M Strength Start: 04/17/23 18:16 Freq: Status: Active Protocol: Document 06/20/23 08:20 NM (Rec: 06/20/23 09:05 NM [id number]) Hip Strength Hip Manual Muscle Testing Right Flexion (L2) 5 Normal Extension (S1) 4+ Good+ Abduction 4+ Good+ Adduction 5 Normal External Rotation 5 Normal Internal Rotation 5 Normal Comments IE: 4-/5 MMT flex/abd/ext, 4/5 for add/IR/ER 05/22/23: 4/5 hip flex, 4+/5 for ext/abd 06/20/23: 4+/5 for hip abd/ext, 5/5 for all others Left Flexion (L2) 5 Normal Extension (S1) 4+ Good+ Abduction 4+ Good+ Adduction 5 Normal External Rotation 5 Normal Internal Rotation 5 Normal Comments IE: 4-/5 flex/ext/abd, 4/5 for ER/IR/ADD 05/22/23: 4/5 hip flex/abd, 4+/ 5 ext 06/20/23: 4+/5 for hip abd/ext, 5/5 for all others Knee Strength Knee Manual Muscle Testing Right Flexion (S2) 4+ Good+ Extension (L3) 4+ Good+ Comments IE: 4+/5, Pain with resisted extension 05/22/23: 4+/5 MMT, no pain 06/20/23: 4+/5, no pain Left Flexion (S2) 4+ Good+ Extension (L3) 4+ Good+ Comments IE: 4+/5, Pain with resisted extension 05/22/23: no pain, 4+/5 06/20/23: 4+/5, no pain PT-OP-Q Treatments Start: 04/17/23 18:16 Freq: Status: Active Protocol: Document 07/12/23 11:19 NM (Rec: 07/12/23 12:06 NM [id number]) Cardio Equipment Elliptical Duration (Minutes) 3 Resistance 0 Other warm up; cued more lateral motion, reports pain if doesn' t hold Therapeutic Exercises Sidelying Exercises side plank Sidelying Exercise Name 1. with hip abd clam (bent knee) isac in modified plank, 2. hip CARs Side bilateral Resistance lvl 3 band around thighs Reps/Minutes 1. 2x30 ea, 2. 1x10 ea Comments cued feet together during clam ; pain free, medium hard Standing Exercises single leg squat Standing Exercise Name single leg squat to chair ( eccentric) Side bilateral Equipment Used mesh chair, mirror for visual cues Reps/Minutes 2x10 ea Comments crepitus; pain free; improved knee, min valgus-worse w/ fatigue squats Standing Exercise Name heel elevated squats Side bilateral Resistance 10# tball Equipment Used VALERIA for foot elevation Reps/Minutes 2x15 Comments states pain free; knees aligned w/ ankles lunge Standing Exercise Name curtsey lunge > step up w/ opp hip flex Side bilateral Equipment Used 12 step Reps/Minutes 2x10 Comments mild R knee pain unless cue for no knee valgus Neuro Re-Education Treatment Balance Activities hops Comments 1. B hops Cued for soft landing. Emphasis on midfoot landing, soft landing, squat start and landing, 1x10 2. jump rope hops double leg Pain free, 2x30 3. Fwd/bwd hops, 1x30 Reports increase in pain above patella 4. Lateral line hops Pain free, 1x30 2. trialed single leg hops, but painful so d/c Self-Care/Home Management Treatment Education Patient Education Home Exercise Program Other Education HEP: side plank with clams isometric, eccentric single leg squat to chair PT-OP-T Assessment and Plan Start: 04/17/23 18:16 Freq: Status: Active Protocol: Document 07/12/23 11:19 NM (Rec: 07/12/23 12:06 NM [id number]) Physical Therapy Assessment Goals Four Impairment strength Impairment B hip flex, ext, abd 4-/5 MMT Short Term Goal (STG) Pt will increase B hip flex, ext, and abd MMT to at least 4 /5 in order to demonstrate improved strength required for squats, stairs, and other functional activities STG Duration 5 weeks MET Retirement Goal (LTG) Pt will increase B hip flex, ext, and abd MMT to at least 5 /5 in order to demonstrate improved strength required for squats, stairs, and other functional activities 06/20/23: MET: 4+/5 for hip abd /ext, 5/5 for hip flex/ER/IR LTG Duration 10 weeks MET, GOAL UPDATED Three Impairment HEP Impairment not performing HEP or daily exercise program Short Term Goal (STG) Pt will report compliance with HEP at least 3x/wk in order to demonstrate return to activity and to maximize gains made during PT sessions 05/22/23: 4-5x/wk STG Duration 5 weeks 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 06/20/23: working out 2x/wk, less than 50% but improved since IE LTG Duration 10 weeks PROGRESSING Two Impairment function Impairment 10 B squats painful with excess knee valgus and pronation Short Term Goal (STG) Pt will perform at least 10 bilateral squats without pain or compensation in order to demonstrate improved quad control and glute activation for functional activities. 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 06/20/23: able to perform 10 single leg squats with pain <1 /10, but demonstrates compensations with knee valgus melissa with increased depth, decreased ankle dorsiflexion, and excessive knee over toe with slight hip rotation (R side only) LTG Duration 10 weeks PROGRESSING, NOT MET One Impairment function Short Term Goal (STG) Pt will perform at least 10 eccentric step downs without compensation and reports of <3 /10 B knee pain in order to demonstrate improved hip strength and quad control 05/22/23: able to perform 10 step downs eccentric from 6 step with pain 1/10 L knee, 2/ 10 R knee before taping, 1/10 R knee with taping and 0/10 L knee with taping STG Duration 5 weeks 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 Trialed hopping and jumping. Pt able to tolerate small bilateral hops especially laterally but not forward or single leg hops. Continued with single leg strengthening with addition of curtsey lunge , step up, and single leg squat. Pt demos improved knee stability and less valgus with squat. He continues to have crepitus with end range flexion. Pt primarily gets pain when present at quad and patellar tendons, worse with rotational activities. Pt would benefit from skilled PT for body mechanics training, stabilization, and progressive tendon loading to improve symptom management and activity tolerance. Physical Therapy Plan Frequency and Duration Frequency of Treatment 1-2x/wk Duration of treatment (weeks) 12 Plan of Care Start Date 06/20/23 Plan of Care End Date 09/13/23 Therapeutic Interventions Therapeutic Interventions Balance Training,Coordination Training,Gait Training,Home Exercise Program,Joint Mobilizations,Manual Therapy, Neuromuscular Re-education, Orthotic/Prosthetic Management ,Patient/Caregiver Education, Self-Care/Home Management,Soft Tissue Mobilization,Taping, Therapeutic Activities, Therapeutic Exercises Modalities Biofeedback,Cold Pack/Ice Massage,Electric Stimulation, Hot Packs,Traction- Mechanical ,Ultrasound,Vasopneumatic Devices Next Visit Focus/Plan Next Note Type Treatment Note Next Visit Plan Load patellar/quad tendon, review single leg squat/RDL/ leg press. Side plank, reverse nordic, skater lunge Manual prn: STM, patellar mobilizations,
--- NOTE | 2023-07-15 10:01 | PT-OP ANOTE ---
NO SHOW- PT called at 1000 but unable to leave a voicemail per message on phone that pt is unavailable at this time. Pt confirmed appt via text on 07/11
--- NOTE | 2023-07-23 08:58 | PT.OTN ---
Current Diagnoses Pain in unspecified knee (07/23/23) Other abnormalities of gait and mobility (07/23/23) Weakness (07/23/23) Physical Therapy Treatment Note PT-OP-A Visit Information Start: 04/17/23 18:16 Freq: Status: Active Protocol: Document 07/23/23 08:20 SP (Rec: 07/23/23 09:03 SP [id number]) Out-Patient Physical Therapy Visit Information Visit Information Visit Type Treatment Note Visit Start Time 08:20 Visit Stop Time 08:58 Visit Number 14 Number of TATTOOER Visits 1 Evaluation Information Evaluation Date 04/18/23 PT-OP-B Current Condition Start: 04/17/23 18:16 Freq: Status: Active Protocol: Document 04/18/23 08:14 NM (Rec: 04/18/23 09:44 NM [id number]) Current Condition History of Current Condition Onset Date 2 years Current Complaints knee pain History of Current Condition Pt presents with B knee pain. Pt also has B wrist pain, R hip, and low back pain; reports pain not consistent. Pt doesn't have a specific known onset or mechanism of injury for knee pain, but believes that he was performing strenous workouts in the past which likely contributed (e.g. heavy weight lifting including squats, deadlift). Reports has not improved over time. Currently, limiting activity due to discomfort. No reports of instability, locking, clicking . No hx of knee injuries, surgeries. No hx hip, ankle, or back injuries. Family hx of RA (mother, onset 40's); no known inflammatory disease. Pain does not feel like it's moving around in knee. Reports that he is able to push through pain without difficulty, but states that it's annoying. Prior Treatments and Tests No imaging, previous PT Prior Functional Status Baseline Function- ADL's Independent Baseline Function- Mobility Independent Baseline Function- Recreation/Hobbies Exercise/weight lifting 5x/wk (combo leg, arm, back days), running as exercise prn Current Functional Impairments (Reported) Functional Limitations- Recreation/ currently limiting physical Hobbies activity unless necessary for work PT-OP-C Subjective Start: 04/17/23 18:16 Freq: Status: Active Protocol: Document 07/23/23 08:20 SP (Rec: 07/23/23 09:03 SP [id number]) OP-PT Subjective Patient Comments Patient Comments Pt reports knees have been realitively good, but hasn't done any running and not really good with exercises home. PT-OP-D Balance Start: 04/17/23 18:16 Freq: Status: Active Protocol: Document 04/18/23 08:14 NM (Rec: 04/18/23 09:44 NM [id number]) Balance Tests Single Limb Standing Single Limb- Right 10 sec, increased sway, no pain Single Limb- Left 10 sec, increased sway, no pain Tandem Tandem Standing 5 sec EC, 20 sec EO before LOB PT-OP-E Functional Tests Start: 04/17/23 18:16 Freq: Status: Active Protocol: Document 04/18/23 08:14 NM (Rec: 04/18/23 09:44 NM [id number]) Functional Tests Squat Test Score 10 Comments up and down pain, valgus, dec DF, Single Leg Squat Test Score 1 ea Comment deep pistol; valgus B, dec DF Other Eccentric step down Name of Test 4 step Comment B knee valgus, pronation, trendelenburg Hop Name of Test double leg hop; single leg hop Score pain with landing double hop; single leg hop pain with ascend/landing Comment lands with valgus on all attempts, pronation at ankle, hip drop PT-OP-F Manual Assessment Start: 04/17/23 18:16 Freq: Status: Active Protocol: Document 04/18/23 08:14 NM (Rec: 04/18/23 09:44 NM [id number]) Manual Assessments Soft Tissue Assessment Soft Tissue Mobility Assessment Decreased hamstring length bilaterally; not formally measured Joint Mobility Assessment Joint Mobility Assessment No B knee instability, no pain with tibial IR/ER. Decreased B hip AROM and PROM. Slight lateral patellar tracking with short and long sitting knee ext, decreased superior translation in sitting. B knee crepitus with repeated knee flex/ext PT-OP-G Mobility & Gait Start: 04/17/23 18:16 Freq: Status: Active Protocol: Document 04/18/23 08:14 NM (Rec: 04/18/23 09:44 NM [id number]) OP Gait Assessment Gait Gait Assistance Required: Independent Distance (Feet) 200 Assistive Devices Assistive Device None Comments Gait Comments Narrow stance. Increased pronation with gait, B foot ER in stance and during swing. Early toe off. Stair Climbing Evaluation Evaluation Level of Assist On Stairs Independent Devices Stair Climbing Assistive Devices None Technique/Endurance Stair Climbing Direction Ascend and Descend Stair Climbing Technique Step Over Step Number of Steps Climbed 4 Stair Climbing Set # Repetitions (reps) 1 Comments Stair Climbing Comments Anterior knee pain with descent, knee valgus and foot pronation bilaterally PT-OP-J Posture/Palpation/Skin Start: 04/17/23 18:16 Freq: Status: Active Protocol: Document 04/18/23 08:14 NM (Rec: 04/18/23 09:44 NM [id number]) Posture Evaluation Position Standing Evaluation View posterior, lateral Head/C-Spine Posture Forward Head T-Spine Posture Increased Kyphosis L-Spine Posture Increased Lordosis Shoulder Posture (L) Rounded,(R) Rounded Scapula Posture (L) Protracted,(R) Protracted Arm Posture (L) Internally Rotated,(R) Internally Rotated Pelvis Posture Anteriorly Tilted Weight Distribution Balanced Hip Posture (L) Externally Rotated,(R) Externally Rotated Knee Posture (L) Genu Valgus,(R) Genu Valgus Patellar Posture (L) Superior,(R) Superior,(L) Laterally Tilted,(R) Laterally Tilted Ankle/Foot Posture (L) Pronated,(R) Pronated Palpation Assessment Location R knee Palpation Location patella, fibula, joint line, tibia, medial and lateral condyles Palpation Findings Tenderness Palpation Details Tenderness along superomedial patella, worse after resisted extension; minimally tender to palpation. No other tenderness noted along patella , joint lines, tibia, femoral condyles. hips not tender to palpation L knee Palpation Location patella, fibula, joint line, tibia, medial and lateral condyles Palpation Findings Tenderness Palpation Details Tenderness along superomedial patella, worse after resisted extension; minimally tender to palpation. No other tenderness noted along patella , joint lines, tibia, femoral condyles. hips not tender to palpation Skin Assessment Other Assessments Skin Assessment Comments No swelling noted in B knees PT-OP-K Range of Motion Start: 04/17/23 18:16 Freq: Status: Active Protocol: Document 06/20/23 08:20 NM (Rec: 06/20/23 09:05 NM [id number]) Knee Goniometric Range of Motion Knee Right Flexion Active (degrees) 145 Flexion Passive (degrees) 147 Extension Active (degrees) 0 Hyper-Extension Active 4 Comments No pain with active flex/ext translation Left Flexion Active (degrees) 140 Flexion Passive (degrees) 145 Extension Active (degrees) 0 Hyper-Extension Active 5 Comments No pain with active flex/ext translation PT-OP-L Special Tests Start: 04/17/23 18:16 Freq: Status: Active Protocol: Document 04/18/23 08:14 NM (Rec: 04/18/23 09:44 NM [id number]) Special Tests Hip Special Tests scour Test Results - Comments bilaterally Labrum Test Results - Comments anterior and posterior labral tests; bilaterally SITA Test Results - Comments decreased mobility but not painful; bilaterally FADIR Test Results - Comments bilaterally Knee Special Tests Patellar Grind Test Test Results + Marlin Test Test Results - Comments bilaterally Posterior Sag Test Results - Comments bilaterally Posterior Draw Test Results - Comments bilaterally George Test Results - Comments bilaterally Anterior Draw Test Results - Comments bilaterally Varus Test Results - Comments 0 and 30 deg; bilaterally Valgus Test Results - Comments 0 and 30 deg; bilaterally PT-OP-M Strength Start: 04/17/23 18:16 Freq: Status: Active Protocol: Document 06/20/23 08:20 NM (Rec: 06/20/23 09:05 NM [id number]) Hip Strength Hip Manual Muscle Testing Right Flexion (L2) 5 Normal Extension (S1) 4+ Good+ Abduction 4+ Good+ Adduction 5 Normal External Rotation 5 Normal Internal Rotation 5 Normal Comments IE: 4-/5 MMT flex/abd/ext, 4/5 for add/IR/ER 05/22/23: 4/5 hip flex, 4+/5 for ext/abd 06/20/23: 4+/5 for hip abd/ext, 5/5 for all others Left Flexion (L2) 5 Normal Extension (S1) 4+ Good+ Abduction 4+ Good+ Adduction 5 Normal External Rotation 5 Normal Internal Rotation 5 Normal Comments IE: 4-/5 flex/ext/abd, 4/5 for ER/IR/ADD 05/22/23: 4/5 hip flex/abd, 4+/ 5 ext 06/20/23: 4+/5 for hip abd/ext, 5/5 for all others Knee Strength Knee Manual Muscle Testing Right Flexion (S2) 4+ Good+ Extension (L3) 4+ Good+ Comments IE: 4+/5, Pain with resisted extension 05/22/23: 4+/5 MMT, no pain 06/20/23: 4+/5, no pain Left Flexion (S2) 4+ Good+ Extension (L3) 4+ Good+ Comments IE: 4+/5, Pain with resisted extension 05/22/23: no pain, 4+/5 06/20/23: 4+/5, no pain PT-OP-Q Treatments Start: 04/17/23 18:16 Freq: Status: Active Protocol: Document 07/23/23 08:20 SP (Rec: 07/23/23 09:03 SP [id number]) Cardio Equipment Elliptical Duration (Minutes) 4 Resistance 4 Other warm up, no pain Gym Equipment Shuttle Recovery jumps Details pnfree, cued eccentric ankle DF allow heel come down into knee/hip flexio Resistance 50# Reps/Time x15 Unilateral squat Details pain free, good form Resistance 100# (2 navy) Shuttle Recovery Platform Stable Reps/Time 2x15 B squat Details pain free after several reps; cued feet closer d/t knee valgus Resistance 150# (4 navy, 2 teal) Shuttle Recovery Platform Unstable Reps/Time x20 reps Therapeutic Exercises Standing Exercises single leg squat Standing Exercise Name single leg squat to chair ( eccentric) Side bilateral Resistance AROM>TB 32 Equipment Used mesh chair, mirror for visual cues Reps/Minutes 2x5 reps Comments crepitus; pain free; cued TA slow asc/ecc, min valgus-worse w/ fatigue squats Standing Exercise Name heel elevated>flat squats Side bilateral Resistance 10# on dowel Equipment Used VALERIA for foot elevation, mod> low>floor Reps/Minutes 2x15 VALERIA, x15 floor Comments states pain free; knees aligned w/ ankles Neuro Re-Education Treatment Balance Activities BOSU lunge Reps/Duration 3x8 reps Comments cued feet and knee // Front knee behind/with forefoot, use mirror self knee valgus corrections hops Comments 1. B hops Cued for soft landing. Emphasis on midfoot landing, soft landing, squat start and landing, 1x10 2. jump rope hops double leg Pain free, 2x30- not 07/22 3. Fwd/bwd hops, 1x30 Reports slight discomfor pain above patella last 2 reps 4. Lateral line hops Pain free, 1x30 2. trialed single leg hops 3x5 , initial valgus then corrects with cues and mirror assist PT-OP-T Assessment and Plan Start: 04/17/23 18:16 Freq: Status: Active Protocol: Document 07/23/23 08:20 SP (Rec: 07/23/23 09:03 SP [id number]) Physical Therapy Assessment Goals Four Impairment strength Impairment B hip flex, ext, abd 4-/5 MMT Short Term Goal (STG) Pt will increase B hip flex, ext, and abd MMT to at least 4 /5 in order to demonstrate improved strength required for squats, stairs, and other functional activities STG Duration 5 weeks MET [employer] Goal (LTG) Pt will increase B hip flex, ext, and abd MMT to at least 5 /5 in order to demonstrate improved strength required for squats, stairs, and other functional activities 06/20/23: MET: 4+/5 for hip abd /ext, 5/5 for hip flex/ER/IR LTG Duration 10 weeks MET, GOAL UPDATED Three Impairment HEP Impairment not performing HEP or daily exercise program Short Term Goal (STG) Pt will report compliance with HEP at least 3x/wk in order to demonstrate return to activity and to maximize gains made during PT sessions 05/22/23: 4-5x/wk STG Duration 5 weeks MET Nursing Home Goal (LTG) Pt will report at least 50% return to prior level of workouts 3x/wk in order to demonstrate return to activity , improved pain management, and maintenance program for independent exercise. 06/20/23: working out 2x/wk, less than 50% but improved since IE LTG Duration 10 weeks PROGRESSING Two Impairment function Impairment 10 B squats painful with excess knee valgus and pronation Short Term Goal (STG) Pt will perform at least 10 bilateral squats without pain or compensation in order to demonstrate improved quad control and glute activation for functional activities. 05/22/23: 10 bilateral squats w /o pain or compensation using hip hinge STG Duration 5 weeks MET [employer] Goal (LTG) Pt will be able to perform at least 10 single leg squats without pain or compensation in order to demonstrate improved quad control and glute activation for functional activities. 06/20/23: able to perform 10 single leg squats with pain <1 /10, but demonstrates compensations with knee valgus melissa with increased depth, decreased ankle dorsiflexion, and excessive knee over toe with slight hip rotation (R side only) LTG Duration 10 weeks PROGRESSING, NOT MET One Impairment function Short Term Goal (STG) Pt will perform at least 10 eccentric step downs without compensation and reports of <3 /10 B knee pain in order to demonstrate improved hip strength and quad control 05/22/23: able to perform 10 step downs eccentric from 6 step with pain 1/10 L knee, 2/ 10 R knee before taping, 1/10 R knee with taping and 0/10 L knee with taping STG Duration 5 weeks MET [employer] Goal (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 Continue jumping and hopping, almost no pain with use mirror and cuing trunk over PHILIP, soft eccentric landing onto forefoot into ankle/knee flexion. Only slight pain reported initial push off SL jump but with use mirror able self corrections. Physical Therapy Plan Frequency and Duration Frequency of Treatment 1-2x/wk Duration of treatment (weeks) 12 Plan of Care Start Date 06/20/23 Plan of Care End Date 09/13/23 Therapeutic Interventions Therapeutic Interventions Balance Training,Coordination Training,Gait Training,Home Exercise Program,Joint Mobilizations,Manual Therapy, Neuromuscular Re-education, Orthotic/Prosthetic Management ,Patient/Caregiver Education, Self-Care/Home Management,Soft Tissue Mobilization,Taping, Therapeutic Activities, Therapeutic Exercises Modalities Biofeedback,Cold Pack/Ice Massage,Electric Stimulation, Hot Packs,Traction- Mechanical ,Ultrasound,Vasopneumatic Devices Next Visit Focus/Plan Next Note Type Treatment Note Next Visit Plan Load patellar/quad tendon, review single leg squat/RDL/ leg press. Side plank, reverse nordic, skater lunge Manual prn: STM, patellar mobilizations,
--- NOTE | 2023-07-30 09:00 | PT.OTN ---
Current Diagnoses Pain in unspecified knee (07/30/23) Other abnormalities of gait and mobility (07/30/23) Weakness (07/30/23) Physical Therapy Treatment Note PT-OP-A Visit Information Start: 04/17/23 18:16 Freq: Status: Active Protocol: Document 07/30/23 08:20 SP (Rec: 07/30/23 09:06 SP [id number]) Out-Patient Physical Therapy Visit Information Visit Information Visit Type Treatment Note Visit Start Time 08:20 Visit Stop Time 09:00 Visit Number 15 Number of LADLE PULLER Visits 2 Evaluation Information Evaluation Date 04/18/23 PT-OP-B Current Condition Start: 04/17/23 18:16 Freq: Status: Active Protocol: Document 04/18/23 08:14 NM (Rec: 04/18/23 09:44 NM [id number]) Current Condition History of Current Condition Onset Date 2 years Current Complaints knee pain History of Current Condition Pt presents with B knee pain. Pt also has B wrist pain, R hip, and low back pain; reports pain not consistent. Pt doesn't have a specific known onset or mechanism of injury for knee pain, but believes that he was performing strenous workouts in the past which likely contributed (e.g. heavy weight lifting including squats, deadlift). Reports has not improved over time. Currently, limiting activity due to discomfort. No reports of instability, locking, clicking . No hx of knee injuries, surgeries. No hx hip, ankle, or back injuries. Family hx of RA (mother, onset 40's); no known inflammatory disease. Pain does not feel like it's moving around in knee. Reports that he is able to push through pain without difficulty, but states that it's annoying. Prior Treatments and Tests No imaging, previous PT Prior Functional Status Baseline Function- ADL's Independent Baseline Function- Mobility Independent Baseline Function- Recreation/Hobbies Exercise/weight lifting 5x/wk (combo leg, arm, back days), running as exercise prn Current Functional Impairments (Reported) Functional Limitations- Recreation/ currently limiting physical Hobbies activity unless necessary for work PT-OP-C Subjective Start: 04/17/23 18:16 Freq: Status: Active Protocol: Document 07/30/23 08:20 SP (Rec: 07/30/23 09:06 SP [id number]) OP-PT Subjective Patient Comments Patient Comments Pt reported knees felt fine during all ther ex but later that night distal quad above knee started soreness and next day felt more pain. Hasn't done any exercises since last tx with limited time. PT-OP-D Balance Start: 04/17/23 18:16 Freq: Status: Active Protocol: Document 04/18/23 08:14 NM (Rec: 04/18/23 09:44 NM [id number]) Balance Tests Single Limb Standing Single Limb- Right 10 sec, increased sway, no pain Single Limb- Left 10 sec, increased sway, no pain Tandem Tandem Standing 5 sec EC, 20 sec EO before LOB PT-OP-E Functional Tests Start: 04/17/23 18:16 Freq: Status: Active Protocol: Document 04/18/23 08:14 NM (Rec: 04/18/23 09:44 NM [id number]) Functional Tests Squat Test Score 10 Comments up and down pain, valgus, dec DF, Single Leg Squat Test Score 1 ea Comment deep pistol; valgus B, dec DF Other Eccentric step down Name of Test 4 step Comment B knee valgus, pronation, trendelenburg Hop Name of Test double leg hop; single leg hop Score pain with landing double hop; single leg hop pain with ascend/landing Comment lands with valgus on all attempts, pronation at ankle, hip drop PT-OP-F Manual Assessment Start: 04/17/23 18:16 Freq: Status: Active Protocol: Document 04/18/23 08:14 NM (Rec: 04/18/23 09:44 NM [id number]) Manual Assessments Soft Tissue Assessment Soft Tissue Mobility Assessment Decreased hamstring length bilaterally; not formally measured Joint Mobility Assessment Joint Mobility Assessment No B knee instability, no pain with tibial IR/ER. Decreased B hip AROM and PROM. Slight lateral patellar tracking with short and long sitting knee ext, decreased superior translation in sitting. B knee crepitus with repeated knee flex/ext PT-OP-G Mobility & Gait Start: 04/17/23 18:16 Freq: Status: Active Protocol: Document 04/18/23 08:14 NM (Rec: 04/18/23 09:44 NM [id number]) OP Gait Assessment Gait Gait Assistance Required: Independent Distance (Feet) 200 Assistive Devices Assistive Device None Comments Gait Comments Narrow stance. Increased pronation with gait, B foot ER in stance and during swing. Early toe off. Stair Climbing Evaluation Evaluation Level of Assist On Stairs Independent Devices Stair Climbing Assistive Devices None Technique/Endurance Stair Climbing Direction Ascend and Descend Stair Climbing Technique Step Over Step Number of Steps Climbed 4 Stair Climbing Set # Repetitions (reps) 1 Comments Stair Climbing Comments Anterior knee pain with descent, knee valgus and foot pronation bilaterally PT-OP-J Posture/Palpation/Skin Start: 04/17/23 18:16 Freq: Status: Active Protocol: Document 04/18/23 08:14 NM (Rec: 04/18/23 09:44 NM [id number]) Posture Evaluation Position Standing Evaluation View posterior, lateral Head/C-Spine Posture Forward Head T-Spine Posture Increased Kyphosis L-Spine Posture Increased Lordosis Shoulder Posture (L) Rounded,(R) Rounded Scapula Posture (L) Protracted,(R) Protracted Arm Posture (L) Internally Rotated,(R) Internally Rotated Pelvis Posture Anteriorly Tilted Weight Distribution Balanced Hip Posture (L) Externally Rotated,(R) Externally Rotated Knee Posture (L) Genu Valgus,(R) Genu Valgus Patellar Posture (L) Superior,(R) Superior,(L) Laterally Tilted,(R) Laterally Tilted Ankle/Foot Posture (L) Pronated,(R) Pronated Palpation Assessment Location R knee Palpation Location patella, fibula, joint line, tibia, medial and lateral condyles Palpation Findings Tenderness Palpation Details Tenderness along superomedial patella, worse after resisted extension; minimally tender to palpation. No other tenderness noted along patella , joint lines, tibia, femoral condyles. hips not tender to palpation L knee Palpation Location patella, fibula, joint line, tibia, medial and lateral condyles Palpation Findings Tenderness Palpation Details Tenderness along superomedial patella, worse after resisted extension; minimally tender to palpation. No other tenderness noted along patella , joint lines, tibia, femoral condyles. hips not tender to palpation Skin Assessment Other Assessments Skin Assessment Comments No swelling noted in B knees PT-OP-K Range of Motion Start: 04/17/23 18:16 Freq: Status: Active Protocol: Document 06/20/23 08:20 NM (Rec: 06/20/23 09:05 NM [id number]) Knee Goniometric Range of Motion Knee Right Flexion Active (degrees) 145 Flexion Passive (degrees) 147 Extension Active (degrees) 0 Hyper-Extension Active 4 Comments No pain with active flex/ext translation Left Flexion Active (degrees) 140 Flexion Passive (degrees) 145 Extension Active (degrees) 0 Hyper-Extension Active 5 Comments No pain with active flex/ext translation PT-OP-L Special Tests Start: 04/17/23 18:16 Freq: Status: Active Protocol: Document 04/18/23 08:14 NM (Rec: 04/18/23 09:44 NM [id number]) Special Tests Hip Special Tests scour Test Results - Comments bilaterally Labrum Test Results - Comments anterior and posterior labral tests; bilaterally SITA Test Results - Comments decreased mobility but not painful; bilaterally FADIR Test Results - Comments bilaterally Knee Special Tests Patellar Grind Test Test Results + Marlin Test Test Results - Comments bilaterally Posterior Sag Test Results - Comments bilaterally Posterior Draw Test Results - Comments bilaterally George Test Results - Comments bilaterally Anterior Draw Test Results - Comments bilaterally Varus Test Results - Comments 0 and 30 deg; bilaterally Valgus Test Results - Comments 0 and 30 deg; bilaterally PT-OP-M Strength Start: 04/17/23 18:16 Freq: Status: Active Protocol: Document 06/20/23 08:20 NM (Rec: 06/20/23 09:05 NM [id number]) Hip Strength Hip Manual Muscle Testing Right Flexion (L2) 5 Normal Extension (S1) 4+ Good+ Abduction 4+ Good+ Adduction 5 Normal External Rotation 5 Normal Internal Rotation 5 Normal Comments IE: 4-/5 MMT flex/abd/ext, 4/5 for add/IR/ER 05/22/23: 4/5 hip flex, 4+/5 for ext/abd 06/20/23: 4+/5 for hip abd/ext, 5/5 for all others Left Flexion (L2) 5 Normal Extension (S1) 4+ Good+ Abduction 4+ Good+ Adduction 5 Normal External Rotation 5 Normal Internal Rotation 5 Normal Comments IE: 4-/5 flex/ext/abd, 4/5 for ER/IR/ADD 05/22/23: 4/5 hip flex/abd, 4+/ 5 ext 06/20/23: 4+/5 for hip abd/ext, 5/5 for all others Knee Strength Knee Manual Muscle Testing Right Flexion (S2) 4+ Good+ Extension (L3) 4+ Good+ Comments IE: 4+/5, Pain with resisted extension 05/22/23: 4+/5 MMT, no pain 06/20/23: 4+/5, no pain Left Flexion (S2) 4+ Good+ Extension (L3) 4+ Good+ Comments IE: 4+/5, Pain with resisted extension 05/22/23: no pain, 4+/5 06/20/23: 4+/5, no pain PT-OP-Q Treatments Start: 04/17/23 18:16 Freq: Status: Active Protocol: Document 07/30/23 08:20 SP (Rec: 07/30/23 09:06 SP [id number]) Therapeutic Exercises Supine Exercises stretching Supine Exercise Name HS /c AP Reps/Minutes x20 reps Comments good stretch post thigh reported Prone Exercises Quad stretch Side bilateral Reps/Minutes 30 sec Comments good feedback stretch Sidelying Exercises side plank Sidelying Exercise Name side plank Side bilateral Reps/Minutes 60 Comments cued shld stacked, head back Nspine , pnfree Standing Exercises single leg squat Standing Exercise Name single leg squat to chair ( eccentric) Side bilateral Resistance TB #2 at thighs Equipment Used mesh chair, mirror for visual cues Reps/Minutes 2x5 reps Comments crepitus; pain free; improved TA slow asc/ecc, no valgus calf stretches on step Standing Exercise Name 1. Gastroc, 2. soleus Side bilateral Equipment Used off bottom step, rail support Reps/Minutes 1x60 ea Comments good feedback felt better individual vs together stationary lunges Standing Exercise Name skater lunges Side bilateral Equipment Used used mirror for self mechanics and form Reps/Minutes x10 each LE Comments good knee alignment form, pnfree Other Exercises stretching Other Exercise Name HS (bottoms up), hip flexor in 1/2 kneel /c foot on chair Side bilateral Equipment Used HS stretch to 8>4 box, pillow under knee on floor Reps/Minutes 1. 60 breath holds, 2. 1x60 Comments pain free, cued for ppt during hip flexor stretch Self STMs Other Exercise Name quad, HS, ITB, add, calf Side right Equipment Used ball wall, rolling pin, tool / c knee flexion Comments good response tension reduction PT-OP-T Assessment and Plan Start: 04/17/23 18:16 Freq: Status: Active Protocol: Document 07/30/23 08:20 SP (Rec: 06/04/24 09:06 SP [id number]) Physical Therapy Assessment Goals Four Impairment strength Impairment B hip flex, ext, abd 4-/5 MMT Short Term Goal (STG) Pt will increase B hip flex, ext, and abd MMT to at least 4 /5 in order to demonstrate improved strength required for squats, stairs, and other functional activities STG Duration 5 weeks MET Run Boat Operator Goal (LTG) Pt will increase B hip flex, ext, and abd MMT to at least 5 /5 in order to demonstrate improved strength required for squats, stairs, and other functional activities 06/20/23: MET: 4+/5 for hip abd /ext, 5/5 for hip flex/ER/IR LTG Duration 10 weeks MET, GOAL UPDATED Three Impairment HEP Impairment not performing HEP or daily exercise program Short Term Goal (STG) Pt will report compliance with HEP at least 3x/wk in order to demonstrate return to activity and to maximize gains made during PT sessions 05/22/23: 4-5x/wk STG Duration 5 weeks MET Run Boat Operator Goal (LTG) Pt will report at least 50% return to prior level of workouts 3x/wk in order to demonstrate return to activity , improved pain management, and maintenance program for independent exercise. 06/20/23: working out 2x/wk, less than 50% but improved since IE LTG Duration 10 weeks PROGRESSING Two Impairment function Impairment 10 B squats painful with excess knee valgus and pronation Short Term Goal (STG) Pt will perform at least 10 bilateral squats without pain or compensation in order to demonstrate improved quad control and glute activation for functional activities. 05/22/23: 10 bilateral squats w /o pain or compensation using hip hinge STG Duration 5 weeks MET Detention Goal (LTG) Pt will be able to perform at least 10 single leg squats without pain or compensation in order to demonstrate improved quad control and glute activation for functional activities. 06/20/23: able to perform 10 single leg squats with pain <1 /10, but demonstrates compensations with knee valgus melissa with increased depth, decreased ankle dorsiflexion, and excessive knee over toe with slight hip rotation (R side only) LTG Duration 10 weeks PROGRESSING, NOT MET One Impairment function Short Term Goal (STG) Pt will perform at least 10 eccentric step downs without compensation and reports of <3 /10 B knee pain in order to demonstrate improved hip strength and quad control 05/22/23: able to perform 10 step downs eccentric from 6 step with pain 1/10 L knee, 2/ 10 R knee before taping, 1/10 R knee with taping and 0/10 L knee with taping STG Duration 5 weeks MET Run Boat Operator Goal (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 Improved quad and HS flexibility review STMs and stretching, ed incorporated into day with sitting alot work. Improved self knee alignment corrections with use mirror and occ ed reported pn free. Ed for contiue incorporation ex today into day for knee rail signal mechanic mobility carryover strength and flexibility with better understanding. Pt reports wow knees feels good end tx. Physical Therapy Plan Frequency and Duration Frequency of Treatment 1-2x/wk Duration of treatment (weeks) 12 Plan of Care Start Date 06/20/23 Plan of Care End Date 09/13/23 Therapeutic Interventions Therapeutic Interventions Balance Training,Coordination Training,Gait Training,Home Exercise Program,Joint Mobilizations,Manual Therapy, Neuromuscular Re-education, Orthotic/Prosthetic Management ,Patient/Caregiver Education, Self-Care/Home Management,Soft Tissue Mobilization,Taping, Therapeutic Activities, Therapeutic Exercises Modalities Biofeedback,Cold Pack/Ice Massage,Electric Stimulation, Hot Packs,Traction- Mechanical ,Ultrasound,Vasopneumatic Devices Next Visit Focus/Plan Next Note Type Treatment Note Next Visit Plan Ask response to stretching/ STMs and ther ex that Load patellar post later day/next day. Incorporate home. PT POC: load Pat Ten/quad tendon, review single leg squat/RDL/leg press. Side plank, reverse nordic, skater lunge Manual prn: STM, patellar mobilizations,
--- NOTE | 2023-08-01 15:45 | PT.OTN ---
Current Diagnoses Pain in unspecified knee (08/01/23) Other abnormalities of gait and mobility (08/01/23) Weakness (08/01/23) Physical Therapy Treatment Note PT-OP-A Visit Information Start: 04/17/23 18:16 Freq: Status: Active Protocol: Document 08/01/23 08:19 NM (Rec: 08/01/23 09:03 NM [id number]) Out-Patient Physical Therapy Visit Information Visit Information Visit Type Progress Note Visit Start Time 08:21 Visit Stop Time 09:00 Visit Number 16 Evaluation Information Evaluation Date 04/18/23 PT-OP-B Current Condition Start: 04/17/23 18:16 Freq: Status: Active Protocol: Document 04/18/23 08:14 NM (Rec: 04/18/23 09:44 NM [id number]) Current Condition History of Current Condition Onset Date 2 years Current Complaints knee pain History of Current Condition Pt presents with B knee pain. Pt also has B wrist pain, R hip, and low back pain; reports pain not consistent. Pt doesn't have a specific known onset or mechanism of injury for knee pain, but believes that he was performing strenous workouts in the past which likely contributed (e.g. heavy weight lifting including squats, deadlift). Reports has not improved over time. Currently, limiting activity due to discomfort. No reports of instability, locking, clicking . No hx of knee injuries, surgeries. No hx hip, ankle, or back injuries. Family hx of RA (mother, onset 40's); no known inflammatory disease. Pain does not feel like it's moving around in knee. Reports that he is able to push through pain without difficulty, but states that it's annoying. Prior Treatments and Tests No imaging, previous PT Prior Functional Status Baseline Function- ADL's Independent Baseline Function- Mobility Independent Baseline Function- Recreation/Hobbies Exercise/weight lifting 5x/wk (combo leg, arm, back days), running as exercise prn Current Functional Impairments (Reported) Functional Limitations- Recreation/ currently limiting physical Hobbies activity unless necessary for work PT-OP-C Subjective Start: 04/17/23 18:16 Freq: Status: Active Protocol: Document 08/01/23 08:19 NM (Rec: 08/01/23 09:03 NM [id number]) OP-PT Subjective Patient Comments Patient Comments Pt reports that he was pain free until last week at night. Stretching helped last session. Pain is mostly above the knee cap now when he has pain, mostly limited with stairs, running, hiking. has 4 more visits left on remaining auth PT-OP-D Balance Start: 04/17/23 18:16 Freq: Status: Active Protocol: Document 04/18/23 08:14 NM (Rec: 04/18/23 09:44 NM [id number]) Balance Tests Single Limb Standing Single Limb- Right 10 sec, increased sway, no pain Single Limb- Left 10 sec, increased sway, no pain Tandem Tandem Standing 5 sec EC, 20 sec EO before LOB PT-OP-E Functional Tests Start: 04/17/23 18:16 Freq: Status: Active Protocol: Document 04/18/23 08:14 NM (Rec: 04/18/23 09:44 NM [id number]) Functional Tests Squat Test Score 10 Comments up and down pain, valgus, dec DF, Single Leg Squat Test Score 1 ea Comment deep pistol; valgus B, dec DF Other Eccentric step down Name of Test 4 step Comment B knee valgus, pronation, trendelenburg Hop Name of Test double leg hop; single leg hop Score pain with landing double hop; single leg hop pain with ascend/landing Comment lands with valgus on all attempts, pronation at ankle, hip drop PT-OP-F Manual Assessment Start: 04/17/23 18:16 Freq: Status: Active Protocol: Document 04/18/23 08:14 NM (Rec: 04/18/23 09:44 NM [id number]) Manual Assessments Soft Tissue Assessment Soft Tissue Mobility Assessment Decreased hamstring length bilaterally; not formally measured Joint Mobility Assessment Joint Mobility Assessment No B knee instability, no pain with tibial IR/ER. Decreased B hip AROM and PROM. Slight lateral patellar tracking with short and long sitting knee ext, decreased superior translation in sitting. B knee crepitus with repeated knee flex/ext PT-OP-G Mobility & Gait Start: 04/17/23 18:16 Freq: Status: Active Protocol: Document 04/18/23 08:14 NM (Rec: 04/18/23 09:44 NM [id number]) OP Gait Assessment Gait Gait Assistance Required: Independent Distance (Feet) 200 Assistive Devices Assistive Device None Comments Gait Comments Narrow stance. Increased pronation with gait, B foot ER in stance and during swing. Early toe off. Stair Climbing Evaluation Evaluation Level of Assist On Stairs Independent Devices Stair Climbing Assistive Devices None Technique/Endurance Stair Climbing Direction Ascend and Descend Stair Climbing Technique Step Over Step Number of Steps Climbed 4 Stair Climbing Set # Repetitions (reps) 1 Comments Stair Climbing Comments Anterior knee pain with descent, knee valgus and foot pronation bilaterally PT-OP-J Posture/Palpation/Skin Start: 04/17/23 18:16 Freq: Status: Active Protocol: Document 04/18/23 08:14 NM (Rec: 04/18/23 09:44 NM [id number]) Posture Evaluation Position Standing Evaluation View posterior, lateral Head/C-Spine Posture Forward Head T-Spine Posture Increased Kyphosis L-Spine Posture Increased Lordosis Shoulder Posture (L) Rounded,(R) Rounded Scapula Posture (L) Protracted,(R) Protracted Arm Posture (L) Internally Rotated,(R) Internally Rotated Pelvis Posture Anteriorly Tilted Weight Distribution Balanced Hip Posture (L) Externally Rotated,(R) Externally Rotated Knee Posture (L) Genu Valgus,(R) Genu Valgus Patellar Posture (L) Superior,(R) Superior,(L) Laterally Tilted,(R) Laterally Tilted Ankle/Foot Posture (L) Pronated,(R) Pronated Palpation Assessment Location R knee Palpation Location patella, fibula, joint line, tibia, medial and lateral condyles Palpation Findings Tenderness Palpation Details Tenderness along superomedial patella, worse after resisted extension; minimally tender to palpation. No other tenderness noted along patella , joint lines, tibia, femoral condyles. hips not tender to palpation L knee Palpation Location patella, fibula, joint line, tibia, medial and lateral condyles Palpation Findings Tenderness Palpation Details Tenderness along superomedial patella, worse after resisted extension; minimally tender to palpation. No other tenderness noted along patella , joint lines, tibia, femoral condyles. hips not tender to palpation Skin Assessment Other Assessments Skin Assessment Comments No swelling noted in B knees PT-OP-K Range of Motion Start: 04/17/23 18:16 Freq: Status: Active Protocol: Document 08/01/23 08:19 NM (Rec: 08/01/23 09:03 NM [id number]) Knee Goniometric Range of Motion Knee Right Flexion Active (degrees) 145 Flexion Passive (degrees) 147 Extension Active (degrees) 0 Hyper-Extension Active 4 Comments No pain with active flex/ext translation Left Flexion Active (degrees) 140 Flexion Passive (degrees) 145 Extension Active (degrees) 0 Hyper-Extension Active 5 Comments No pain with active flex/ext translation PT-OP-L Special Tests Start: 04/17/23 18:16 Freq: Status: Active Protocol: Document 04/18/23 08:14 NM (Rec: 04/18/23 09:44 NM [id number]) Special Tests Hip Special Tests scour Test Results - Comments bilaterally Labrum Test Results - Comments anterior and posterior labral tests; bilaterally SITA Test Results - Comments decreased mobility but not painful; bilaterally FADIR Test Results - Comments bilaterally Knee Special Tests Patellar Grind Test Test Results + Marlin Test Test Results - Comments bilaterally Posterior Sag Test Results - Comments bilaterally Posterior Draw Test Results - Comments bilaterally George Test Results - Comments bilaterally Anterior Draw Test Results - Comments bilaterally Varus Test Results - Comments 0 and 30 deg; bilaterally Valgus Test Results - Comments 0 and 30 deg; bilaterally PT-OP-M Strength Start: 04/17/23 18:16 Freq: Status: Active Protocol: Document 08/01/23 08:19 NM (Rec: 08/01/23 09:03 NM [id number]) Hip Strength Hip Manual Muscle Testing Right Flexion (L2) 5 Normal Extension (S1) 4+ Good+ Abduction 4+ Good+ Adduction 5 Normal External Rotation 5 Normal Internal Rotation 5 Normal Comments IE: 4-/5 MMT flex/abd/ext, 4/5 for add/IR/ER 05/22/23: 4/5 hip flex, 4+/5 for ext/abd 06/20/23: 4+/5 for hip abd/ext, 5/5 for all others 08/01/23: 5/5 Left Flexion (L2) 5 Normal Extension (S1) 4+ Good+ Abduction 4+ Good+ Adduction 5 Normal External Rotation 5 Normal Internal Rotation 5 Normal Comments IE: 4-/5 flex/ext/abd, 4/5 for ER/IR/ADD 05/22/23: 4/5 hip flex/abd, 4+/ 5 ext 06/20/23: 4+/5 for hip abd/ext, 5/5 for all others 08/01/23: 5/5 Knee Strength Knee Manual Muscle Testing Right Flexion (S2) 4+ Good+ Extension (L3) 4+ Good+ Comments IE: 4+/5, Pain with resisted extension 05/22/23: 4+/5 MMT, no pain 06/20/23: 4+/5, no pain 08/01/23: 4+/5 Left Flexion (S2) 4+ Good+ Extension (L3) 4+ Good+ Comments IE: 4+/5, Pain with resisted extension 05/22/23: no pain, 4+/5 06/20/23: 4+/5, no pain 08/01/23: 4+/5 PT-OP-Q Treatments Start: 04/17/23 18:16 Freq: Status: Active Protocol: Document 08/01/23 08:19 NM (Rec: 08/01/23 09:03 NM [id number]) Therapeutic Exercises Supine Exercises stretching Supine Exercise Name HS /c AP Reps/Minutes x20 reps Comments good stretch post thigh reported Prone Exercises plank Prone Exercise Name bosu plank w/ hip ext Side bilateral Equipment Used black side up Reps/Minutes 2x10 ea Comments pain free; cued neutral spine reverse nordic Prone Exercise Name trialed in PT then d/c due to cramp Side bilateral Equipment Used to bosu, on mat Reps/Minutes 1 quad isometrics Side bilateral Resistance lvl 4 band, midrange isac with bias into flexion Reps/Minutes 5x45 ea, 3 min break btwn ea one Comments pain free; strength/balance exercises btwn sets; edu for HEP/pn mngmt Quad stretch Side bilateral Equipment Used mat on floor Reps/Minutes 2x30 Comments good feedback stretch Standing Exercises wall squats Standing Exercise Name single leg isometric squat w/ glute medius bias Side bilateral Equipment Used medium orange mexican ball Reps/Minutes 1x60 ea Comments btwn sets of quad, cued to maintain pain free depth Other Exercises Self STMs Other Exercise Name HS, quad, glutes Side bilateral Equipment Used foam roller Reps/Minutes 2' Neuro Re-Education Treatment Balance Activities single leg ball toss Surface bosu blue side up in semi squat Reps/Duration 8 min total time Comments 1. squat hold, 1 min 2. ball toss, 15 reps performed between sets of isometrics Self-Care/Home Management Treatment Education Patient Education Home Exercise Program Other Education Education on rationale for isometrics and stretching for quad tendon symptom reduction HEP: quad stretch, LAQ isometric with machine at home PT-OP-T Assessment and Plan Start: 04/17/23 18:16 Freq: Status: Active Protocol: Document 08/01/23 08:19 NM (Rec: 08/01/23 09:03 NM [id number]) Physical Therapy Assessment Goals Four Impairment strength Impairment B hip flex, ext, abd 4-/5 MMT Short Term Goal (STG) Pt will increase B hip flex, ext, and abd MMT to at least 4 /5 in order to demonstrate improved strength required for squats, stairs, and other functional activities STG Duration 5 weeks MET Parboiler Goal (LTG) Pt will increase B hip flex, ext, and abd MMT to at least 5 /5 in order to demonstrate improved strength required for squats, stairs, and other functional activities 06/20/23: MET: 4+/5 for hip abd /ext, 5/5 for hip flex/ER/IR 08/01/23: 5/5, goal MET LTG Duration 10 weeks MET, GOAL UPDATED- MET Three Impairment HEP Impairment not performing HEP or daily exercise program Short Term Goal (STG) Pt will report compliance with HEP at least 3x/wk in order to demonstrate return to activity and to maximize gains made during PT sessions 05/22/23: 4-5x/wk STG Duration 5 weeks MET Care Home Goal (LTG) Pt will report at least 50% return to prior level of workouts 3x/wk in order to demonstrate return to activity , improved pain management, and maintenance program for independent exercise. 06/20/23: working out 2x/wk, less than 50% but improved since IE 08/01/23: not performing at least 3x/wk. Educated on stretching every day, strengthening 3x/wk LTG Duration 10 weeks PROGRESSING Two Impairment function Impairment 10 B squats painful with excess knee valgus and pronation Short Term Goal (STG) Pt will perform at least 10 bilateral squats without pain or compensation in order to demonstrate improved quad control and glute activation for functional activities. 05/22/23: 10 bilateral squats w /o pain or compensation using hip hinge STG Duration 5 weeks MET Care Home Goal (LTG) Pt will be able to perform at least 10 single leg squats without pain or compensation in order to demonstrate improved quad control and glute activation for functional activities. 06/20/23: able to perform 10 single leg squats with pain <1 /10, but demonstrates compensations with knee valgus melissa with increased depth, decreased ankle dorsiflexion, and excessive knee over toe with slight hip rotation (R side only) 08/01/23: 10 reps, quad pain only in midrange of squat, none with initiation or depth LTG Duration 10 weeks PROGRESSING, NOT MET One Impairment function Short Term Goal (STG) Pt will perform at least 10 eccentric step downs without compensation and reports of <3 /10 B knee pain in order to demonstrate improved hip strength and quad control 05/22/23: able to perform 10 step downs eccentric from 6 step with pain 1/10 L knee, 2/ 10 R knee before taping, 1/10 R knee with taping and 0/10 L knee with taping STG Duration 5 weeks MET Care Home Goal (LTG) Pt will be able to perform at least 12 stairs without reports of increased pain in order to demonstrate improved hip strength and quad control 06/20/23: 14 stairs with 1/10 R knee pain; demos decreased hip strength, ankle mobility, no valgus; 4 eccentric step down 08/01/23: reports still painful with stairs but minimal LTG Duration 10 weeks PROGRESSING, NOT MET Progress Towards Goals Progress Towards Goals Progressing Toward Goals,Slow Progress due to Attendance Issues,Slow Progress - Other, Goals Met Assessment Summary Assessment Pt able to participate in higher level activities without pain during session. However, he still has pain with loading (hiking, running, resisted squats, stairs). Pt has made progress, was pain free with activities, but has had a regression recently. Initiated quad isometrics for quad tendon loading to address pt pain reports. Good feedback for quad loading with mid range LAQs. Pt demonstrates good core and single leg stability with dynamic exercises. Cued only for form as needed. Physical Therapy Plan Frequency and Duration Frequency of Treatment 1-2x/wk Duration of treatment (weeks) 12 Plan of Care Start Date 06/20/23 Plan of Care End Date 09/13/23 Therapeutic Interventions Therapeutic Interventions Balance Training,Coordination Training,Gait Training,Home Exercise Program,Joint Mobilizations,Manual Therapy, Neuromuscular Re-education, Orthotic/Prosthetic Management ,Patient/Caregiver Education, Self-Care/Home Management,Soft Tissue Mobilization,Taping, Therapeutic Activities, Therapeutic Exercises Modalities Biofeedback,Cold Pack/Ice Massage,Electric Stimulation, Hot Packs,Traction- Mechanical ,Ultrasound,Vasopneumatic Devices Next Visit Focus/Plan Next Note Type Treatment Note Next Visit Plan quad tendon loading Stretching quad, HS. LAQ in midrange isac 70% force 5x45 with 3' break between or wall sit 5x45 with 3' break between (progress from DL>SL). Ukrainian squat. Single leg balance and core strength PT POC: load Pat Ten/quad tendon, review single leg squat/RDL/leg press. Side plank, reverse nordic, skater lunge Manual prn: STM, patellar mobilizations,
--- NOTE | 2023-08-06 09:00 | PT.OTN ---
Current Diagnoses Pain in unspecified knee (08/06/23) Other abnormalities of gait and mobility (08/06/23) Weakness (08/06/23) Physical Therapy Treatment Note PT-OP-A Visit Information Start: 04/17/23 18:16 Freq: Status: Active Protocol: Document 08/06/23 08:20 SP (Rec: 08/06/23 09:05 SP [id number]) Out-Patient Physical Therapy Visit Information Visit Information Visit Type Treatment Note Visit Start Time 08:20 Visit Stop Time 09:00 Visit Number 17 Number of [employer] Visits 1 Evaluation Information Evaluation Date 04/18/23 PT-OP-B Current Condition Start: 04/17/23 18:16 Freq: Status: Active Protocol: Document 04/18/23 08:14 NM (Rec: 04/18/23 09:44 NM [id number]) Current Condition History of Current Condition Onset Date 2 years Current Complaints knee pain History of Current Condition Pt presents with B knee pain. Pt also has B wrist pain, R hip, and low back pain; reports pain not consistent. Pt doesn't have a specific known onset or mechanism of injury for knee pain, but believes that he was performing strenous workouts in the past which likely contributed (e.g. heavy weight lifting including squats, deadlift). Reports has not improved over time. Currently, limiting activity due to discomfort. No reports of instability, locking, clicking . No hx of knee injuries, surgeries. No hx hip, ankle, or back injuries. Family hx of RA (mother, onset 40's); no known inflammatory disease. Pain does not feel like it's moving around in knee. Reports that he is able to push through pain without difficulty, but states that it's annoying. Prior Treatments and Tests No imaging, previous PT Prior Functional Status Baseline Function- ADL's Independent Baseline Function- Mobility Independent Baseline Function- Recreation/Hobbies Exercise/weight lifting 5x/wk (combo leg, arm, back days), running as exercise prn Current Functional Impairments (Reported) Functional Limitations- Recreation/ currently limiting physical Hobbies activity unless necessary for work PT-OP-C Subjective Start: 04/17/23 18:16 Freq: Status: Active Protocol: Document 08/06/23 08:20 SP (Rec: 08/06/23 09:05 SP [id number]) OP-PT Subjective Patient Comments Patient Comments Pt reports felt pretty good after lasttx. Daily when feels annoying discomfort is either in quad just above patella or patellar tendon. Arrival is patellar tendon bilaterally today. PT-OP-D Balance Start: 04/17/23 18:16 Freq: Status: Active Protocol: Document 04/18/23 08:14 NM (Rec: 04/18/23 09:44 NM [id number]) Balance Tests Single Limb Standing Single Limb- Right 10 sec, increased sway, no pain Single Limb- Left 10 sec, increased sway, no pain Tandem Tandem Standing 5 sec EC, 20 sec EO before LOB PT-OP-E Functional Tests Start: 04/17/23 18:16 Freq: Status: Active Protocol: Document 04/18/23 08:14 NM (Rec: 04/18/23 09:44 NM [id number]) Functional Tests Squat Test Score 10 Comments up and down pain, valgus, dec DF, Single Leg Squat Test Score 1 ea Comment deep pistol; valgus B, dec DF Other Eccentric step down Name of Test 4 step Comment B knee valgus, pronation, trendelenburg Hop Name of Test double leg hop; single leg hop Score pain with landing double hop; single leg hop pain with ascend/landing Comment lands with valgus on all attempts, pronation at ankle, hip drop PT-OP-F Manual Assessment Start: 04/17/23 18:16 Freq: Status: Active Protocol: Document 04/18/23 08:14 NM (Rec: 04/18/23 09:44 NM [id number]) Manual Assessments Soft Tissue Assessment Soft Tissue Mobility Assessment Decreased hamstring length bilaterally; not formally measured Joint Mobility Assessment Joint Mobility Assessment No B knee instability, no pain with tibial IR/ER. Decreased B hip AROM and PROM. Slight lateral patellar tracking with short and long sitting knee ext, decreased superior translation in sitting. B knee crepitus with repeated knee flex/ext PT-OP-G Mobility & Gait Start: 04/17/23 18:16 Freq: Status: Active Protocol: Document 04/18/23 08:14 NM (Rec: 04/18/23 09:44 NM [id number]) OP Gait Assessment Gait Gait Assistance Required: Independent Distance (Feet) 200 Assistive Devices Assistive Device None Comments Gait Comments Narrow stance. Increased pronation with gait, B foot ER in stance and during swing. Early toe off. Stair Climbing Evaluation Evaluation Level of Assist On Stairs Independent Devices Stair Climbing Assistive Devices None Technique/Endurance Stair Climbing Direction Ascend and Descend Stair Climbing Technique Step Over Step Number of Steps Climbed 4 Stair Climbing Set # Repetitions (reps) 1 Comments Stair Climbing Comments Anterior knee pain with descent, knee valgus and foot pronation bilaterally PT-OP-J Posture/Palpation/Skin Start: 04/17/23 18:16 Freq: Status: Active Protocol: Document 04/18/23 08:14 NM (Rec: 04/18/23 09:44 NM [id number]) Posture Evaluation Position Standing Evaluation View posterior, lateral Head/C-Spine Posture Forward Head T-Spine Posture Increased Kyphosis L-Spine Posture Increased Lordosis Shoulder Posture (L) Rounded,(R) Rounded Scapula Posture (L) Protracted,(R) Protracted Arm Posture (L) Internally Rotated,(R) Internally Rotated Pelvis Posture Anteriorly Tilted Weight Distribution Balanced Hip Posture (L) Externally Rotated,(R) Externally Rotated Knee Posture (L) Genu Valgus,(R) Genu Valgus Patellar Posture (L) Superior,(R) Superior,(L) Laterally Tilted,(R) Laterally Tilted Ankle/Foot Posture (L) Pronated,(R) Pronated Palpation Assessment Location R knee Palpation Location patella, fibula, joint line, tibia, medial and lateral condyles Palpation Findings Tenderness Palpation Details Tenderness along superomedial patella, worse after resisted extension; minimally tender to palpation. No other tenderness noted along patella , joint lines, tibia, femoral condyles. hips not tender to palpation L knee Palpation Location patella, fibula, joint line, tibia, medial and lateral condyles Palpation Findings Tenderness Palpation Details Tenderness along superomedial patella, worse after resisted extension; minimally tender to palpation. No other tenderness noted along patella , joint lines, tibia, femoral condyles. hips not tender to palpation Skin Assessment Other Assessments Skin Assessment Comments No swelling noted in B knees PT-OP-K Range of Motion Start: 04/17/23 18:16 Freq: Status: Active Protocol: Document 08/01/23 08:19 NM (Rec: 08/01/23 09:03 NM [id number]) Knee Goniometric Range of Motion Knee Right Flexion Active (degrees) 145 Flexion Passive (degrees) 147 Extension Active (degrees) 0 Hyper-Extension Active 4 Comments No pain with active flex/ext translation Left Flexion Active (degrees) 140 Flexion Passive (degrees) 145 Extension Active (degrees) 0 Hyper-Extension Active 5 Comments No pain with active flex/ext translation PT-OP-L Special Tests Start: 04/17/23 18:16 Freq: Status: Active Protocol: Document 04/18/23 08:14 NM (Rec: 04/18/23 09:44 NM [id number]) Special Tests Hip Special Tests scour Test Results - Comments bilaterally Labrum Test Results - Comments anterior and posterior labral tests; bilaterally SITA Test Results - Comments decreased mobility but not painful; bilaterally FADIR Test Results - Comments bilaterally Knee Special Tests Patellar Grind Test Test Results + Marlin Test Test Results - Comments bilaterally Posterior Sag Test Results - Comments bilaterally Posterior Draw Test Results - Comments bilaterally George Test Results - Comments bilaterally Anterior Draw Test Results - Comments bilaterally Varus Test Results - Comments 0 and 30 deg; bilaterally Valgus Test Results - Comments 0 and 30 deg; bilaterally PT-OP-M Strength Start: 04/17/23 18:16 Freq: Status: Active Protocol: Document 08/01/23 08:19 NM (Rec: 08/01/23 09:03 NM [id number]) Hip Strength Hip Manual Muscle Testing Right Flexion (L2) 5 Normal Extension (S1) 4+ Good+ Abduction 4+ Good+ Adduction 5 Normal External Rotation 5 Normal Internal Rotation 5 Normal Comments IE: 4-/5 MMT flex/abd/ext, 4/5 for add/IR/ER 05/22/23: 4/5 hip flex, 4+/5 for ext/abd 06/20/23: 4+/5 for hip abd/ext, 5/5 for all others 08/01/23: 5/5 Left Flexion (L2) 5 Normal Extension (S1) 4+ Good+ Abduction 4+ Good+ Adduction 5 Normal External Rotation 5 Normal Internal Rotation 5 Normal Comments IE: 4-/5 flex/ext/abd, 4/5 for ER/IR/ADD 05/22/23: 4/5 hip flex/abd, 4+/ 5 ext 06/20/23: 4+/5 for hip abd/ext, 5/5 for all others 08/01/23: 5/5 Knee Strength Knee Manual Muscle Testing Right Flexion (S2) 4+ Good+ Extension (L3) 4+ Good+ Comments IE: 4+/5, Pain with resisted extension 05/22/23: 4+/5 MMT, no pain 06/20/23: 4+/5, no pain 08/01/23: 4+/5 Left Flexion (S2) 4+ Good+ Extension (L3) 4+ Good+ Comments IE: 4+/5, Pain with resisted extension 05/22/23: no pain, 4+/5 06/20/23: 4+/5, no pain 08/01/23: 4+/5 PT-OP-Q Treatments Start: 04/17/23 18:16 Freq: Status: Active Protocol: Document 08/06/23 08:20 SP (Rec: 08/06/23 09:05 SP [id number]) Therapeutic Exercises Prone Exercises plank Prone Exercise Name bosu plank w/ hip ext Side bilateral Equipment Used black side up Reps/Minutes 2x10 ea Comments pain free; cued neutral LS spine and TA draw in reverse nordic Prone Exercise Name trialed in PT, challenging but pnfree post stretching Side bilateral Equipment Used tall kneel on foam cushion, 1/ 2 roll under ankles, therapist anchor ankles Reps/Minutes 1 then cramp, 5 reps post bottoms up stretch Comments eccentric trunk fwd /c UE support catch self on BOSU, support Min retn Sitting Exercises quad isometric Sitting Exercise Name midrange 70 deg- VM, VL, RF ankle positioning Resistance 8 plates Equipment Used Assimulation for home carryover (has same machine) and angle capability Reps/Minutes 10 x5 reps VL & VM, 3 rep 45 RF Comments tactile cue ankle DF neutral- good muscle tiring pnfree Other Exercises stretching Other Exercise Name HS (bottoms up), hip flexor in 1/2 kneel /c foot on chair Side bilateral Equipment Used HS stretch to 8>4 box, foam under knee on floor Reps/Minutes 1. 60 breath holds, 2. 1x60 Comments pain free, cued for ppt during hip flexor stretch Self STMs Other Exercise Name HS, quad, glutes, calves, peroneals, ITB Side bilateral Equipment Used basketball and tennis ball ( similar bumpy ball home) Reps/Minutes 4' Comments good form and relief reported. PT-OP-T Assessment and Plan Start: 04/17/23 18:16 Freq: Status: Active Protocol: Document 08/06/23 08:20 SP (Rec: 08/06/23 09:05 SP [id number]) Physical Therapy Assessment Goals Four Impairment strength Impairment B hip flex, ext, abd 4-/5 MMT Short Term Goal (STG) Pt will increase B hip flex, ext, and abd MMT to at least 4 /5 in order to demonstrate improved strength required for squats, stairs, and other functional activities STG Duration 5 weeks MET Correction Goal (LTG) Pt will increase B hip flex, ext, and abd MMT to at least 5 /5 in order to demonstrate improved strength required for squats, stairs, and other functional activities 06/20/23: MET: 4+/5 for hip abd /ext, 5/5 for hip flex/ER/IR 08/01/23: 5/5, goal MET LTG Duration 10 weeks MET, GOAL UPDATED- MET Three Impairment HEP Impairment not performing HEP or daily exercise program Short Term Goal (STG) Pt will report compliance with HEP at least 3x/wk in order to demonstrate return to activity and to maximize gains made during PT sessions 05/22/23: 4-5x/wk STG Duration 5 weeks MET Correction Goal (LTG) Pt will report at least 50% return to prior level of workouts 3x/wk in order to demonstrate return to activity , improved pain management, and maintenance program for independent exercise. 06/20/23: working out 2x/wk, less than 50% but improved since IE 08/01/23: not performing at least 3x/wk. Educated on stretching every day, strengthening 3x/wk LTG Duration 10 weeks PROGRESSING Two Impairment function Impairment 10 B squats painful with excess knee valgus and pronation Short Term Goal (STG) Pt will perform at least 10 bilateral squats without pain or compensation in order to demonstrate improved quad control and glute activation for functional activities. 05/22/23: 10 bilateral squats w /o pain or compensation using hip hinge STG Duration 5 weeks MET Buttonhole Maker Hand Goal (LTG) Pt will be able to perform at least 10 single leg squats without pain or compensation in order to demonstrate improved quad control and glute activation for functional activities. 06/20/23: able to perform 10 single leg squats with pain <1 /10, but demonstrates compensations with knee valgus melissa with increased depth, decreased ankle dorsiflexion, and excessive knee over toe with slight hip rotation (R side only) 08/01/23: 10 reps, quad pain only in midrange of squat, none with initiation or depth LTG Duration 10 weeks PROGRESSING, NOT MET One Impairment function Short Term Goal (STG) Pt will perform at least 10 eccentric step downs without compensation and reports of <3 /10 B knee pain in order to demonstrate improved hip strength and quad control 05/22/23: able to perform 10 step downs eccentric from 6 step with pain 1/10 L knee, 2/ 10 R knee before taping, 1/10 R knee with taping and 0/10 L knee with taping STG Duration 5 weeks MET Correction Goal (LTG) Pt will be able to perform at least 12 stairs without reports of increased pain in order to demonstrate improved hip strength and quad control 06/20/23: 14 stairs with 1/10 R knee pain; demos decreased hip strength, ankle mobility, no valgus; 4 eccentric step down 08/01/23: reports still painful with stairs but minimal LTG Duration 10 weeks PROGRESSING, NOT MET Assessment Summary Assessment Pt reported good quad contraction isometric pnfree with use of machine that has a home to utilize. Initial nordic HS cramp, post HS stretching, was able to perform 5 reps with no pain, good muscle tiring challenge. Reviewed self STMs use ball ( has at home) with good feedback response tightness recovery carryover. Physical Therapy Plan Frequency and Duration Frequency of Treatment 1-2x/wk Duration of treatment (weeks) 12 Plan of Care Start Date 06/20/23 Plan of Care End Date 09/13/23 Therapeutic Interventions Therapeutic Interventions Balance Training,Coordination Training,Gait Training,Home Exercise Program,Joint Mobilizations,Manual Therapy, Neuromuscular Re-education, Orthotic/Prosthetic Management ,Patient/Caregiver Education, Self-Care/Home Management,Soft Tissue Mobilization,Taping, Therapeutic Activities, Therapeutic Exercises Modalities Biofeedback,Cold Pack/Ice Massage,Electric Stimulation, Hot Packs,Traction- Mechanical ,Ultrasound,Vasopneumatic Devices Next Visit Focus/Plan Next Note Type Treatment Note Next Visit Plan quad tendon loading Stretching quad, HS. LAQ in midrange isac 70% force 5x45 with 3' break between or wall sit 5x45 with 3' break between (progress from DL>SL). Togolese squat. Single leg balance and core strength PT POC: load Pat Ten/quad tendon, review single leg squat/RDL/leg press. Side plank, reverse nordic, skater lunge Manual prn: STM, patellar mobilizations,
--- NOTE | 2023-08-08 12:46 | PT.OTN ---
Current Diagnoses Pain in unspecified knee (08/08/23) Other abnormalities of gait and mobility (08/08/23) Weakness (08/08/23) Physical Therapy Treatment Note PT-OP-A Visit Information Start: 04/17/23 18:16 Freq: Status: Active Protocol: Document 08/08/23 08:18 NM (Rec: 08/08/23 09:03 NM [id number]) Out-Patient Physical Therapy Visit Information Visit Information Visit Type Treatment Note Visit Start Time 08:18 Visit Stop Time 09:00 Visit Number 18 PT-OP-B Current Condition Start: 04/17/23 18:16 Freq: Status: Active Protocol: Document 04/18/23 08:14 NM (Rec: 04/18/23 09:44 NM [id number]) Current Condition History of Current Condition Onset Date 2 years Current Complaints knee pain History of Current Condition Pt presents with B knee pain. Pt also has B wrist pain, R hip, and low back pain; reports pain not consistent. Pt doesn't have a specific known onset or mechanism of injury for knee pain, but believes that he was performing strenous workouts in the past which likely contributed (e.g. heavy weight lifting including squats, deadlift). Reports has not improved over time. Currently, limiting activity due to discomfort. No reports of instability, locking, clicking . No hx of knee injuries, surgeries. No hx hip, ankle, or back injuries. Family hx of RA (mother, onset 40's); no known inflammatory disease. Pain does not feel like it's moving around in knee. Reports that he is able to push through pain without difficulty, but states that it's annoying. Prior Treatments and Tests No imaging, previous PT Prior Functional Status Baseline Function- ADL's Independent Baseline Function- Mobility Independent Baseline Function- Recreation/Hobbies Exercise/weight lifting 5x/wk (combo leg, arm, back days), running as exercise prn Current Functional Impairments (Reported) Functional Limitations- Recreation/ currently limiting physical Hobbies activity unless necessary for work PT-OP-C Subjective Start: 04/17/23 18:16 Freq: Status: Active Protocol: Document 08/08/23 08:18 NM (Rec: 08/08/23 09:03 NM [id number]) OP-PT Subjective Patient Comments Patient Comments Pt reports isometrics feel good. He reports that he had his physical on Saturday, running (cutting, taking off) but states less than before. Wants to continue PT but might go on a brief hold to get blood work PT-OP-D Balance Start: 04/17/23 18:16 Freq: Status: Active Protocol: Document 04/18/23 08:14 NM (Rec: 04/18/23 09:44 NM [id number]) Balance Tests Single Limb Standing Single Limb- Right 10 sec, increased sway, no pain Single Limb- Left 10 sec, increased sway, no pain Tandem Tandem Standing 5 sec EC, 20 sec EO before LOB PT-OP-E Functional Tests Start: 04/17/23 18:16 Freq: Status: Active Protocol: Document 04/18/23 08:14 NM (Rec: 04/18/23 09:44 NM [id number]) Functional Tests Squat Test Score 10 Comments up and down pain, valgus, dec DF, Single Leg Squat Test Score 1 ea Comment deep pistol; valgus B, dec DF Other Eccentric step down Name of Test 4 step Comment B knee valgus, pronation, trendelenburg Hop Name of Test double leg hop; single leg hop Score pain with landing double hop; single leg hop pain with ascend/landing Comment lands with valgus on all attempts, pronation at ankle, hip drop PT-OP-F Manual Assessment Start: 04/17/23 18:16 Freq: Status: Active Protocol: Document 04/18/23 08:14 NM (Rec: 04/18/23 09:44 NM [id number]) Manual Assessments Soft Tissue Assessment Soft Tissue Mobility Assessment Decreased hamstring length bilaterally; not formally measured Joint Mobility Assessment Joint Mobility Assessment No B knee instability, no pain with tibial IR/ER. Decreased B hip AROM and PROM. Slight lateral patellar tracking with short and long sitting knee ext, decreased superior translation in sitting. B knee crepitus with repeated knee flex/ext PT-OP-G Mobility & Gait Start: 04/17/23 18:16 Freq: Status: Active Protocol: Document 04/18/23 08:14 NM (Rec: 04/18/23 09:44 NM [id number]) OP Gait Assessment Gait Gait Assistance Required: Independent Distance (Feet) 200 Assistive Devices Assistive Device None Comments Gait Comments Narrow stance. Increased pronation with gait, B foot ER in stance and during swing. Early toe off. Stair Climbing Evaluation Evaluation Level of Assist On Stairs Independent Devices Stair Climbing Assistive Devices None Technique/Endurance Stair Climbing Direction Ascend and Descend Stair Climbing Technique Step Over Step Number of Steps Climbed 4 Stair Climbing Set # Repetitions (reps) 1 Comments Stair Climbing Comments Anterior knee pain with descent, knee valgus and foot pronation bilaterally PT-OP-J Posture/Palpation/Skin Start: 04/17/23 18:16 Freq: Status: Active Protocol: Document 04/18/23 08:14 NM (Rec: 04/18/23 09:44 NM [id number]) Posture Evaluation Position Standing Evaluation View posterior, lateral Head/C-Spine Posture Forward Head T-Spine Posture Increased Kyphosis L-Spine Posture Increased Lordosis Shoulder Posture (L) Rounded,(R) Rounded Scapula Posture (L) Protracted,(R) Protracted Arm Posture (L) Internally Rotated,(R) Internally Rotated Pelvis Posture Anteriorly Tilted Weight Distribution Balanced Hip Posture (L) Externally Rotated,(R) Externally Rotated Knee Posture (L) Genu Valgus,(R) Genu Valgus Patellar Posture (L) Superior,(R) Superior,(L) Laterally Tilted,(R) Laterally Tilted Ankle/Foot Posture (L) Pronated,(R) Pronated Palpation Assessment Location R knee Palpation Location patella, fibula, joint line, tibia, medial and lateral condyles Palpation Findings Tenderness Palpation Details Tenderness along superomedial patella, worse after resisted extension; minimally tender to palpation. No other tenderness noted along patella , joint lines, tibia, femoral condyles. hips not tender to palpation L knee Palpation Location patella, fibula, joint line, tibia, medial and lateral condyles Palpation Findings Tenderness Palpation Details Tenderness along superomedial patella, worse after resisted extension; minimally tender to palpation. No other tenderness noted along patella , joint lines, tibia, femoral condyles. hips not tender to palpation Skin Assessment Other Assessments Skin Assessment Comments No swelling noted in B knees PT-OP-K Range of Motion Start: 04/17/23 18:16 Freq: Status: Active Protocol: Document 08/01/23 08:19 NM (Rec: 08/01/23 09:03 NM [id number]) Knee Goniometric Range of Motion Knee Right Flexion Active (degrees) 145 Flexion Passive (degrees) 147 Extension Active (degrees) 0 Hyper-Extension Active 4 Comments No pain with active flex/ext translation Left Flexion Active (degrees) 140 Flexion Passive (degrees) 145 Extension Active (degrees) 0 Hyper-Extension Active 5 Comments No pain with active flex/ext translation PT-OP-L Special Tests Start: 04/17/23 18:16 Freq: Status: Active Protocol: Document 04/18/23 08:14 NM (Rec: 04/18/23 09:44 NM [id number]) Special Tests Hip Special Tests scour Test Results - Comments bilaterally Labrum Test Results - Comments anterior and posterior labral tests; bilaterally SITA Test Results - Comments decreased mobility but not painful; bilaterally FADIR Test Results - Comments bilaterally Knee Special Tests Patellar Grind Test Test Results + Marlin Test Test Results - Comments bilaterally Posterior Sag Test Results - Comments bilaterally Posterior Draw Test Results - Comments bilaterally George Test Results - Comments bilaterally Anterior Draw Test Results - Comments bilaterally Varus Test Results - Comments 0 and 30 deg; bilaterally Valgus Test Results - Comments 0 and 30 deg; bilaterally PT-OP-M Strength Start: 04/17/23 18:16 Freq: Status: Active Protocol: Document 08/01/23 08:19 NM (Rec: 08/01/23 09:03 NM [id number]) Hip Strength Hip Manual Muscle Testing Right Flexion (L2) 5 Normal Extension (S1) 4+ Good+ Abduction 4+ Good+ Adduction 5 Normal External Rotation 5 Normal Internal Rotation 5 Normal Comments IE: 4-/5 MMT flex/abd/ext, 4/5 for add/IR/ER 05/22/23: 4/5 hip flex, 4+/5 for ext/abd 06/20/23: 4+/5 for hip abd/ext, 5/5 for all others 08/01/23: 5/5 Left Flexion (L2) 5 Normal Extension (S1) 4+ Good+ Abduction 4+ Good+ Adduction 5 Normal External Rotation 5 Normal Internal Rotation 5 Normal Comments IE: 4-/5 flex/ext/abd, 4/5 for ER/IR/ADD 05/22/23: 4/5 hip flex/abd, 4+/ 5 ext 06/20/23: 4+/5 for hip abd/ext, 5/5 for all others 08/01/23: 5/5 Knee Strength Knee Manual Muscle Testing Right Flexion (S2) 4+ Good+ Extension (L3) 4+ Good+ Comments IE: 4+/5, Pain with resisted extension 05/22/23: 4+/5 MMT, no pain 06/20/23: 4+/5, no pain 08/01/23: 4+/5 Left Flexion (S2) 4+ Good+ Extension (L3) 4+ Good+ Comments IE: 4+/5, Pain with resisted extension 05/22/23: no pain, 4+/5 06/20/23: 4+/5, no pain 08/01/23: 4+/5 PT-OP-Q Treatments Start: 04/17/23 18:16 Freq: Status: Active Protocol: Document 08/08/23 08:18 NM (Rec: 08/08/23 09:03 NM [id number]) Therapeutic Exercises Prone Exercises plank Prone Exercise Name mountain climber Side bilateral Equipment Used sliders under feet Reps/Minutes 60 Comments pain free Sidelying Exercises side plank Sidelying Exercise Name with hip abduction isometric Side bilateral Reps/Minutes 60 ea Comments cued neutral spine; positive feedback in glute Sitting Exercises quad isometric Sitting Exercise Name midrange 70 deg- RF (isometric ) Resistance 8 plates Reps/Minutes 4x45 hold 3' break between sets Comments tactile cue ankle DF neutral- good muscle tiring pnfree LAQ Sitting Exercise Name heavy slow Side bilateral Resistance 8 plates Reps/Minutes 1x8 Comments trialed in PT; quad fatigues Standing Exercises squats Standing Exercise Name wall squat quad isometric ( trialed) Reps/Minutes 1x45 with 3' break between ea Comments positive feedback in quad single leg lift Side bilateral Resistance 10# db (opp hand) Equipment Used to 8 box Reps/Minutes 2x10 Comments cued for neutral spine; between sets of isometrics SL sliders Standing Exercise Name hip and/add (lateral) > skater lunge Equipment Used slider Reps/Minutes 10 ea Comments cued for form Other Exercises stretching Other Exercise Name HS (bottoms up), hip flexor in 1/2 kneel /c foot on chair Side bilateral Equipment Used HS stretch to 8>4 box, foam under knee on floor Reps/Minutes 1. 60 breath holds, 2. 1x60 Comments pain free, cued for ppt during hip flexor stretch; bwtn isometric Neuro Re-Education Treatment Balance Activities triple ext Details for power/loading, knee control Reps/Duration 10 ea Comments 1. triple ext- cued for form, control, quad loading and alignment of single leg 2. triple ext w/ hop (single leg) 5 ea with rest between Requires increased time single leg stance Comments 1. for time, 2x60 ea on dynadisc 2. ball toss to ground on dynadisc, 60 ea leg Self-Care/Home Management Treatment Education Patient Education Body Mechanics,Home Exercise Program Other Education Education on isometric LAQ or wall sit isometric before/ after running for tendon pain management, awareness of body mechanics with running/cutting PT-OP-T Assessment and Plan Start: 04/17/23 18:16 Freq: Status: Active Protocol: Document 08/08/23 08:18 NM (Rec: 08/08/23 09:03 NM [id number]) Physical Therapy Assessment Goals Four Impairment strength Impairment B hip flex, ext, abd 4-/5 MMT Short Term Goal (STG) Pt will increase B hip flex, ext, and abd MMT to at least 4 /5 in order to demonstrate improved strength required for squats, stairs, and other functional activities STG Duration 5 weeks MET Safety Professional Goal (LTG) Pt will increase B hip flex, ext, and abd MMT to at least 5 /5 in order to demonstrate improved strength required for squats, stairs, and other functional activities 06/20/23: MET: 4+/5 for hip abd /ext, 5/5 for hip flex/ER/IR 08/01/23: 5/5, goal MET LTG Duration 10 weeks MET, GOAL UPDATED- MET Three Impairment HEP Impairment not performing HEP or daily exercise program Short Term Goal (STG) Pt will report compliance with HEP at least 3x/wk in order to demonstrate return to activity and to maximize gains made during PT sessions 05/22/23: 4-5x/wk STG Duration 5 weeks MET Shelter Goal (LTG) Pt will report at least 50% return to prior level of workouts 3x/wk in order to demonstrate return to activity , improved pain management, and maintenance program for independent exercise. 06/20/23: working out 2x/wk, less than 50% but improved since IE 08/01/23: not performing at least 3x/wk. Educated on stretching every day, strengthening 3x/wk LTG Duration 10 weeks PROGRESSING Two Impairment function Impairment 10 B squats painful with excess knee valgus and pronation Short Term Goal (STG) Pt will perform at least 10 bilateral squats without pain or compensation in order to demonstrate improved quad control and glute activation for functional activities. 05/22/23: 10 bilateral squats w /o pain or compensation using hip hinge STG Duration 5 weeks MET Safety Professional Goal (LTG) Pt will be able to perform at least 10 single leg squats without pain or compensation in order to demonstrate improved quad control and glute activation for functional activities. 06/20/23: able to perform 10 single leg squats with pain <1 /10, but demonstrates compensations with knee valgus melissa with increased depth, decreased ankle dorsiflexion, and excessive knee over toe with slight hip rotation (R side only) 08/01/23: 10 reps, quad pain only in midrange of squat, none with initiation or depth LTG Duration 10 weeks PROGRESSING, NOT MET One Impairment function Short Term Goal (STG) Pt will perform at least 10 eccentric step downs without compensation and reports of <3 /10 B knee pain in order to demonstrate improved hip strength and quad control 05/22/23: able to perform 10 step downs eccentric from 6 step with pain 1/10 L knee, 2/ 10 R knee before taping, 1/10 R knee with taping and 0/10 L knee with taping STG Duration 5 weeks MET Safety Professional Goal (LTG) Pt will be able to perform at least 12 stairs without reports of increased pain in order to demonstrate improved hip strength and quad control 06/20/23: 14 stairs with 1/10 R knee pain; demos decreased hip strength, ankle mobility, no valgus; 4 eccentric step down 08/01/23: reports still painful with stairs but minimal LTG Duration 10 weeks PROGRESSING, NOT MET Assessment Summary Assessment Pt pain free with quad isometric. Initiated 1 set of heavy slow for quad loading. Will initiate heavy-slow progression for quad/patellar tendon loading at home in upcoming sessions. Requires cues to maintain knee alignment during single leg activity and neutral spine. Demos improved glute and quad strength, progressing to power -type single leg activities. Pain free with small hopping. Pt continues to have pain with running and stairs at home, but he wants to continue with PT and feels like he is progressing; planning on asking PCP for further auth. PT reminding pt of body mechanics and maintain knee alignment. Pt would benefit from PT for tendon loading management and progression through tendon loading program to reduce pain symptoms with ADLs and return to activity. Physical Therapy Plan Frequency and Duration Frequency of Treatment 1-2x/wk Duration of treatment (weeks) 12 Plan of Care Start Date 06/20/23 Plan of Care End Date 09/13/23 Therapeutic Interventions Therapeutic Interventions Balance Training,Coordination Training,Gait Training,Home Exercise Program,Joint Mobilizations,Manual Therapy, Neuromuscular Re-education, Orthotic/Prosthetic Management ,Patient/Caregiver Education, Self-Care/Home Management,Soft Tissue Mobilization,Taping, Therapeutic Activities, Therapeutic Exercises Modalities Biofeedback,Cold Pack/Ice Massage,Electric Stimulation, Hot Packs,Traction- Mechanical ,Ultrasound,Vasopneumatic Devices Next Visit Focus/Plan Next Note Type Treatment Note Next Visit Plan quad tendon loading trial heavy slow LAQ, trial running/cutting Stretching quad, HS. LAQ in midrange isac 70% force 5x45 with 3' break between or wall sit 5x45 with 3' break between (progress from DL>SL). Estonian squat. Single leg balance and core strength PT POC: load Pat Ten/quad tendon, review single leg squat/RDL/leg press. Side plank, reverse nordic, skater lunge Manual prn: STM, patellar mobilizations,
--- NOTE | 2023-08-13 10:16 | PT.OTN ---
Current Diagnoses Pain in unspecified knee (08/13/23) Other abnormalities of gait and mobility (08/13/23) Weakness (08/13/23) Physical Therapy Treatment Note PT-OP-A Visit Information Start: 04/17/23 18:16 Freq: Status: Active Protocol: Document 08/13/23 08:17 NM (Rec: 08/13/23 09:02 NM [id number]) Out-Patient Physical Therapy Visit Information Visit Information Visit Type Progress Note Visit Start Time 08:17 Visit Stop Time 09:00 Visit Number 19 Evaluation Information Evaluation Date 04/18/23 PT-OP-B Current Condition Start: 04/17/23 18:16 Freq: Status: Active Protocol: Document 04/18/23 08:14 NM (Rec: 04/18/23 09:44 NM [id number]) Current Condition History of Current Condition Onset Date 2 years Current Complaints knee pain History of Current Condition Pt presents with B knee pain. Pt also has B wrist pain, R hip, and low back pain; reports pain not consistent. Pt doesn't have a specific known onset or mechanism of injury for knee pain, but believes that he was performing strenous workouts in the past which likely contributed (e.g. heavy weight lifting including squats, deadlift). Reports has not improved over time. Currently, limiting activity due to discomfort. No reports of instability, locking, clicking . No hx of knee injuries, surgeries. No hx hip, ankle, or back injuries. Family hx of RA (mother, onset 40's); no known inflammatory disease. Pain does not feel like it's moving around in knee. Reports that he is able to push through pain without difficulty, but states that it's annoying. Prior Treatments and Tests No imaging, previous PT Prior Functional Status Baseline Function- ADL's Independent Baseline Function- Mobility Independent Baseline Function- Recreation/Hobbies Exercise/weight lifting 5x/wk (combo leg, arm, back days), running as exercise prn Current Functional Impairments (Reported) Functional Limitations- Recreation/ currently limiting physical Hobbies activity unless necessary for work PT-OP-C Subjective Start: 04/17/23 18:16 Freq: Status: Active Protocol: Document 08/13/23 08:17 NM (Rec: 08/13/23 09:02 NM [id number]) OP-PT Subjective Patient Comments Patient Comments Pt reports no knee pain after last session. 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 States has very busy and has not contacted PCP for more auth PT-OP-D Balance Start: 04/17/23 18:16 Freq: Status: Active Protocol: Document 04/18/23 08:14 NM (Rec: 04/18/23 09:44 NM [id number]) Balance Tests Single Limb Standing Single Limb- Right 10 sec, increased sway, no pain Single Limb- Left 10 sec, increased sway, no pain Tandem Tandem Standing 5 sec EC, 20 sec EO before LOB PT-OP-E Functional Tests Start: 04/17/23 18:16 Freq: Status: Active Protocol: Document 04/18/23 08:14 NM (Rec: 04/18/23 09:44 NM [id number]) Functional Tests Squat Test Score 10 Comments up and down pain, valgus, dec DF, Single Leg Squat Test Score 1 ea Comment deep pistol; valgus B, dec DF Other Eccentric step down Name of Test 4 step Comment B knee valgus, pronation, trendelenburg Hop Name of Test double leg hop; single leg hop Score pain with landing double hop; single leg hop pain with ascend/landing Comment lands with valgus on all attempts, pronation at ankle, hip drop PT-OP-F Manual Assessment Start: 04/17/23 18:16 Freq: Status: Active Protocol: Document 04/18/23 08:14 NM (Rec: 04/18/23 09:44 NM [id number]) Manual Assessments Soft Tissue Assessment Soft Tissue Mobility Assessment Decreased hamstring length bilaterally; not formally measured Joint Mobility Assessment Joint Mobility Assessment No B knee instability, no pain with tibial IR/ER. Decreased B hip AROM and PROM. Slight lateral patellar tracking with short and long sitting knee ext, decreased superior translation in sitting. B knee crepitus with repeated knee flex/ext PT-OP-G Mobility & Gait Start: 04/17/23 18:16 Freq: Status: Active Protocol: Document 04/18/23 08:14 NM (Rec: 04/18/23 09:44 NM [id number]) OP Gait Assessment Gait Gait Assistance Required: Independent Distance (Feet) 200 Assistive Devices Assistive Device None Comments Gait Comments Narrow stance. Increased pronation with gait, B foot ER in stance and during swing. Early toe off. Stair Climbing Evaluation Evaluation Level of Assist On Stairs Independent Devices Stair Climbing Assistive Devices None Technique/Endurance Stair Climbing Direction Ascend and Descend Stair Climbing Technique Step Over Step Number of Steps Climbed 4 Stair Climbing Set # Repetitions (reps) 1 Comments Stair Climbing Comments Anterior knee pain with descent, knee valgus and foot pronation bilaterally PT-OP-J Posture/Palpation/Skin Start: 04/17/23 18:16 Freq: Status: Active Protocol: Document 04/18/23 08:14 NM (Rec: 04/18/23 09:44 NM [id number]) Posture Evaluation Position Standing Evaluation View posterior, lateral Head/C-Spine Posture Forward Head T-Spine Posture Increased Kyphosis L-Spine Posture Increased Lordosis Shoulder Posture (L) Rounded,(R) Rounded Scapula Posture (L) Protracted,(R) Protracted Arm Posture (L) Internally Rotated,(R) Internally Rotated Pelvis Posture Anteriorly Tilted Weight Distribution Balanced Hip Posture (L) Externally Rotated,(R) Externally Rotated Knee Posture (L) Genu Valgus,(R) Genu Valgus Patellar Posture (L) Superior,(R) Superior,(L) Laterally Tilted,(R) Laterally Tilted Ankle/Foot Posture (L) Pronated,(R) Pronated Palpation Assessment Location R knee Palpation Location patella, fibula, joint line, tibia, medial and lateral condyles Palpation Findings Tenderness Palpation Details Tenderness along superomedial patella, worse after resisted extension; minimally tender to palpation. No other tenderness noted along patella , joint lines, tibia, femoral condyles. hips not tender to palpation L knee Palpation Location patella, fibula, joint line, tibia, medial and lateral condyles Palpation Findings Tenderness Palpation Details Tenderness along superomedial patella, worse after resisted extension; minimally tender to palpation. No other tenderness noted along patella , joint lines, tibia, femoral condyles. hips not tender to palpation Skin Assessment Other Assessments Skin Assessment Comments No swelling noted in B knees PT-OP-K Range of Motion Start: 04/17/23 18:16 Freq: Status: Active Protocol: Document 08/13/23 08:17 NM (Rec: 08/13/23 09:02 NM [id number]) Hip Goniometric Range of Motion Hip right Flexion w/Knee Flexed 115 Extension 10 Abduction 20 Internal Rotation 17 External Rotation 30 Left Flexion w/Knee Flexed 115 Extension 10 Abduction 20 Internal Rotation 15 External Rotation 30 Knee Goniometric Range of Motion Knee Right Flexion Active (degrees) 145 Flexion Passive (degrees) 147 Extension Active (degrees) 0 Hyper-Extension Active 4 Comments No pain with active flex/ext translation Left Flexion Active (degrees) 140 Flexion Passive (degrees) 145 Extension Active (degrees) 0 Hyper-Extension Active 5 Comments No pain with active flex/ext translation PT-OP-L Special Tests Start: 04/17/23 18:16 Freq: Status: Active Protocol: Document 04/18/23 08:14 NM (Rec: 04/18/23 09:44 NM [id number]) Special Tests Hip Special Tests scour Test Results - Comments bilaterally Labrum Test Results - Comments anterior and posterior labral tests; bilaterally SITA Test Results - Comments decreased mobility but not painful; bilaterally FADIR Test Results - Comments bilaterally Knee Special Tests Patellar Grind Test Test Results + Marlin Test Test Results - Comments bilaterally Posterior Sag Test Results - Comments bilaterally Posterior Draw Test Results - Comments bilaterally George Test Results - Comments bilaterally Anterior Draw Test Results - Comments bilaterally Varus Test Results - Comments 0 and 30 deg; bilaterally Valgus Test Results - Comments 0 and 30 deg; bilaterally PT-OP-M Strength Start: 04/17/23 18:16 Freq: Status: Active Protocol: Document 08/13/23 08:17 NM (Rec: 08/13/23 09:02 NM [id number]) Hip Strength Hip Manual Muscle Testing Right Flexion (L2) 5 Normal Extension (S1) 4+ Good+ Abduction 4+ Good+ Adduction 5 Normal External Rotation 5 Normal Internal Rotation 5 Normal Comments IE: 4-/5 MMT flex/abd/ext, 4/5 for add/IR/ER 05/22/23: 4/5 hip flex, 4+/5 for ext/abd 06/20/23: 4+/5 for hip abd/ext, 5/5 for all others 08/13/23, 08/01/23: 5/5 Left Flexion (L2) 5 Normal Extension (S1) 4+ Good+ Abduction 4+ Good+ Adduction 5 Normal External Rotation 5 Normal Internal Rotation 5 Normal Comments IE: 4-/5 flex/ext/abd, 4/5 for ER/IR/ADD 05/22/23: 4/5 hip flex/abd, 4+/ 5 ext 06/20/23: 4+/5 for hip abd/ext, 5/5 for all others 08/13/23, 08/01/23: 5/5 Knee Strength Knee Manual Muscle Testing Right Flexion (S2) 4+ Good+ Extension (L3) 4+ Good+ Comments IE: 4+/5, Pain with resisted extension 05/22/23: 4+/5 MMT, no pain 06/20/23: 4+/5, no pain 08/13/23, 08/01/23: 4+/5 Left Flexion (S2) 4+ Good+ Extension (L3) 4+ Good+ Comments IE: 4+/5, Pain with resisted extension 05/22/23: no pain, 4+/5 06/20/23: 4+/5, no pain 08/13/23, 08/01/23: 4+/5 PT-OP-Q Treatments Start: 04/17/23 18:16 Freq: Status: Active Protocol: Document 08/13/23 08:17 NM (Rec: 08/13/23 09:02 NM [id number]) Therapeutic Exercises Sitting Exercises quad isometric Sitting Exercise Name wall squat Reps/Minutes 1x45 Comments post bounding, decrease in symptoms LAQ Sitting Exercise Name heavy slow (performed individual) Side bilateral Resistance 5 plates ea Reps/Minutes 3x8 with 3 concentric, 1 hold TKE, 3 eccentric Comments pain free; R quad tendon moves medially, nonpainful Standing Exercises squats Standing Exercise Name split squats Side bilateral Resistance 10# db ea hand Reps/Minutes 2x8 ea with 3 concentric, 1 hold, 3 eccentric Comments knee aligned with foot, pain free single leg lift Standing Exercise Name with db pass through between hands Side bilateral Resistance 10# db Equipment Used to 8 box Reps/Minutes 3x10 passes ea Comments between split squat sets, improved neutral spine Other Exercises stretching Other Exercise Name HS (bottoms up), hip flexor in 1/2 kneel /c foot on chair Side bilateral Equipment Used HS stretch to 8>4 box, foam under knee on floor Reps/Minutes 1. 60 breath holds, 2. 1x60 Comments post foam rolling Self STMs Other Exercise Name HS, quad, glutes, calves Side bilateral Equipment Used foam roller Reps/Minutes 2' Comments good form and relief reported. Neuro Re-Education Treatment Balance Activities bounding Comments 1. skips, 2x50 ft ea 2. high skips, 2x50 ft ea 3. bounding, 4x50 ft ea 4. jogging,4x50 ft ea triple ext Details for power/loading, knee control Reps/Duration 10 ea Comments 1. triple ext- cued for form, control, quad loading and alignment of single leg 2. triple ext w/ hop (single leg) 5 ea with rest between PT-OP-T Assessment and Plan Start: 04/17/23 18:16 Freq: Status: Active Protocol: Document 08/13/23 08:17 NM (Rec: 08/13/23 09:02 NM [id number]) Physical Therapy Assessment Goals Four Impairment strength Impairment B hip flex, ext, abd 4-/5 MMT Short Term Goal (STG) Pt will increase B hip flex, ext, and abd MMT to at least 4 /5 in order to demonstrate improved strength required for squats, stairs, and other functional activities STG Duration 5 weeks MET Bilingual Instructor Goal (LTG) Pt will increase B hip flex, ext, and abd MMT to at least 5 /5 in order to demonstrate improved strength required for squats, stairs, and other functional activities 06/20/23: MET: 4+/5 for hip abd /ext, 5/5 for hip flex/ER/IR 08/01/23: 5/5, goal MET LTG Duration 10 weeks MET, GOAL UPDATED- MET Three Impairment HEP Impairment not performing HEP or daily exercise program Short Term Goal (STG) Pt will report compliance with HEP at least 3x/wk in order to demonstrate return to activity and to maximize gains made during PT sessions 05/22/23: 4-5x/wk STG Duration 5 weeks MET Prison Goal (LTG) Pt will report at least 50% return to prior level of workouts 3x/wk in order to demonstrate return to activity , improved pain management, and maintenance program for independent exercise. 06/20/23: working out 2x/wk, less than 50% but improved since IE 08/01/23: not performing at least 3x/wk. Educated on stretching every day, strengthening 3x/wk LTG Duration 10 weeks PROGRESSING Two Impairment function Impairment 10 B squats painful with excess knee valgus and pronation Short Term Goal (STG) Pt will perform at least 10 bilateral squats without pain or compensation in order to demonstrate improved quad control and glute activation for functional activities. 05/22/23: 10 bilateral squats w /o pain or compensation using hip hinge STG Duration 5 weeks MET Prison Goal (LTG) Pt will be able to perform at least 10 single leg squats without pain or compensation in order to demonstrate improved quad control and glute activation for functional activities. 06/20/23: able to perform 10 single leg squats with pain <1 /10, but demonstrates compensations with knee valgus melissa with increased depth, decreased ankle dorsiflexion, and excessive knee over toe with slight hip rotation (R side only) 08/01/23: 10 reps, quad pain only in midrange of squat, none with initiation or depth LTG Duration 10 weeks PROGRESSING, NOT MET One Impairment function Short Term Goal (STG) Pt will perform at least 10 eccentric step downs without compensation and reports of <3 /10 B knee pain in order to demonstrate improved hip strength and quad control 05/22/23: able to perform 10 step downs eccentric from 6 step with pain 1/10 L knee, 2/ 10 R knee before taping, 1/10 R knee with taping and 0/10 L knee with taping STG Duration 5 weeks MET Prison Goal (LTG) Pt will be able to perform at least 12 stairs without reports of increased pain in order to demonstrate improved hip strength and quad control 06/20/23: 14 stairs with 1/10 R knee pain; demos decreased hip strength, ankle mobility, no valgus; 4 eccentric step down 08/01/23: reports still painful with stairs but minimal LTG Duration 10 weeks PROGRESSING, NOT MET Assessment Summary Assessment Pt demonstrates good tolerance to heavy-slow LAQ and split squat progression for quad/ patellar tendon loading. Initiated power sequence with bounding, skipping, and jogging. Pt has mild symptom increase with bounding, none with jogging. No change in symptoms with triple ext. Mild decrease with isometrics but no significant change. PT educated pt on being compliant with HEP especially for stretching and progressive tendon loading for symptom management with higher level activities including running. PT also educated on reaching out to PCP for more auth if wanting more PT, blood work for inflammatory markers due to family hx, and possible referral to specialist to see if pt would benefit from injections for pain management . Physical Therapy Plan Frequency and Duration Frequency of Treatment 1-2x/wk Duration of treatment (weeks) 12 Plan of Care Start Date 06/20/23 Plan of Care End Date 09/13/23 Therapeutic Interventions Therapeutic Interventions Balance Training,Coordination Training,Gait Training,Home Exercise Program,Joint Mobilizations,Manual Therapy, Neuromuscular Re-education, Orthotic/Prosthetic Management ,Patient/Caregiver Education, Self-Care/Home Management,Soft Tissue Mobilization,Taping, Therapeutic Activities, Therapeutic Exercises Modalities Biofeedback,Cold Pack/Ice Massage,Electric Stimulation, Hot Packs,Traction- Mechanical ,Ultrasound,Vasopneumatic Devices Next Visit Focus/Plan Next Note Type Treatment Note Next Visit Plan quad tendon loading heavy slow LAQ and split squat with knee over toe or elevated, retrain jumping and cutting Stretching quad, HS. LAQ in midrange isac 70% force 5x45 with 3' break between or wall sit 5x45 with 3' break between (progress from DL>SL). Sudanese squat. Single leg balance and core strength PT POC: load Pat Ten/quad tendon, review single leg squat/RDL/leg press. Side plank, reverse nordic, skater lunge Manual prn: STM, patellar mobilizations,
--- NOTE | 2023-08-26 15:38 | PT.OTN ---
Current Diagnoses Pain in unspecified knee (08/26/23) Other abnormalities of gait and mobility (08/26/23) Weakness (08/26/23) Physical Therapy Treatment Note PT-OP-A Visit Information Start: 04/17/23 18:16 Freq: Status: Active Protocol: Document 08/26/23 09:04 NM (Rec: 08/26/23 09:46 NM [id number]) Out-Patient Physical Therapy Visit Information Visit Information Visit Type Progress Note Visit Start Time 09:04 Visit Stop Time 09:44 Visit Number 20 Evaluation Information Evaluation Date 04/18/23 PT-OP-B Current Condition Start: 04/17/23 18:16 Freq: Status: Active Protocol: Document 04/18/23 08:14 NM (Rec: 04/18/23 09:44 NM [id number]) Current Condition History of Current Condition Onset Date 2 years Current Complaints knee pain History of Current Condition Pt presents with B knee pain. Pt also has B wrist pain, R hip, and low back pain; reports pain not consistent. Pt doesn't have a specific known onset or mechanism of injury for knee pain, but believes that he was performing strenous workouts in the past which likely contributed (e.g. heavy weight lifting including squats, deadlift). Reports has not improved over time. Currently, limiting activity due to discomfort. No reports of instability, locking, clicking . No hx of knee injuries, surgeries. No hx hip, ankle, or back injuries. Family hx of RA (mother, onset 40's); no known inflammatory disease. Pain does not feel like it's moving around in knee. Reports that he is able to push through pain without difficulty, but states that it's annoying. Prior Treatments and Tests No imaging, previous PT Prior Functional Status Baseline Function- ADL's Independent Baseline Function- Mobility Independent Baseline Function- Recreation/Hobbies Exercise/weight lifting 5x/wk (combo leg, arm, back days), running as exercise prn Current Functional Impairments (Reported) Functional Limitations- Recreation/ currently limiting physical Hobbies activity unless necessary for work PT-OP-C Subjective Start: 04/17/23 18:16 Freq: Status: Active Protocol: Document 08/26/23 09:04 NM (Rec: 08/26/23 09:46 NM [id number]) OP-PT Subjective Patient Comments Patient Comments Pt reports no pain or soreness in both knees since last visit. States has been doing HEP 3x/wk. Still feels it, still annoying with stairs, running, or hiking. Reports still signficantly improved. Feels it less frequently. Taking breaks between sets for LAQ but not entire time. Reports most discomfort with jumping when getting down from tractor or trunk PT-OP-D Balance Start: 04/17/23 18:16 Freq: Status: Active Protocol: Document 04/18/23 08:14 NM (Rec: 04/18/23 09:44 NM [id number]) Balance Tests Single Limb Standing Single Limb- Right 10 sec, increased sway, no pain Single Limb- Left 10 sec, increased sway, no pain Tandem Tandem Standing 5 sec EC, 20 sec EO before LOB PT-OP-E Functional Tests Start: 04/17/23 18:16 Freq: Status: Active Protocol: Document 04/18/23 08:14 NM (Rec: 04/18/23 09:44 NM [id number]) Functional Tests Squat Test Score 10 Comments up and down pain, valgus, dec DF, Single Leg Squat Test Score 1 ea Comment deep pistol; valgus B, dec DF Other Eccentric step down Name of Test 4 step Comment B knee valgus, pronation, trendelenburg Hop Name of Test double leg hop; single leg hop Score pain with landing double hop; single leg hop pain with ascend/landing Comment lands with valgus on all attempts, pronation at ankle, hip drop PT-OP-F Manual Assessment Start: 04/17/23 18:16 Freq: Status: Active Protocol: Document 04/18/23 08:14 NM (Rec: 04/18/23 09:44 NM [id number]) Manual Assessments Soft Tissue Assessment Soft Tissue Mobility Assessment Decreased hamstring length bilaterally; not formally measured Joint Mobility Assessment Joint Mobility Assessment No B knee instability, no pain with tibial IR/ER. Decreased B hip AROM and PROM. Slight lateral patellar tracking with short and long sitting knee ext, decreased superior translation in sitting. B knee crepitus with repeated knee flex/ext PT-OP-G Mobility & Gait Start: 04/17/23 18:16 Freq: Status: Active Protocol: Document 04/18/23 08:14 NM (Rec: 04/18/23 09:44 NM [id number]) OP Gait Assessment Gait Gait Assistance Required: Independent Distance (Feet) 200 Assistive Devices Assistive Device None Comments Gait Comments Narrow stance. Increased pronation with gait, B foot ER in stance and during swing. Early toe off. Stair Climbing Evaluation Evaluation Level of Assist On Stairs Independent Devices Stair Climbing Assistive Devices None Technique/Endurance Stair Climbing Direction Ascend and Descend Stair Climbing Technique Step Over Step Number of Steps Climbed 4 Stair Climbing Set # Repetitions (reps) 1 Comments Stair Climbing Comments Anterior knee pain with descent, knee valgus and foot pronation bilaterally PT-OP-J Posture/Palpation/Skin Start: 04/17/23 18:16 Freq: Status: Active Protocol: Document 04/18/23 08:14 NM (Rec: 04/18/23 09:44 NM [id number]) Posture Evaluation Position Standing Evaluation View posterior, lateral Head/C-Spine Posture Forward Head T-Spine Posture Increased Kyphosis L-Spine Posture Increased Lordosis Shoulder Posture (L) Rounded,(R) Rounded Scapula Posture (L) Protracted,(R) Protracted Arm Posture (L) Internally Rotated,(R) Internally Rotated Pelvis Posture Anteriorly Tilted Weight Distribution Balanced Hip Posture (L) Externally Rotated,(R) Externally Rotated Knee Posture (L) Genu Valgus,(R) Genu Valgus Patellar Posture (L) Superior,(R) Superior,(L) Laterally Tilted,(R) Laterally Tilted Ankle/Foot Posture (L) Pronated,(R) Pronated Palpation Assessment Location R knee Palpation Location patella, fibula, joint line, tibia, medial and lateral condyles Palpation Findings Tenderness Palpation Details Tenderness along superomedial patella, worse after resisted extension; minimally tender to palpation. No other tenderness noted along patella , joint lines, tibia, femoral condyles. hips not tender to palpation L knee Palpation Location patella, fibula, joint line, tibia, medial and lateral condyles Palpation Findings Tenderness Palpation Details Tenderness along superomedial patella, worse after resisted extension; minimally tender to palpation. No other tenderness noted along patella , joint lines, tibia, femoral condyles. hips not tender to palpation Skin Assessment Other Assessments Skin Assessment Comments No swelling noted in B knees PT-OP-K Range of Motion Start: 04/17/23 18:16 Freq: Status: Active Protocol: Document 08/26/23 09:04 NM (Rec: 08/26/23 09:46 NM [id number]) Knee Goniometric Range of Motion Knee Right Flexion Active (degrees) 145 Flexion Passive (degrees) 147 Extension Active (degrees) 0 Hyper-Extension Active 4 Comments No pain with active flex/ext translation Left Flexion Active (degrees) 140 Flexion Passive (degrees) 145 Extension Active (degrees) 0 Hyper-Extension Active 5 Comments No pain with active flex/ext translation PT-OP-L Special Tests Start: 04/17/23 18:16 Freq: Status: Active Protocol: Document 04/18/23 08:14 NM (Rec: 04/18/23 09:44 NM [id number]) Special Tests Hip Special Tests scour Test Results - Comments bilaterally Labrum Test Results - Comments anterior and posterior labral tests; bilaterally SITA Test Results - Comments decreased mobility but not painful; bilaterally FADIR Test Results - Comments bilaterally Knee Special Tests Patellar Grind Test Test Results + Marlin Test Test Results - Comments bilaterally Posterior Sag Test Results - Comments bilaterally Posterior Draw Test Results - Comments bilaterally George Test Results - Comments bilaterally Anterior Draw Test Results - Comments bilaterally Varus Test Results - Comments 0 and 30 deg; bilaterally Valgus Test Results - Comments 0 and 30 deg; bilaterally PT-OP-M Strength Start: 04/17/23 18:16 Freq: Status: Active Protocol: Document 08/26/23 09:04 NM (Rec: 08/26/23 09:46 NM [id number]) Hip Strength Hip Manual Muscle Testing Right Flexion (L2) 5 Normal Extension (S1) 4+ Good+ Abduction 4+ Good+ Adduction 5 Normal External Rotation 5 Normal Internal Rotation 5 Normal Comments IE: 4-/5 MMT flex/abd/ext, 4/5 for add/IR/ER 05/22/23: 4/5 hip flex, 4+/5 for ext/abd 06/20/23: 4+/5 for hip abd/ext, 5/5 for all others 08/13/23, 08/01/23: 5/5 Left Flexion (L2) 5 Normal Extension (S1) 4+ Good+ Abduction 4+ Good+ Adduction 5 Normal External Rotation 5 Normal Internal Rotation 5 Normal Comments IE: 4-/5 flex/ext/abd, 4/5 for ER/IR/ADD 05/22/23: 4/5 hip flex/abd, 4+/ 5 ext 06/20/23: 4+/5 for hip abd/ext, 5/5 for all others 08/26/23, 08/13/23, 08/01/23: 5/5 Knee Strength Knee Manual Muscle Testing Right Flexion (S2) 4+ Good+ Extension (L3) 4+ Good+ Comments IE: 4+/5, Pain with resisted extension 05/22/23: 4+/5 MMT, no pain 06/20/23: 4+/5, no pain 08/26/23, 08/13/23, 08/01/23: 4+/5 Left Flexion (S2) 4+ Good+ Extension (L3) 4+ Good+ Comments IE: 4+/5, Pain with resisted extension 05/22/23: no pain, 4+/5 06/20/23: 4+/5, no pain 08/26/23, 08/13/23, 08/01/23: 4+/5 PT-OP-Q Treatments Start: 04/17/23 18:16 Freq: Status: Active Protocol: Document 08/26/23 09:04 NM (Rec: 08/26/23 09:46 NM [id number]) Therapeutic Exercises Sitting Exercises LAQ Sitting Exercise Name heavy slow (performed individual) Side bilateral Resistance 5 plates ea Reps/Minutes 3x8 with 3 concentric, 1 hold TKE, 3 eccentric Comments pain free; crepitus Standing Exercises single leg squat Standing Exercise Name single leg squat to chair ( eccentric) Side bilateral Equipment Used mesh chair, mirror for visual cues Reps/Minutes 10 ea Comments crepitus; pain free; cued to maintain improved control w/ descent glute med isometric Standing Exercise Name standing (added to HEP- pt has picture) Side bilateral Resistance level 1 band at ankles Equipment Used 8 step, 10# db for counter balance Reps/Minutes 60 ea Comments improved knee stability, minimal knee valgus and self corrects wall squats Standing Exercise Name single leg wall squat isometrics Side bilateral Equipment Used just above 90 deg at knee Reps/Minutes 5x30, 30 between sets Comments pain free PT-OP-T Assessment and Plan Start: 04/17/23 18:16 Freq: Status: Active Protocol: Document 08/26/23 09:04 NM (Rec: 07/01/24 09:46 NM [id number]) Physical Therapy Assessment Goals Six Impairment activity/ADLs 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) Pt will report no knee pain or no increase in B knee pain with descending from truck in order to demonstrate improved QOL and 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 LTG Duration 12 weeks Five Impairment activity/ADLs Impairment pain reported with hiking along quad and patellar tendons Prison Goal (LTG) Pt will report no increase in baseline knee pain with hiking easy-moderate level hikes in order to demonstrate improved activity tolerance and return to PLOF LTG Duration 12 weeks Four Impairment strength Impairment B hip flex, ext, abd 4-/5 MMT Short Term Goal (STG) Pt will increase B hip flex, ext, and abd MMT to at least 4 /5 in order to demonstrate improved strength required for squats, stairs, and other functional activities STG Duration 5 weeks MET Prison Goal (LTG) Pt will increase B hip flex, ext, and abd MMT to at least 5 /5 in order to demonstrate improved strength required for squats, stairs, and other functional activities 06/20/23: MET: 4+/5 for hip abd /ext, 5/5 for hip flex/ER/IR 08/01/23: 5/5, goal MET LTG Duration 10 weeks MET, GOAL UPDATED- MET Three Impairment HEP Impairment not performing HEP or daily exercise program Short Term Goal (STG) Pt will report compliance with HEP at least 3x/wk in order to demonstrate return to activity and to maximize gains made during PT sessions 05/22/23: 4-5x/wk STG Duration 5 weeks MET Head 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 06/20/23: working out 2x/wk, less than 50% but improved since IE 08/01/23: not performing at least 3x/wk. Educated on stretching every day, strengthening 3x/wk 08/26/23: 3x/wk LTG Duration 10 weeks MET Two Impairment function Impairment 10 B squats painful with excess knee valgus and pronation Short Term Goal (STG) Pt will perform at least 10 bilateral squats without pain or compensation in order to demonstrate improved quad control and glute activation for functional activities. 3/27/24: 10 bilateral squats w /o pain or compensation using hip hinge STG Duration 5 weeks MET Head Waiter/Waitress Banquet Goal (LTG) Pt will be able to perform at least 10 single leg squats without pain or compensation in order to demonstrate improved quad control and glute activation for functional activities. 06/20/23: able to perform 10 single leg squats with pain <1 /10, but demonstrates compensations with knee valgus melissa with increased depth, decreased ankle dorsiflexion, and excessive knee over toe with slight hip rotation (R side only) 08/01/23: 10 reps, quad pain only in midrange of squat, none with initiation or depth 08/26/23: 10 reps bilaterally from chair, w/o pain and good form but less control on descent with RLE LTG Duration 10 weeks MET One Impairment function Short Term Goal (STG) Pt will perform at least 10 eccentric step downs without compensation and reports of <3 /10 B knee pain in order to demonstrate improved hip strength and quad control 05/22/23: able to perform 10 step downs eccentric from 6 step with pain 1/10 L knee, 2/ 10 R knee before taping, 1/10 R knee with taping and 0/10 L knee with taping STG Duration 5 weeks MET Head Waiter/Waitress Banquet Goal (LTG) Pt will be able to perform at least 12 stairs without reports of increased pain in order to demonstrate improved hip strength and quad control 06/20/23: 14 stairs with 1/10 R knee pain; demos decreased hip strength, ankle mobility, no valgus; 4 eccentric step down 08/01/23: reports still painful with stairs but minimal 08/26/23: pain reported if large number of stairs, more similar to hiking vs stairs LTG Duration 10 weeks MET Progress Towards Goals Progress Towards Goals Goals Met Progress Comments Updated and added 2 goals to reflect current status Assessment Summary Assessment Pt continues to have good tolerance for heavy-slow LAQ. Unable to progress resistance with LAQ, but pt demonstrates improved quad control. Progressed from split squat to single leg wall squat. Kept as isometric to promote quad and glute strength. Pt pain free with all activities and reports good feedback. However , pt's R quad and glute fatigue more quickly than his LLE and are slightly more limited than his RLE. 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 PT instructed pt that he needs more auth to continue, which pt is planning to reach out to his PCP for in order to continue. Physical Therapy Plan Frequency and Duration Frequency of Treatment 1x/Week Duration of treatment (weeks) 12 Plan of Care Start Date 08/26/23 Plan of Care End Date 11/22/23 Therapeutic Interventions Therapeutic Interventions Balance Training,Coordination Training,Gait Training,Home Exercise Program,Joint Mobilizations,Manual Therapy, Neuromuscular Re-education, Orthotic/Prosthetic Management ,Patient/Caregiver Education, Self-Care/Home Management,Soft Tissue Mobilization,Taping, Therapeutic Activities, Therapeutic Exercises Modalities Biofeedback,Cold Pack/Ice Massage,Electric Stimulation, Hot Packs,Traction- Mechanical ,Ultrasound,Vasopneumatic Devices Next Visit Focus/Plan Next Note Type Treatment Note Next Visit Plan quad tendon loading heavy slow LAQ and split squat with knee over toe or elevated, SL wall squat (non- isometric), retrain jumping and cutting if tolerated ( floor jump, DL jump box/depth/ drop, SL jump box/depth/drop) Stretching quad, HS. PT POC: load Pat Ten/quad tendon, review single leg squat/RDL/leg press. Side plank, reverse nordic, skater lunge Manual prn: STM, patellar mobilizations,
--- NOTE | 2023-08-26 15:39 | PT.OPPOC ---
Physical, Occupational & Speech Therapy At [facility] Current Diagnoses Pain in unspecified knee (08/26/23) Other abnormalities of gait and mobility (08/26/23) Weakness (08/26/23) Visit Care Team Role Provider Type THADDEUS Garcia Attending Provider Non-Staff Family Provider Primary Care Provider Referring Provider Specialty: Nursing Address: 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) Pt will report no knee pain or no increase in B knee pain with descending from truck in order to demonstrate improved QOL and ability to participate in work-related activities at his [place] LTG Duration 12 weeks Five Impairment activity/ADLs Impairment pain reported with hiking along quad and patellar tendons Graphic Designer Goal (LTG) Pt will report no increase in baseline knee pain with hiking easy-moderate level hikes in order to demonstrate improved activity tolerance and return to PLOF LTG Duration 12 weeks Four Impairment strength Impairment B hip flex, ext, abd 4-/5 MMT Short Term Goal (STG) Pt will increase B hip flex, ext, and abd MMT to at least 4 /5 in order to demonstrate improved strength required for squats, stairs, and other functional activities STG Duration 5 weeks MET [facility] Goal (LTG) Pt will increase B hip flex, ext, and abd MMT to at least 5 /5 in order to demonstrate improved strength required for squats, stairs, and other functional activities 06/20/23: MET: 4+/5 for hip abd /ext, 5/5 for hip flex/ER/IR 08/01/23: 5/5, goal MET LTG Duration 10 weeks MET, GOAL UPDATED- MET Three Impairment HEP Impairment not performing HEP or daily exercise program Short Term Goal (STG) Pt will report compliance with HEP at least 3x/wk in order to demonstrate return to activity and to maximize gains made during PT sessions 05/22/23: 4-5x/wk STG Duration 5 weeks MET Graphic Designer Goal (LTG) Pt will report at least 50% return to prior level of workouts 3x/wk in order to demonstrate return to activity , improved pain management, and maintenance program for independent exercise. 06/20/23: working out 2x/wk, less than 50% but improved since IE 08/01/23: not performing at least 3x/wk. Educated on stretching every day, strengthening 3x/wk 08/26/23: 3x/wk LTG Duration 10 weeks MET Two Impairment function Impairment 10 B squats painful with excess knee valgus and pronation Short Term Goal (STG) Pt will perform at least 10 bilateral squats without pain or compensation in order to demonstrate improved quad control and glute activation for functional activities. 05/22/23: 10 bilateral squats w /o pain or compensation using hip hinge STG Duration 5 weeks MET Graphic Designer Goal (LTG) Pt will be able to perform at least 10 single leg squats without pain or compensation in order to demonstrate improved quad control and glute activation for functional activities. 06/20/23: able to perform 10 single leg squats with pain <1 /10, but demonstrates compensations with knee valgus melissa with increased depth, decreased ankle dorsiflexion, and excessive knee over toe with slight hip rotation (R side only) 08/01/23: 10 reps, quad pain only in midrange of squat, none with initiation or depth 08/26/23: 10 reps bilaterally from chair, w/o pain and good form but less control on descent with RLE LTG Duration 10 weeks MET One Impairment function Short Term Goal (STG) Pt will perform at least 10 eccentric step downs without compensation and reports of <3 /10 B knee pain in order to demonstrate improved hip strength and quad control 05/22/23: able to perform 10 step downs eccentric from 6 step with pain 1/10 L knee, 2/ 10 R knee before taping, 1/10 R knee with taping and 0/10 L knee with taping STG Duration 5 weeks MET [facility] Goal (LTG) Pt will be able to perform at least 12 stairs without reports of increased pain in order to demonstrate improved hip strength and quad control 06/20/23: 14 stairs with 1/10 R knee pain; demos decreased hip strength, ankle mobility, no valgus; 4 eccentric step down 08/01/23: reports still painful with stairs but minimal 08/26/23: pain reported if large number of stairs, more similar to hiking vs stairs LTG Duration 10 weeks MET Progress Towards Goals Progress Towards Goals Goals Met Progress Comments Updated and added 2 goals to reflect current status Assessment Summary Assessment Pt has been seen x19 visits since evaluation in March for B knee pain related to quad/patellar tendon. Pt has slowly been progressing with quad and patellar tendon loading programs. Currently, he is progressing well with tendon loading progression, in heavy-slow phase at this time . However, he continues to report patellar and quad tendon pain with running, occasionally with stairs, descending from his car and hiking. He is unable to tolerate increased energy storage and release, which is necessary for his job requirements, ADLs, and recreational activities. Since beginning PT, pt's pain has significantly reduced so that he no longer has pain with rest. He has had minimal compliance with HEP previously , partially due to work requirements; however, this has improved with scheduled tendon loading program provided by PT. Pt also has poor hip muscle and ankle flexibility, which is also being addressed and limits progression. Pt would benefit from further skilled PT to monitor heavy-slow progression and advance with supervision through energy storage and power exercises in order to improve ability to participate in recreational activities and return to [place]. Physical Therapy Plan Frequency and Duration Frequency of Treatment 1x/Week Duration of treatment (weeks) 12 Plan of Care Start Date 08/26/23 Plan of Care End Date 11/22/23 Therapeutic Interventions Therapeutic Interventions Balance Training,Coordination Training,Gait Training,Home Exercise Program,Joint Mobilizations,Manual Therapy, Neuromuscular Re-education, Orthotic/Prosthetic Management ,Patient/Caregiver Education, Self-Care/Home Management,Soft Tissue Mobilization,Taping, Therapeutic Activities, Therapeutic Exercises Modalities Biofeedback,Cold Pack/Ice Massage,Electric Stimulation, Hot Packs,Traction- Mechanical ,Ultrasound,Vasopneumatic Devices Next Visit Focus/Plan Next Note Type Treatment Note Next Visit Plan quad tendon loading heavy slow LAQ and split squat with knee over toe or elevated, SL wall squat (non- isometric), retrain jumping and cutting if tolerated ( floor jump, DL jump box/depth/ drop, SL jump box/depth/drop) Stretching quad, HS. PT POC: load Pat Ten/quad tendon, review single leg squat/RDL/leg press. Side plank, reverse nordic, skater lunge Manual prn: STM, patellar mobilizations, Plan of Care Dates Plan of Care Start Date 08/26/23 Plan of Care End Date 11/22/23 Electronically Signed by: Emily Shen, PT 08/26/23 0820 If you are in agreement with this Plan of Care, please return a signed and dated copy. I have reviewed this Plan of Care and certify that the skilled therapy services above are required to meet the patient?s needs. Physician Signature Date Printed Name and Credentials Clinical Instructor Signature Printed Name and Credentials
--- NOTE | 2023-10-04 08:55 | PT.OPDS ---
Current Diagnoses Pain in unspecified knee (08/26/23) Other abnormalities of gait and mobility (08/26/23) Weakness (08/26/23) Visit Care Team Role Provider Type THADDEUS Garcia Attending Provider Non-Staff Family Provider Primary Care Provider Referring Provider Specialty: Nursing Address: [facility], Email: Visit Number Visit Number 20 Discharge Summary PT-OP-B Current Condition Start: 04/17/23 18:16 Freq: Status: Active Protocol: Document 04/18/23 08:14 NM (Rec: 04/18/23 09:44 NM [id number]) Current Condition History of Current Condition Onset Date 2 years Current Complaints knee pain History of Current Condition Pt presents with B knee pain. Pt also has B wrist pain, R hip, and low back pain; reports pain not consistent. Pt doesn't have a specific known onset or mechanism of injury for knee pain, but believes that he was performing strenous workouts in the past which likely contributed (e.g. heavy weight lifting including squats, deadlift). Reports has not improved over time. Currently, limiting activity due to discomfort. No reports of instability, locking, clicking . No hx of knee injuries, surgeries. No hx hip, ankle, or back injuries. Family hx of RA (mother, onset 40's); no known inflammatory disease. Pain does not feel like it's moving around in knee. Reports that he is able to push through pain without difficulty, but states that it's annoying. Prior Treatments and Tests No imaging, previous PT Prior Functional Status Baseline Function- ADL's Independent Baseline Function- Mobility Independent Baseline Function- Recreation/Hobbies Exercise/weight lifting 5x/wk (combo leg, arm, back days), running as exercise prn Current Functional Impairments (Reported) Functional Limitations- Recreation/ currently limiting physical Hobbies activity unless necessary for work PT-OP-C Subjective Start: 04/17/23 18:16 Freq: Status: Active Protocol: Document 08/26/23 09:04 NM (Rec: 08/26/23 09:46 NM [id number]) OP-PT Subjective Patient Comments Patient Comments Pt reports no pain or soreness in both knees since last visit. States has been doing HEP 3x/wk. Still feels it, still annoying with stairs, running, or hiking. Reports still signficantly improved. Feels it less frequently. Taking breaks between sets for LAQ but not entire time. Reports most discomfort with jumping when getting down from tractor or trunk PT-OP-D Balance Start: 04/17/23 18:16 Freq: Status: Active Protocol: Document 04/18/23 08:14 NM (Rec: 04/18/23 09:44 NM [id number]) Balance Tests Single Limb Standing Single Limb- Right 10 sec, increased sway, no pain Single Limb- Left 10 sec, increased sway, no pain Tandem Tandem Standing 5 sec EC, 20 sec EO before LOB PT-OP-E Functional Tests Start: 04/17/23 18:16 Freq: Status: Active Protocol: Document 04/18/23 08:14 NM (Rec: 04/18/23 09:44 NM [id number]) Functional Tests Squat Test Score 10 Comments up and down pain, valgus, dec DF, Single Leg Squat Test Score 1 ea Comment deep pistol; valgus B, dec DF Other Eccentric step down Name of Test 4 step Comment B knee valgus, pronation, trendelenburg Hop Name of Test double leg hop; single leg hop Score pain with landing double hop; single leg hop pain with ascend/landing Comment lands with valgus on all attempts, pronation at ankle, hip drop PT-OP-F Manual Assessment Start: 04/17/23 18:16 Freq: Status: Active Protocol: Document 04/18/23 08:14 NM (Rec: 04/18/23 09:44 NM [id number]) Manual Assessments Soft Tissue Assessment Soft Tissue Mobility Assessment Decreased hamstring length bilaterally; not formally measured Joint Mobility Assessment Joint Mobility Assessment No B knee instability, no pain with tibial IR/ER. Decreased B hip AROM and PROM. Slight lateral patellar tracking with short and long sitting knee ext, decreased superior translation in sitting. B knee crepitus with repeated knee flex/ext PT-OP-G Mobility & Gait Start: 04/17/23 18:16 Freq: Status: Active Protocol: Document 04/18/23 08:14 NM (Rec: 04/18/23 09:44 NM [id number]) OP Gait Assessment Gait Gait Assistance Required: Independent Distance (Feet) 200 Assistive Devices Assistive Device None Comments Gait Comments Narrow stance. Increased pronation with gait, B foot ER in stance and during swing. Early toe off. Stair Climbing Evaluation Evaluation Level of Assist On Stairs Independent Devices Stair Climbing Assistive Devices None Technique/Endurance Stair Climbing Direction Ascend and Descend Stair Climbing Technique Step Over Step Number of Steps Climbed 4 Stair Climbing Set # Repetitions (reps) 1 Comments Stair Climbing Comments Anterior knee pain with descent, knee valgus and foot pronation bilaterally PT-OP-J Posture/Palpation/Skin Start: 04/17/23 18:16 Freq: Status: Active Protocol: Document 04/18/23 08:14 NM (Rec: 04/18/23 09:44 NM [id number]) Posture Evaluation Position Standing Evaluation View posterior, lateral Head/C-Spine Posture Forward Head T-Spine Posture Increased Kyphosis L-Spine Posture Increased Lordosis Shoulder Posture (L) Rounded,(R) Rounded Scapula Posture (L) Protracted,(R) Protracted Arm Posture (L) Internally Rotated,(R) Internally Rotated Pelvis Posture Anteriorly Tilted Weight Distribution Balanced Hip Posture (L) Externally Rotated,(R) Externally Rotated Knee Posture (L) Genu Valgus,(R) Genu Valgus Patellar Posture (L) Superior,(R) Superior,(L) Laterally Tilted,(R) Laterally Tilted Ankle/Foot Posture (L) Pronated,(R) Pronated Palpation Assessment Location R knee Palpation Location patella, fibula, joint line, tibia, medial and lateral condyles Palpation Findings Tenderness Palpation Details Tenderness along superomedial patella, worse after resisted extension; minimally tender to palpation. No other tenderness noted along patella , joint lines, tibia, femoral condyles. hips not tender to palpation L knee Palpation Location patella, fibula, joint line, tibia, medial and lateral condyles Palpation Findings Tenderness Palpation Details Tenderness along superomedial patella, worse after resisted extension; minimally tender to palpation. No other tenderness noted along patella , joint lines, tibia, femoral condyles. hips not tender to palpation Skin Assessment Other Assessments Skin Assessment Comments No swelling noted in B knees PT-OP-K Range of Motion Start: 04/17/23 18:16 Freq: Status: Active Protocol: Document 08/26/23 09:04 NM (Rec: 08/26/23 09:46 NM [id number]) Knee Goniometric Range of Motion Knee Right Flexion Active (degrees) 145 Flexion Passive (degrees) 147 Extension Active (degrees) 0 Hyper-Extension Active 4 Comments No pain with active flex/ext translation Left Flexion Active (degrees) 140 Flexion Passive (degrees) 145 Extension Active (degrees) 0 Hyper-Extension Active 5 Comments No pain with active flex/ext translation PT-OP-L Special Tests Start: 04/17/23 18:16 Freq: Status: Active Protocol: Document 04/18/23 08:14 NM (Rec: 04/18/23 09:44 NM [id number]) Special Tests Hip Special Tests scour Test Results - Comments bilaterally Labrum Test Results - Comments anterior and posterior labral tests; bilaterally SITA Test Results - Comments decreased mobility but not painful; bilaterally FADIR Test Results - Comments bilaterally Knee Special Tests Patellar Grind Test Test Results + Marlin Test Test Results - Comments bilaterally Posterior Sag Test Results - Comments bilaterally Posterior Draw Test Results - Comments bilaterally George Test Results - Comments bilaterally Anterior Draw Test Results - Comments bilaterally Varus Test Results - Comments 0 and 30 deg; bilaterally Valgus Test Results - Comments 0 and 30 deg; bilaterally PT-OP-M Strength Start: 04/17/23 18:16 Freq: Status: Active Protocol: Document 08/26/23 09:04 NM (Rec: 08/26/23 09:46 NM [id number]) Hip Strength Hip Manual Muscle Testing Right Flexion (L2) 5 Normal Extension (S1) 4+ Good+ Abduction 4+ Good+ Adduction 5 Normal External Rotation 5 Normal Internal Rotation 5 Normal Comments IE: 4-/5 MMT flex/abd/ext, 4/5 for add/IR/ER 05/22/23: 4/5 hip flex, 4+/5 for ext/abd 06/20/23: 4+/5 for hip abd/ext, 5/5 for all others 08/13/23, 08/01/23: 5/5 Left Flexion (L2) 5 Normal Extension (S1) 4+ Good+ Abduction 4+ Good+ Adduction 5 Normal External Rotation 5 Normal Internal Rotation 5 Normal Comments IE: 4-/5 flex/ext/abd, 4/5 for ER/IR/ADD 05/22/23: 4/5 hip flex/abd, 4+/ 5 ext 06/20/23: 4+/5 for hip abd/ext, 5/5 for all others 08/26/23, 08/13/23, 08/01/23: 5/5 Knee Strength Knee Manual Muscle Testing Right Flexion (S2) 4+ Good+ Extension (L3) 4+ Good+ Comments IE: 4+/5, Pain with resisted extension 05/22/23: 4+/5 MMT, no pain 06/20/23: 4+/5, no pain 08/26/23, 08/13/23, 08/01/23: 4+/5 Left Flexion (S2) 4+ Good+ Extension (L3) 4+ Good+ Comments IE: 4+/5, Pain with resisted extension 05/22/23: no pain, 4+/5 06/20/23: 4+/5, no pain 08/26/23, 08/13/23, 08/01/23: 4+/5 PT-OP-T Assessment and Plan Start: 04/17/23 18:16 Freq: Status: Active Protocol: Document 10/04/23 08:47 NM (Rec: 10/04/23 08:55 NM [id number]) Physical Therapy Assessment Goals Six Impairment activity/ADLs Impairment B knee pain reported with jumping or descending from truck Detention Goal (LTG) Pt will report no knee pain or no increase in B knee pain with descending from truck in order to demonstrate improved QOL and 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 LTG Duration 12 weeks Five Impairment activity/ADLs Impairment pain reported with hiking along quad and patellar tendons [place] [employer] Goal (LTG) Pt will report no increase in baseline knee pain with hiking easy-moderate level hikes in order to demonstrate improved activity tolerance and return to PLOF LTG Duration 12 weeks Four Impairment strength Impairment B hip flex, ext, abd 4-/5 MMT Short Term Goal (STG) Pt will increase B hip flex, ext, and abd MMT to at least 4 /5 in order to demonstrate improved strength required for squats, stairs, and other functional activities STG Duration 5 weeks MET Detention Goal (LTG) Pt will increase B hip flex, ext, and abd MMT to at least 5 /5 in order to demonstrate improved strength required for squats, stairs, and other functional activities 06/20/23: MET: 4+/5 for hip abd /ext, 5/5 for hip flex/ER/IR 08/01/23: 5/5, goal MET LTG Duration 10 weeks MET, GOAL UPDATED- MET Three Impairment HEP Impairment not performing HEP or daily exercise program Short Term Goal (STG) Pt will report compliance with HEP at least 3x/wk in order to demonstrate return to activity and to maximize gains made during PT sessions 05/22/23: 4-5x/wk STG Duration 5 weeks MET [place] [employer] Goal (LTG) Pt will report at least 50% return to prior level of workouts 3x/wk in order to demonstrate return to activity , improved pain management, and maintenance program for independent exercise. 06/20/23: working out 2x/wk, less than 50% but improved since IE 08/01/23: not performing at least 3x/wk. Educated on stretching every day, strengthening 3x/wk 08/26/23: 3x/wk LTG Duration 10 weeks MET Two Impairment function Impairment 10 B squats painful with excess knee valgus and pronation Short Term Goal (STG) Pt will perform at least 10 bilateral squats without pain or compensation in order to demonstrate improved quad control and glute activation for functional activities. 05/22/23: 10 bilateral squats w /o pain or compensation using hip hinge STG Duration 5 weeks MET [place] [employer] Goal (LTG) Pt will be able to perform at least 10 single leg squats without pain or compensation in order to demonstrate improved quad control and glute activation for functional activities. 06/20/23: able to perform 10 single leg squats with pain <1 /10, but demonstrates compensations with knee valgus melsisa with increased depth, decreased ankle dorsiflexion, and excessive knee over toe with slight hip rotation (R side only) 08/01/23: 10 reps, quad pain only in midrange of squat, none with initiation or depth 08/26/23: 10 reps bilaterally from chair, w/o pain and good form but less control on descent with RLE LTG Duration 10 weeks MET One Impairment function Short Term Goal (STG) Pt will perform at least 10 eccentric step downs without compensation and reports of <3 /10 B knee pain in order to demonstrate improved hip strength and quad control 05/22/23: able to perform 10 step downs eccentric from 6 step with pain 1/10 L knee, 2/ 10 R knee before taping, 1/10 R knee with taping and 0/10 L knee with taping STG Duration 5 weeks MET Detention Goal (LTG) Pt will be able to perform at least 12 stairs without reports of increased pain in order to demonstrate improved hip strength and quad control 06/20/23: 14 stairs with 1/10 R knee pain; demos decreased hip strength, ankle mobility, no valgus; 4 eccentric step down 08/01/23: reports still painful with stairs but minimal 08/26/23: pain reported if large number of stairs, more similar to hiking vs stairs LTG Duration 10 weeks MET Assessment Summary Assessment Pt was evaluated in March 2023 for B knee pain. Pt attended x19 visits following evaluation, cancelled 8 visits , and no-showed 2 visits. He made progress toward his LTGs, meeting several. Since beginning PT, pt has consistently reported that he only has pain with higher level activities and no longer has pain at rest. He reports minimal limitations with performing ADLs/IADLs due to his knee. At last progress note, pt continues to report B knee pain with higher level activity. He was progressing through a patellar and quad tendon loading program. 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 PT educated pt on body mechanics and had pt demonstrate in clinic, in addition to education on activity modification as able. Pt consistently required cues for correct body mechanics to limit stress on his knees. Pt was able to progress partially through a impact loading activities; however, he had increased knee pain, so program was discontinued. Pt continues to run, jump, and perform recreational activities despite reporting increase in pain levels. If symptoms persist, he would likely benefit from imaging or further assessment for inflammatory disease based on pt family hx and reports of mutiple joint pain. Pt did not receive further authorization to continue with PT after last visit in August 26, 2023. He will be discharged to maintenance program issued at last session and will need new PT auth to return to PT if desired. Physical Therapy Plan Discharge Physical Therapy Discharge Reasons No Longer Attending PT Discharge Comments Pt did not receive further authorization after August to continue PT. He will need a new referral to continue PT in the future Next Visit Focus/Plan Next Visit Plan discharge from PT
== END 2023-10-14 08:24 ==
LOC: PHYS 09:00
PROVIDERS: Family Provider Nurse Practitioner Family; PCP Nurse Practitioner Family; Referring Provider Nurse Practitioner Family; Visit Provider Nurse Practitioner Family
DX: M25.569 Pain in unspecified knee (principal); R53.1 Weakness; R26.89 Other abnormalities of gait and mobility
CPT/HCPCS: 97110; 97112; 97140; 97162; 97530; 97535